=== PATIENT | female | born 1955 | race Caucasian/White ===

== ENCOUNTER 2016-09-10 13:17 | Inpatient (IN) ==
[2016-09-10] MEDS ORDERED: Ondansetron 4 MG/2 ML VIAL IVP ONE (13:22)
[2016-09-10] MEDS: niCARdipine 40 MG/200 ML MLS IVC SCH ×2 (14:10→22:00)
--- NOTE | 2016-09-10 14:16 | Emergency Department Note ---
Disposition Clinical Impression: Hypertensive encephalopathy Disposition: Admitted As Inpatient Altered Mental Status HPI - General Chief Complaint: ED Altered Mental Status Stated Complaint: SOB/AMS Time Seen by Provider: 09/10/16 13:22 Source: patient, EMS Limitations: altered mental status - History of Present Illness HPI Narrative: 61-year-old female presents with altered mental status that started yesterday evening. Patient states that initially she started from some breath and had one bout of vomiting. Her noticed that she had difficulty naming things , describing things however she did not have slurred speech, facial drooping, unilateral weakness, numbness. She did have confusion. Patient denies fever, chills Patient woke up this morning and continued to be confused. Her saw she was running into aceves. She did not have a fall. Patient was taking to [facility] for further evaluation. Her blood pressure was 184 1:30 at [facility]. EKG showed sinus bradycardia with rate of [address]-T wave changes. Her CBC, BMP were within normal limits. ABG showed a PCO2 of 53 and a pH of 7.39. Analysis was negative for infection. D-dimer was 553. Patient was transferred to [place] as she cannot fit in to the [facility] CT machine. When patient presented, her NIHSS was 0. Blood pressure was 240/110. She was actively vomiting. Confused, but alert oriented to time, place, situation, was slow to react and answer questions or commands. EMS stated that she had left neglect however this was not found on our examination. She was quickly given IV Zofran, and started on a Nicardipine drip. - Related Data Home Medications Medication Instructions Recorded Confirmed Furosemide [Lasix] 20 mg PO DAILY 09/10/16 09/10/16 Glimepiride [Amaryl] 8 mg PO DAILY 09/10/16 09/10/16 HydrALAZINE 25 mg PO Q8HR 09/10/16 09/10/16 Insulin Glargine,Hum.rec.anlog 45 unit SQ HS 09/10/16 09/10/16 [Lantus Solostar] Lisinopril [Zestril] 40 mg PO DAILY 09/10/16 09/10/16 Metformin HCl [Fortamet] 1,000 mg PO BID 09/10/16 09/10/16 Metoprolol [Lopressor] 400 mg PO DAILY 09/10/16 09/10/16 Sertraline [Zoloft] 50 mg PO DAILY 09/10/16 09/10/16 Valsartan 80 mg PO DAILY 09/10/16 09/10/16 Allergies Allergy/AdvReac Type Severity Reaction Status Date / Time No Known Allergies Allergy Unverified 08/10/16 09:22 Review of Systems: Constitutional: Denies fever, chills, reports confusion HEENT: Denies headache, vision changes, neck pain, sore throat, rhinorrhea Heart: Denies chest pain palpitations Lungs: Reports shortness of breath. Denies cough. 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 Moderate distress with slow to respond to questions however does follow commands HEENT: Head atraumatic, normocephalic, EOMI, PERRLA, neck nontender to palpation , absent Lymphadenopathy, Moist Mucous Membranes, Heart: Regular rate and rhythm with no murmur Lungs: Clear to auscultation bilaterally Abdomen: Soft nontender, nondistended positive bowel sounds Extremities: Absent pedal edema, Neuro: Cranial nerves II through XII intact, sensation equal bilaterally, strength upper and lower extremity 5/5, alert oriented 3 Vascular: Pedal and radialpulses 2 out of 4 - General Limitations: altered mental status General appearance: in no apparent distress Course Course Narrative: We will obtain CT head, urine tox, ethanol level. Patient's d-dimer is 559. Age adjusted d-dimer for this patient is 590. Patient's wells criterio is 0. We will not obtain CTA chest due to low risk. - Reevaluation(s) Reevaluation #1: Patient's urine tox, ethanol level, CT head have been negative. Chest x-ray showed enlarged cardiac silhouette otherwise negative. Patient has been having difficulty with her blood pressure recently. She is on valsartan, metoprolol, furosemide, lisinopril for her blood pressure. We started the patient on nicardipine drip and brought her blood pressure down to 200/100. Patient already feels better. She is less confused. She is more conversational. Patient will be admitted for evaluation of hypertensive encephalopathy. Patient has had a stress test in the last 6 months that was negative for ischemia. Her echocardiogram shows EF of 55% with no wall motion abnormalities. Patient had a bilateral renal artery Doppler that was negative for any stenosis in June. Time: 15:25 Reevaluation #2: I talked to Dr. Rosas who stated that since patient has hypertensive encephalopathy she will need to be closely managed in the ICU due to her being on nicardipine drip. We will contact critical care doctor. Time: 15:33 Reevaluation #3: Patient was accepted by . Time: 15:39 Additional Reevaluation(s): 1605: Patient was seen by critical care doctor. At this point her blood pressure is in systolic 156/80. They would like to discontinue Nicordipine drip and monitor her blood pressure. 1636: Patient's blood pressure is increased to 194/98. Critical care doctor stated that since this is patient's normal blood pressure at home she can be admitted to the floor. We will contact hospitalist. 16:45: Dr. Rosas accepted patient for admission. Vital Signs Temperature 98.5 F 09/10/16 13:18 Pulse Rate 64 09/10/16 13:18 Respiratory Rate 16 09/10/16 13:18 Blood Pressure 245/128 09/10/16 13:18 O2 Sat by Pulse Oximetry 97 09/10/16 13:18 Temperature 98.5 F 09/10/16 13:18 Pulse Rate 63 09/10/16 16:30 Respiratory Rate 16 09/10/16 16:30 Blood Pressure 194/98 09/10/16 16:30 O2 Sat by Pulse Oximetry 96 09/10/16 16:30 Oxygen Delivery Oxygen Delivery Nasal Cannula Altered Mental Status - Medical Records Medical records reviewed: Yes I reviewed the patient's medical records. - Lab Data Lab results reviewed: Yes I reviewed the patient's lab results. Lab Results 09/10/16 09/10/16 Range/Units 14:09 14:40 Urine Opiates Screen Negative (Euwlbu=971) ng/mL Ur Barbiturates Screen Negative (Lxwous=204) ng/mL Ur Phencyclidine Scrn Negative (Cutoff=25) ng/mL Ur Amphetamines Screen Negative (Glqihu=9432) ng/mL U Benzodiazepines Scrn Negative (Nekkly=928) ng/mL Urine Cocaine Screen Negative (Cutoff= 300) ng/mL U Marijuana (THC) Screen Negative (Cutoff = 50) ng/mL Ethyl Alcohol < 10 (0-10) mg/dL - Radiology Data Radiology results reviewed: Yes I reviewed the patient's radiology results. - EKG Data EKG attestation: Yes I reviewed and interpreted this EKG. EKG results narrative: Sinus with a rate of 65. No ST-T wave changes. No changes from previous. Normal sinus rhythm. TPA Checklist - LKW: 3-4.5 hrs Add. Contraindications Patient/family understanding: The patient/family members have been counseled and understood the risk, benefit , and alternatives of treatment. Critical Care Time Critical Care Time: Yes Total Critical Care Time: 30 Attestation: The high probability of a clinically significant, sudden or life threatening deterioration of the [neurological, cardiac] system(s) required my full and direct attention, intervention and personal management. The aggregate critical care time was [30] minutes. This time is in addition to time spent performing reported procedures but includes the following: [x] Data Review and interpretation [x] Patient assessment and monitoring of vital signs [x] Documentation [x] Medication orders and management Attestation Statement - Attestation Attestation: I examined this patient and my medical decision-making was reviewed with the STRATEGIC INSIGHTS LEAD/PA/Advanced Practice Nurse/Resident Physician. I agree with the documented findings, disposition and treatment plan as described except to the extent set forth below. I had face to face time with the patient. Patient was seen at [facility] for some shortness of breath and altered mental status. They stated that they could not get a CT of her head or her chest as she would not fit into the scanner. Her d-dimer actually was lower than age-adjusted d-dimer. She was nauseated on arrival but was awake and alert. They were concerned that she was neglecting her left side which was not the case here. Her NIH stroke scale actually was 0 here. Physical examination she follows instructions. She is able to tell us where she's at and able to tell the date. CT of the head was negative. We started the patient on nicardipine drip with improvement in her blood pressure to 200/100 down from 240/119. Her mentation seemed to improve. She will be admitted to the ICU.
[2016-09-10 14:58] LABS: Amphetamine Screen,Urine Negative ng/mL (Cutoff=1000); Barbiturate Screen,Urine Negative ng/mL (Cutoff=200); Benzodiazepines Screen,Urine Negative ng/mL (Cutoff=200); Cannabinoid Screen,Urine Negative ng/mL (Cutoff = 50); Cocaine Screen,Urine Negative ng/mL (Cutoff= 300); Opiate Screen,Urine Negative ng/mL (Cutoff=300); Phencyclidine Screen,Urine Negative ng/mL (Cutoff=25)
[2016-09-10] MEDS ORDERED: 0.9 % Sodium Chloride 1,000 ML IVC SCH (17:30)
[2016-09-10] MEDS ORDERED: Perflutren Lipid Microsphere 1.3 ML in 0.9 % Sodium Chloride 8.7 ML IVP ONE (17:51)
[2016-09-10 18:15] LABS: BUN/Creatinine Ratio 17 (6-26); Blood Urea Nitrogen 13 mg/dL (7-20); Calcium 11.6 mg/dL (8.6-10.8); Carbon Dioxide 31 mEq/L (19-29); Chloride 100 mEq/L (98-109); Creatine Kinase 35 Units/L (29-168); Glucose 127 mg/dL (70-99); Magnesium 1.5 mg/dL (1.6-2.6); Osmolality,Calculated 294 (280-300); Potassium 4.1 mEq/L (3.5-4.5); Sodium 141 mEq/L (136-145); eGFR For African Americans > 60 (> 60); eGFR For Non-African Americans > 60 (> 60)
[2016-09-10] MEDS ORDERED: Magnesium Sulfate 2 GM in D5% in Water 100 ML IVPB ONE (18:44)
--- NOTE | 2016-09-10 18:53 | Internal Med History&Physical ---
Date of Encounter: 09/10/16 Time of Encounter: 18:48 Assessment and Plan (1) Hypertensive encephalopathy Current visit: Yes Status: Acute Patient presents with hypertensive encephalopathy. mentioned that her blood pressure has been uncontrolled around one 80s over 100. We plan to decrease her blood pressure by 15% to a target of approximately 180/100. Currentlly she is off nicardipine drip because her pressure decreased after its initiation. If pressure starts increasing again will start the smaller dose of macabre nicardipine drip. Avoid reducing the pressure to less than 180/100. We do neuro checks every 2 hours or with any change in her mental status. She has headache but no neck pain.. No evidence of intracranial bleed on CT scan. If she continues to have headache despite control of pressure will repeat CT scan and/or LP to rule out subarachnoid bleed. I will ask cardiology service to follow the patient. Check renal Doppler, renin, aldosterone, metanephrins. Check echo. She is full code. Prognosis guarded. Internal Medicine - H&P: HPI Chief complaint: Altered mental status. History of present illness: Ms. Carlson is a 61 year old female with history of resistant hypertension on for blood pressure medications including a diuretic to which she is compliant according to her presented to outside emergency room today because of altered mental status. noted today that his has been less alert and interactive, confused, slurred speech, and unsteadiness. She has been having headache but no neck pain. She has also been short of breath with any exertion. She had went to outside ER and CT head showed no intracranial bleed. She was found to have severe HTN with SBP as high as 240 mmHg and diastolic 100- 120s. She was transferred to our facility, started on nicardipine drip with some improvement in her level of alertness. No neck pain. No seizures. No chest pain. No focal upper or lower extremity weakness or facial assymetry. No fever. Patient's mentioned that her blood pressure usually runs in the range of 180s systolic over 100 diastolic Past Med Surg Social Fam HX - Past Medical History Medical history: diabetes, hyperlipidemia, hypertension Psychiatric history: anxiety - Past Surgical History Surgical History: appendectomy, cholecystectomy, hysterectomy - Social History Smoking Status: Former smoker Smokeless Tobacco Status: No Alcohol use: none Drug use: none - Family History Mother Living Status: Cause of : cancer Father Cause of : heart aneursym Internal Medicine - H&P: Meds Ammonium Lactate [Lac-Hydrin Five] 1 appl TP BID 09/10/16 [History] Atorvastatin [Lipitor] 40 mg PO HS 09/10/16 [History] Furosemide [Lasix] 20 mg PO DAILY 09/10/16 [History] Glimepiride [Amaryl] 8 mg PO DAILY 09/10/16 [History] HydrALAZINE 25 mg PO Q8HR 09/10/16 [History] Insulin Glargine,Hum.rec.anlog [Lantus Solostar] 45 unit SQ HS 09/10/16 [History ] Lisinopril [Zestril] 40 mg PO DAILY 09/10/16 [History] Metformin HCl [Fortamet] 1,000 mg PO BID 09/10/16 [History] Metoprolol [Lopressor] 400 mg PO DAILY 09/10/16 [History] Sertraline [Zoloft] 50 mg PO DAILY 09/10/16 [History] Allergies No Known Allergies Allergy (Verified 09/10/16 18:41) All Systems PM: A 10-system review of systems was performed and is negative for pertinent findings except as documented above in the HPI. Review of systems: 10 point review systems is negative except for HPI - Constitutional Vitals: Temp Pulse Resp BP Pulse Ox 98.1 F 66 18 189/93 98 09/10/16 17:17 09/10/16 18:00 09/10/16 18:00 09/10/16 18:00 09/10/16 18:00 Exam: Gen.: patient is stuporous. arousable to verbal stimuli, oriented x3. No distress. Cardiac: normal S1 S2 no additional sounds or murmurs. Chest: Fair air entry. Limited exam because she cant take adequate inspiration Abdomen: Soft, non tender, non distended, normal BS LE: lax calf muscles Neuro: Patient moving all 4 extremeties. NO focal deficits. She is stuporous and cant comply with detailed neuro exam Internal Med - H&P Results - Labs CBC & Chem 7: 09/10/16 17:48 Labs: BMP 09/10/16 17:48 Sodium 141 Potassium 4.1 Chloride 100 Carbon Dioxide 31 H BUN 13 Creatinine 0.78 Glucose 127 H Calcium 11.6 H Cardiac Enzymes 09/10/16 Range/Units 17:48 Troponin I 0.02 (0-0.03) ng/mL
[2016-09-11] MEDS: Insulin LISPRO 300 UNITS/3 ML VIAL SQ SCH ×4 (01:35→20:00)
[2016-09-11 03:28] LABS: Basophils # 0.1 K/mcL (0.0-0.2); Basophils % 0.3 %; Eosinophils # 0.1 K/mcL (0.0-0.6); Eosinophils % 0.6 %; Hematocrit 44.9 % (35.3-44.9); Hemoglobin 14.3 g/dL (11.5-15.4); Immature Granulocytes % 0.5 % (0-4); Lymphocytes # 2.1 K/mcL (0.6-4.6); Lymphocytes % 13.4 %; Mean Corpuscular HGB Conc 31.8 g/dL (31.6-35.5); Mean Corpuscular Hemoglobin 25.9 pg (28.0-33.3); Mean Corpuscular Volume 81.3 fL (83.0-100.0); Monocytes # 1.2 K/mcL (0.0-1.3); Monocytes % 7.6 %; Neutrophils # 12.2 K/mcL (1.6-8.9); Platelet Count 225 K/mcL (140-400); Red Blood Count 5.52 M/mcL (3.82-4.97); Red Cell Distribution Width 15.6 % (11.5-14.5); Segmented Neutrophils % 77.6 %
[2016-09-11 03:41] LABS: BUN/Creatinine Ratio 18 (6-26); Blood Urea Nitrogen 16 mg/dL (7-20); Calcium 10.9 mg/dL (8.6-10.8); Carbon Dioxide 31 mEq/L (19-29); Chloride 100 mEq/L (98-109); Glucose 96 mg/dL (70-99); Magnesium 2.2 mg/dL (1.6-2.6); Osmolality,Calculated 293 (280-300); Potassium 4.1 mEq/L (3.5-4.5); Sodium 141 mEq/L (136-145); eGFR For African Americans > 60 (> 60); eGFR For Non-African Americans > 60 (> 60)
[2016-09-11] MEDS: niCARdipine 40 MG/200 ML MLS IVC SCH (06:27)
[2016-09-11] MEDS: Pantoprazole 40 MG VIAL IVP SCH (08:37)
[2016-09-11] MEDS ORDERED: Furosemide 20 MG TABLET PO SCH (09:00)
[2016-09-11] MEDS: Lisinopril 20 MG TABLET PO SCH (10:01)
[2016-09-11] MEDS: Metoprolol 100 MG TABLET PO SCH ×2 (10:01→19:43)
[2016-09-11 10:09] LABS: Bilirubin,Urine Small (Negative); Blood,Urine Large (Negative); Clarity,Urine Turbid (Clear); Color,Urine Dark Yellow (Yellow); Glucose,Urine (UA) Normal (Normal); Ketones,Urine Negative (Negative); Leukocyte Esterase,Urine Small (Negative); Nitrite,Urine Negative (Negative); Protein,Urine 100 mg/dL (Neg-Trace); Specific Gravity,Urine 1.028 (1.010-1.025); Urobilinogen,Urine Normal (Normal)
[2016-09-11 10:11] LABS: Bacteria,Urine None Seen per hpf (None-Few); Squamous Epithelial Cell,Urine Many per lpf (None-Few); WBC,Urine 15-30 per hpf (0-3)
--- NOTE | 2016-09-11 10:36 | ECHO - Doppler Report ---
Limited Echo with Imaging Enhancement Agent Name: Marcia Carlson Date of Study: 09/10/2016 Date: 1955 Ht: 67.0 in Medical Record#: [id number] Age: 61 Wt: 300.0 lb Gender: Female BSA: 2.4 Order #: [id number] Location: [facility] Room #: 12 Reading Physician: Bridget Mosley DO Prosthetic Dentist: Renee Carrillo RVT Ordering Physician: Eduardo Rosas MD Primary Physician: MONICA Ragland Indications: LV Function Impressions: LIMITED STUDY LVEF 60-65%. Definity was given. Suboptimal PLAX image to accurately measure LV size and wall thickness. RV is not well visualized. IVC is normal in size. Left Ventricular Wall Motion: Rest Echo Findings All wall segments showed normal motion. Findings: Study Quality * Technically sub-optimal due to body habitus. ECG Findings * Normal sinus rhythm. Left Ventricle * Definity echo contrast was used. * LVEF 60-65%. * Suboptimal PLAX view for LV measurements. Left Atrium * Normal left atrial size. Right Ventricle * RV is suboptimally visualized. IVC * Normal IVC dimensions and inspiratory collapse. History Hypertension Diabetes Hypercholesteremia Family History of CAD 2-17-17 a Previous Echo was performed. Contrast: Definity 1.3 ml in 8.7 ml of saline 2 ml. Measurements: BP: 189/ 93 2D Normal Values IVSd: 1.60 cm 0.6 - 1.0 cm LVIDd: 5.50 cm 3.7 - 5.6 cm LVPWd: 1.40 cm 0.6 - 1.1 cm LVIDs: 3.20 cm 1.5 - 3.6 cm %FS: 42.90 cm >25 % LA volume: 78 Updated by Bridget Mosley on 09/11/2016 10:29:23 AM electronically signed on 09/11/2016 10:30:25 AM with status of Final Wall Motion Kraus: 1=Normal, 2=Hypokinesis, 3=Akinesis, 4=Dyskinesis, 5=Aneurysmal, 6=Hyperkinetic, X=Not Visualized (Blank)=Missing
--- NOTE | 2016-09-11 11:46 | Internal Med Progress Note ---
Date of Encounter: 09/11/16 Time of Encounter: 11:46 - Assessment and plan (1) Acute encephalopathy Current Visit: Yes Status: Acute Assessment and plan: Patient with no objective cause at this time, save for Uncontrolled HTN At time of review, her BP has improved without medications Patient otherwise has no neurologic deficits, she is not aphasic or dysarthric and she moves all limbs spontaneously UA is unremarkable Urine toxicology was negative Head CT was unremarkable ECHO showed LVEF 60-65%, suboptimal study, otherwise normal EKG with no acute findings Head CT no acute events Obtain MRI, if negative, consider psych component Feed patient OOB to chair Resume home meds Fall precautions (2) Hypertensive urgency Current Visit: Yes Status: Acute Assessment and plan: As above (3) Morbid obesity Current Visit: Yes Status: Chronic Assessment and plan: Encourage weight loss Qualifiers: Obesity type: unspecified obesity type Qualified Code(s): E66.01 - Morbid ( severe) obesity due to excess calories - Subjective Interval history: 61 Y/O F with MH of Uncontrolled HTN, Morbid Obesity, HLD, Anxiety She is admitted and being managed for acute encephalopathy secondary to uncontrolled HTN Patient was said to have been altered on admission BP improved without NIcardipine drip Seen at bedside with RN Patient is awake, alert, oriented to time and place but not to person, she seems to be very slow (per RN this is new as the patient had been coversant with her prior to my arrival) - Constitutional Vitals: Temp Pulse Resp BP Pulse Ox 97.9 F 54 14 144/72 94 09/11/16 07:39 09/11/16 11:30 09/11/16 11:30 09/11/16 11:30 09/11/16 11:30 General appearance: Present: A&O X 2, morbidly obese, pleasant, no acute distress - Head Head exam: Present: atraumatic, normocephalic - Eye Eye exam: Present: PERRL, conjuntiva pink, sclera anicteric Pupils: Present: PERRL - Neck Neck exam general surgery: Present: supple, trachea midline. Absent: lymphadenopathy - Respiratory Respiratory exam: Present: CTAB. Absent: accessory muscle use, rales, rhonchi, wheezes - Cardiovascular Cardiovascular exam: Present: RRR, +S1, +S2. Absent: diastolic murmur, gallop, rubs, systolic murmur - GI/Abdominal GI/Abdominal exam: Present: normal bowel sounds, soft, no peritoneal signs. Absent: distended, tenderness - Extremities Exam Extremities exam: Present: warm, radial pulses palpable and symetrical. Absent : calf tenderness, cyanotic, pedal edema - Neurological Exam Neurological exam: Present: alert, CN II-XII intact, no focal deficits. Absent : oriented X3, pronater drift, facial droop, speech deficit - Skin Skin exam: Present: dry, intact Internal Medicine: Result - Labs CBC & Chem 7: 09/11/16 03:13 09/11/16 03:13 Labs: Short CBC 09/11/16 Range/Units 03:13 WBC 15.7 H D (4.3-11.1) K/mcL Hgb 14.3 (11.5-15.4) g/dL Hct 44.9 (35.3-44.9) % Plt Count 225 (140-400) K/mcL Neutrophils # 12.2 H (1.6-8.9) K/mcL BMP 09/11/16 03:13 Sodium 141 Potassium 4.1 Chloride 100 Carbon Dioxide 31 H BUN 16 Creatinine 0.88 Glucose 96 Calcium 10.9 H Cardiac Enzymes 09/10/16 Range/Units 22:46 Troponin I 0.01 (0-0.03) ng/mL Urine 09/11/16 Range/Units 09:55 Urine Color Dark Yellow (Yellow) Urine Clarity Turbid A (Clear) Urine pH 5.0 (5.0-8.0) pH Units Ur Specific [place] 1.028 H (1.010-1.025) Urine Protein 100 H (Neg-Trace) mg/dL Urine Glucose (UA) Normal (Normal) mg/dL - VTE Documentation of Mechanical Device: Intermittent pneumatic compression device Consult Discharge Plan - Plan Referrals: Talisha Desouza, [employer] [Primary Care Provider] -
[2016-09-11] MEDS ORDERED: hydrALAZINE 25 MG TABLET PO SCH (16:00)
[2016-09-11] MEDS: niCARdipine 20 MG/200 ML MLS IVC SCH ×2 (16:05→19:42)
[2016-09-11] MEDS: hydrALAZINE 25 MG TABLET PO SCH (16:25)
[2016-09-12] MEDS: hydrALAZINE 25 MG TABLET PO SCH ×3 (01:12→15:45)
[2016-09-12 05:26] LABS: Basophils % 0.3 %; Eosinophils # 0.1 K/mcL (0.0-0.6); Eosinophils % 0.6 %; Hematocrit 42.4 % (35.3-44.9); Immature Granulocytes % 0.6 % (0-4); Lymphocytes # 2.5 K/mcL (0.6-4.6); Lymphocytes % 19.1 %; Mean Corpuscular HGB Conc 30.7 g/dL (31.6-35.5); Mean Corpuscular Hemoglobin 25.3 pg (28.0-33.3); Mean Corpuscular Volume 82.7 fL (83.0-100.0); Mean Platelet Volume 11.1 fL (9.4-12.4); Monocytes # 1.3 K/mcL (0.0-1.3); Monocytes % 10.2 %; Neutrophils # 9.1 K/mcL (1.6-8.9); Platelet Count 206 K/mcL (140-400); Red Blood Count 5.13 M/mcL (3.82-4.97); Red Cell Distribution Width 15.9 % (11.5-14.5); Segmented Neutrophils % 69.2 %
[2016-09-12 05:40] LABS: BUN/Creatinine Ratio 28 (6-26); Blood Urea Nitrogen 24 mg/dL (7-20); Calcium 9.7 mg/dL (8.6-10.8); Carbon Dioxide 29 mEq/L (19-29); Chloride 102 mEq/L (98-109); Glucose 96 mg/dL (70-99); Osmolality,Calculated 290 (280-300); Sodium 138 mEq/L (136-145); eGFR For African Americans > 60 (> 60); eGFR For Non-African Americans > 60 (> 60)
[2016-09-12 05:42] LABS: Potassium 4.5 mEq/L (3.5-4.5)
[2016-09-12] MEDS: Furosemide 20 MG TABLET PO SCH (08:12)
[2016-09-12] MEDS: Insulin LISPRO 300 UNITS/3 ML VIAL SQ SCH ×3 (08:12→18:29)
[2016-09-12] MEDS: Lisinopril 20 MG TABLET PO SCH (08:13)
[2016-09-12] MEDS: Metoprolol 100 MG TABLET PO SCH ×2 (08:13→20:23)
[2016-09-12] MEDS: Pantoprazole 40 MG VIAL IVP SCH (08:14)
--- NOTE | 2016-09-12 10:09 | Internal Med Progress Note ---
Date of Encounter: 09/12/16 Time of Encounter: 09:00 - Assessment and plan (1) Acute encephalopathy Current Visit: Yes Status: Acute Assessment and plan: Patient with no objective cause at this time, save for Uncontrolled HTN BP improved with nicardipine Patient has no neurologic deficits this a.m UA is unremarkable Urine toxicology was negative Head CT was unremarkable ECHO showed LVEF 60-65%, suboptimal study, otherwise normal EKG with no acute findings Brain MRI unremarkable (2) Hypertensive urgency Current Visit: Yes Status: Acute Assessment and plan: IMproved Continue home meds (3) Morbid obesity Current Visit: Yes Status: Chronic Assessment and plan: Encourage weight loss Qualifiers: Obesity type: unspecified obesity type Qualified Code(s): E66.01 - Morbid ( severe) obesity due to excess calories (4) Leukocytosis Current Visit: Yes Status: Acute Assessment and plan: Afebrile patient No focal source of infection UA is unremarkable CXR done this a.m no infiltrates NO meningeal signs No GI symptoms Continue to monitor No antibiotics for now, will follow Qualifiers: Leukocytosis type: unspecified Qualified Code(s): D72.829 - Elevated white blood cell count, unspecified - Subjective Interval history: 61 Y/O F with MH of Uncontrolled HTN, Morbid Obesity, HLD, Anxiety She is admitted and being managed for acute encephalopathy secondary to uncontrolled HTN Seen at bedside, much more awake and alert, no new complains today - Constitutional Vitals: Temp Pulse Resp BP Pulse Ox 99.3 F 68 16 127/75 95 09/12/16 08:00 09/12/16 09:00 09/12/16 09:00 09/12/16 09:00 09/12/16 09:00 General appearance: Present: A&O X 2, morbidly obese, pleasant, no acute distress - Head Head exam: Present: atraumatic, normocephalic - Eye Eye exam: Present: PERRL, conjuntiva pink, sclera anicteric Pupils: Present: PERRL - Neck Neck exam general surgery: Present: supple, trachea midline. Absent: lymphadenopathy - Respiratory Respiratory exam: Present: CTAB. Absent: accessory muscle use, rales, rhonchi, wheezes - Cardiovascular Cardiovascular exam: Present: RRR, +S1, +S2. Absent: diastolic murmur, gallop, rubs, systolic murmur - GI/Abdominal GI/Abdominal exam: Present: normal bowel sounds, soft, no peritoneal signs. Absent: distended, tenderness - Extremities Exam Extremities exam: Present: warm, radial pulses palpable and symetrical. Absent : calf tenderness, cyanotic, pedal edema - Neurological Exam Neurological exam: Present: alert, CN II-XII intact, oriented X3, no focal deficits. Absent: pronater drift, facial droop, speech deficit - Skin Skin exam: Present: dry, intact Internal Medicine: Result - Labs CBC & Chem 7: 09/12/16 05:18 09/12/16 05:18 Labs: Short CBC 09/12/16 Range/Units 05:18 WBC 13.1 H (4.3-11.1) K/mcL Hgb 13.0 (11.5-15.4) g/dL Hct 42.4 (35.3-44.9) % Plt Count 206 (140-400) K/mcL Neutrophils # 9.1 H (1.6-8.9) K/mcL BMP 09/12/16 05:18 Sodium 138 Potassium 4.5 Chloride 102 Carbon Dioxide 29 BUN 24 H Creatinine 0.87 Glucose 96 Calcium 9.7 Urine 09/11/16 Range/Units 09:55 Urine Color Dark Yellow (Yellow) Urine Clarity Turbid A (Clear) Urine pH 5.0 (5.0-8.0) pH Units Ur Specific [place] 1.028 H (1.010-1.025) Urine Protein 100 H (Neg-Trace) mg/dL Urine Glucose (UA) Normal (Normal) mg/dL - Impressions Impressions Brain MRI 09/11/16 11:45 IMPRESSION: 1. No acute intracranial abnormality. Specifically, no acute infarction. 2. Periventricular, subcortical, and patchy pontine white matter signal abnormality compatible with mild to moderate chronic microvascular ischemic changes. D/ / Lester Smith MD / Lester Smtih MD Interpreting Provider: Lester Smith MD Chest X-Ray 09/12/16 08:26 IMPRESSION: No acute cardiopulmonary process identified. D/ / Landon Kellogg MD / Landon Kellogg MD Interpreting Provider: Landon Kellogg MD - VTE Documentation of Mechanical Device: Intermittent pneumatic compression device Consult Discharge Plan - Plan Referrals: Talisha Desouza, [employer] [Primary Care Provider] -
[2016-09-12] MEDS ORDERED: D5% in Water 1,000 ML IVC PRN (17:42)
[2016-09-12] MEDS ORDERED: *HR* Dextrose 50 % in Water (Syg) 50 ML SYRINGE IVP PRN (17:42)
[2016-09-12] MEDS ORDERED: Dextrose Gel 15 GM PO PRN ×2 (17:42)
[2016-09-12] MEDS: niCARdipine 20 MG/200 ML MLS IVC SCH ×5 (20:09→23:07)
[2016-09-12] MEDS ORDERED: Insulin LISPRO 300 UNITS/3 ML VIAL SQ SCH (21:00)
[2016-09-13] MEDS: hydrALAZINE 25 MG TABLET PO SCH ×2 (00:10→08:18)
[2016-09-13] MEDS: niCARdipine 20 MG/200 ML MLS IVC SCH ×2 (03:09→07:51)
[2016-09-13 03:33] LABS: Basophils # 0.1 K/mcL (0.0-0.2); Basophils % 0.4 %; Eosinophils # 0.1 K/mcL (0.0-0.6); Eosinophils % 1.1 %; Hematocrit 44.7 % (35.3-44.9); Hemoglobin 13.6 g/dL (11.5-15.4); Immature Granulocytes % 0.6 % (0-4); Lymphocytes # 2.3 K/mcL (0.6-4.6); Lymphocytes % 19.7 %; Mean Corpuscular HGB Conc 30.4 g/dL (31.6-35.5); Mean Corpuscular Hemoglobin 25.4 pg (28.0-33.3); Mean Corpuscular Volume 83.6 fL (83.0-100.0); Mean Platelet Volume 11.1 fL (9.4-12.4); Monocytes # 1.3 K/mcL (0.0-1.3); Monocytes % 10.7 %; Neutrophils # 7.9 K/mcL (1.6-8.9); Platelet Count 203 K/mcL (140-400); Red Blood Count 5.35 M/mcL (3.82-4.97); Red Cell Distribution Width 16.8 % (11.5-14.5); Segmented Neutrophils % 67.5 %
--- NOTE | 2016-09-13 06:10 | Electrocardiograph Report ---
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
[2016-09-13] MEDS: Insulin LISPRO 300 UNITS/3 ML VIAL SQ SCH ×2 (08:18→12:39)
[2016-09-13] MEDS: Metoprolol 100 MG TABLET PO SCH (08:18)
[2016-09-13] MEDS: Pantoprazole 40 MG VIAL IVP SCH (08:19)
[2016-09-13] MEDS: Lisinopril 20 MG TABLET PO SCH (08:19)
[2016-09-13] MEDS: Furosemide 20 MG TABLET PO SCH (08:19)
--- NOTE | 2016-09-13 08:58 | Discharge Summary ---
Date of Encounter: 09/13/16 Time of Encounter: 08:57 - Discharge Diagnosis (1) Acute encephalopathy Priority: Primary Status: Resolved (2) Hypertensive urgency Priority: Primary Status: Resolved (3) Morbid obesity Priority: Secondary Status: Chronic Qualifiers: Obesity type: unspecified obesity type Qualified Code(s): E66.01 - Morbid ( severe) obesity due to excess calories (4) Leukocytosis Priority: Primary Status: Resolved Qualifiers: Leukocytosis type: unspecified Qualified Code(s): D72.829 - Elevated white blood cell count, unspecified - Discharge Medications Prescriptions: HydrALAZINE 50 mg PO Q8HR #120 tablet Metoprolol [Lopressor] 200 mg PO DAILY #60 tablet Home Medications: Ammonium Lactate [Lac-Hydrin Five] 1 appl TP BID 09/10/16 [History] Atorvastatin [Lipitor] 40 mg PO HS 09/10/16 [History] Furosemide [Lasix] 20 mg PO DAILY 09/10/16 [History] Glimepiride [Amaryl] 8 mg PO DAILY 09/10/16 [History] Insulin Glargine,Hum.rec.anlog [Lantus Solostar] 45 unit SQ HS 09/10/16 [History ] Lisinopril [Zestril] 40 mg PO DAILY 09/10/16 [History] Metformin HCl [Fortamet] 1,000 mg PO BID 09/10/16 [History] Sertraline [Zoloft] 50 mg PO DAILY 09/10/16 [History] HydrALAZINE 50 mg PO Q8HR #120 tablet 09/13/16 [Rx] Metoprolol [Lopressor] 200 mg PO DAILY #60 tablet 09/13/16 [Rx] Allergies/Adverse Reactions: Allergies No Known Allergies Allergy (Verified 09/10/16 18:41) Procedures/tests Complete & Pending: Procedures Performed prior 72 hours Category Date Time Status MR head/brain wo con [MR] Stat MRI 09/11/16 11:45 Completed Date of admission: 09/10/16 18:58 Primary care physician: Talisha Desouza Discharging clinician: Dany Cleaning Anticipated date of discharge: 09/13/16 - Patient Status Disposition: Home, Self-Care Condition: Fair Functional capacity at discharge: independent ambulation Overall status at discharge: patient is back to baseline - Discharge Instructions Follow Up With: Talisha Desouza CNP [Primary Care Provider] - 09/20/16 11:00 am - Diet and Activity Activity: resume usual activities as tolerated Diet: low salt diet Interval History: Ms. Carlson is a 61 year old female with history of resistant hypertension on for blood pressure medications including a diuretic to which she is compliant according to her presented to outside emergency room 09/10/16 because of altered mental status. noted his has been less alert and interactive, confused, slurred speech, and unsteadiness. She had been having headache but no neck pain. She had also been short of breath with any exertion. She had went to outside ER and CT head showed no intracranial bleed. She was found to have severe HTN with SBP as high as 240 mmHg and diastolic 100-120s. She was transferred to our facility, started on nicardipine drip with some improvement in her level of alertness. No neck pain. No seizures. No chest pain. No focal upper or lower extremity weakness or facial assymetry. No fever. Patient's mentioned that her blood pressure usually runs in the range of 180s systolic over 100 diastolic Hospital course: Patient was admitted and managed for acute encephaloathy from hypertensive urgency. Work up during this hospitalization included UA which was unremarkable, Urine toxicology was negative, Head CT was unremarkable, Brain MRI with no active or acute findings, CXR and EKG unremarkable, ECHO showed LVEF 60-65%, suboptimal study, otherwise normal Patient was managed with IV Nicardipine infusion and er BP improved with resumption of her home meds Of note, patient reports not taking "one of my medications" because it made me sick Patient's home meds were resumed and had worked for her BP in the hospital It is likely that patient is very not compliant with her medications She is discharged home on Hydralazine 50mg q8hr, Lasix 20mg daily, Lopressor was decreased from 400mg daily to 200mg daily, Lisinopril was continued at 40mg daily Patient counselled extensively on sodium intake and compliance with medications and dietary restriction She is also counselled on benefits of weight loss for her chronic medical conditions She qualifies for evaluation for bariatric surgery, advised to discuss with PCP She has no neurological deficits, vitals have been stable and the patient is stable for discharge home with family. - Time Spent with Patient Total time spent providing and/or coordinating discharge services: Greater than 30 minutes (35 minutes spent preparing discharge, chart review, patient encounter, med rec and prescription and documentation) - Constitutional Vitals: Temp Pulse Resp BP Pulse Ox 98.3 F 63 16 148/79 98 09/13/16 08:33 09/13/16 08:00 09/13/16 08:00 09/13/16 08:00 09/13/16 08:00 General appearance: Present: A&O X 3, morbidly obese, pleasant, no acute distress - Head Head exam: Present: atraumatic, normocephalic - Eye Eye exam: Present: PERRL, conjuntiva pink, sclera anicteric Pupils: Present: PERRL - Neck Neck exam general surgery: Present: supple, trachea midline. Absent: lymphadenopathy - Respiratory Respiratory exam: Present: CTAB. Absent: accessory muscle use, rales, rhonchi, wheezes - Cardiovascular Cardiovascular exam: Present: RRR, +S1, +S2. Absent: diastolic murmur, gallop, rubs, systolic murmur - GI/Abdominal GI/Abdominal exam: Present: normal bowel sounds, soft, no peritoneal signs. Absent: distended, tenderness - Extremities Exam Extremities exam: Present: warm, radial pulses palpable and symetrical. Absent : calf tenderness, cyanotic, pedal edema - Neurological Exam Neurological exam: Present: alert, CN II-XII intact, normal gait, oriented X3, no focal deficits. Absent: pronater drift, facial droop, speech deficit - Skin Skin exam: Present: dry, intact - VTE Documentation of Mechanical Device: Intermittent pneumatic compression device
[2016-09-13 11:24] VITALS: BP 154/77
[2016-09-13 18:50] LABS: CK-MB (CK isoenzymes) 0 % (0-4); CK-MM (CK-isoenzymes) 100 % (96-100)
[2016-09-14 07:36] LABS: CK Total (Ck Isoenzymes) 34 U/L (20-180); CK-BB (CK isoenzymes) 0 % (0-0)
== END 2016-09-13 12:40 | disposition home or self-care (01) | DRG 78 ==
LOC: ICNU 13:17 → EMEROO 13:17 → ICNU 17:16
PROVIDERS: ADMIT Hospitalist; ATTEND Hospitalist

== ENCOUNTER 2017-09-15 12:14 | Observation (INO) ==
--- NOTE | 2017-09-15 13:19 | Emergency Department Note ---
Disposition Clinical Impression: Renal failure (ARF), acute on chronic, Hyperkalemia, Insulin dependent diabetes mellitus Disposition: Admitted As Inpatient Condition: Good General Adult HPI - General Chief complaint: ED General Medical Stated complaint: Kidney Failure Time Seen by Provider: 09/15/17 12:31 Source: patient Limitations: no limitations - History of Present Illness Pain Scale: 0 - Related Data Home Medications Medication Instructions Recorded Confirmed Furosemide [Lasix] 20 mg PO DAILY 09/10/16 09/15/17 Glimepiride [Amaryl] 8 mg PO DAILY 09/10/16 09/15/17 Insulin Glargine,Hum.rec.anlog 70 unit SQ HS 09/10/16 09/15/17 [Lantus Solostar] Lisinopril [Zestril] 40 mg PO DAILY 09/10/16 09/15/17 Metformin HCl [Fortamet] 1,000 mg PO BID 09/10/16 09/15/17 Sertraline [Zoloft] 100 mg PO DAILY 09/10/16 09/15/17 Aspirin [Lo-Dose Aspirin EC] 81 mg PO DAILY 12/08/16 09/15/17 hydrALAZINE [HydrALAZINE] 100 mg PO Q8HR 12/08/16 09/15/17 Allopurinol [Zyloprim 100 MG] 100 mg PO DAILY 09/15/17 09/15/17 Atorvastatin Calcium [Lipitor] 20 mg PO HS 09/15/17 09/15/17 Chlorthalidone [Chlorthalidone] 25 mg PO DAILY 09/15/17 09/15/17 Cholecalciferol (D-3) [Vitamin D] 5,000 unit PO DAILY 09/15/17 09/15/17 Liraglutide [Victoza 2-Isaak] 1.2 mg SQ DAILY 09/15/17 09/15/17 Metoprolol Succinate 200 mg PO BID 09/15/17 09/15/17 Allergies Allergy/AdvReac Type Severity Reaction Status Date / Time No Known Allergies Allergy Verified 09/15/17 15:39 Past Medical History - Past Medical History Medical history: Reports: diabetes, hyperlipidemia, hypertension, renal disease Surgical history: Reports: appendectomy, cholecystectomy, hysterectomy Psychiatric history: Reports: anxiety, depression [employer] MEDICAL EXAMINER history: Reports: no [employer] MEDICAL EXAMINER history - Social History Smoking Status: Former smoker Smokeless Tobacco Status: No Alcohol use: Reports: none Drug use: Reports: none Physical Exam - General Limitations: no limitations General appearance: alert Course Vital Signs Temperature 98 F 09/15/17 12:15 Pulse Rate 78 09/15/17 12:15 Respiratory Rate 18 09/15/17 12:15 Blood Pressure 132/65 09/15/17 12:15 O2 Sat by Pulse Oximetry 96 09/15/17 12:15 Temperature 98 F 09/15/17 12:15 Pulse Rate 78 09/15/17 12:15 Respiratory Rate 18 09/15/17 12:15 Blood Pressure 132/65 09/15/17 12:15 O2 Sat by Pulse Oximetry 96 09/15/17 12:15 Oxygen Delivery Oxygen Delivery Room Air Medical Decision Making - Lab Data Result diagrams: 09/15/17 14:13 09/15/17 14:13 Lab Results 09/15/17 09/15/17 09/15/17 Range/Units 12:32 12:32 12:32 WBC (4.3-11.1) K/mcL RBC (3.82-4.97) M/mcL Hgb (11.5-15.4) g/dL Hct (35.3-44.9) % MCV (83.0-100.0) fL MCH (28.0-33.3) pg MCHC (31.6-35.5) g/dL RDW (11.5-14.5) % Plt Count (140-400) K/mcL MPV (9.4-12.4) fL Immature Gran % (0-4) % Seg Neutrophils % % Lymphocytes % % Monocytes % % Eosinophils % % Basophils % % Neutrophils # (1.6-8.9) K/mcL Lymphocytes # (0.6-4.6) K/mcL Monocytes # (0.0-1.3) K/mcL Eosinophils # (0.0-0.6) K/mcL Basophils # (0.0-0.2) K/mcL PT (9.4-12.1) Seconds INR APTT (26.0-36.0) Seconds Sodium (136-145) mEq/L Potassium (3.5-5.1) mEq/L Chloride (98-107) mEq/L Carbon Dioxide (23-29) mEq/L BUN (8-23) mg/dL Creatinine (0.60-1.20) mg/dL Est GFR ( Amer) (> 60) Est GFR (Non-Af Amer) (> 60) BUN/Creatinine Ratio (6-26) Glucose (70-105) mg/dL Calculated Osmolality (280-300) Calcium (8.6-10.3) mg/dL Phosphorus (2.7-4.5) mg/dL Creatine Kinase (30-223) Units/L Albumin (3.5-5.7) g/dL Ur Specimen Adequacy See below A Urine Color Yellow (Yellow) Urine Clarity Clear (Clear) Urine pH 5.0 (5.0-8.0) pH Units Ur Specific [place] 1.020 (1.010-1.025) Urine Protein Negative (Neg-Trace) mg/dL Urine Glucose (UA) 250 H (Normal) mg/dL Urine Ketones Negative (Negative) mg/dL Urine Blood Negative (Negative) Urine Nitrite Negative (Negative) Urine Bilirubin Negative (Negative) Urine Urobilinogen Normal (Normal) mg/dL Ur Leukocyte Esterase Negative (Negative) Ur Culture Indicated? NO (NO) Urine Osmolality 386 (300-1090) mOsm/kg Urine Creatinine 66 mg/dL Urine Sodium 72.5 mEq/L Rheumatoid Factor (Less than 14) IU/mL 09/15/17 09/15/17 09/15/17 Range/Units 14:13 14:13 14:13 WBC 8.6 (4.3-11.1) K/mcL RBC 4.55 (3.82-4.97) M/mcL Hgb 12.4 (11.5-15.4) g/dL Hct 37.9 (35.3-44.9) % MCV 83.3 (83.0-100.0) fL MCH 27.3 L (28.0-33.3) pg MCHC 32.7 (31.6-35.5) g/dL RDW 14.6 H (11.5-14.5) % Plt Count 199 (140-400) K/mcL MPV 11.3 (9.4-12.4) fL Immature Gran % 0.9 (0-4) % Seg Neutrophils % 73.4 % Lymphocytes % 16.6 % Monocytes % 7.2 % Eosinophils % 1.6 % Basophils % 0.3 % Neutrophils # 6.3 (1.6-8.9) K/mcL Lymphocytes # 1.4 (0.6-4.6) K/mcL Monocytes # 0.6 (0.0-1.3) K/mcL Eosinophils # 0.1 (0.0-0.6) K/mcL Basophils # 0.0 (0.0-0.2) K/mcL PT 10.4 (9.4-12.1) Seconds INR 1.0 APTT 29.2 (26.0-36.0) Seconds Sodium 134 L (136-145) mEq/L Potassium 5.5 H (3.5-5.1) mEq/L Chloride 96 L (98-107) mEq/L Carbon Dioxide 31 H (23-29) mEq/L BUN 75 H (8-23) mg/dL Creatinine 3.65 H (0.60-1.20) mg/dL Est GFR ( Amer) 15 L (> 60) Est GFR (Non-Af Amer) 13 L (> 60) BUN/Creatinine Ratio 21 (6-26) Glucose 336 H (70-105) mg/dL Calculated Osmolality 313 H (280-300) Calcium 10.2 (8.6-10.3) mg/dL Phosphorus 3.4 (2.7-4.5) mg/dL Creatine Kinase (30-223) Units/L Albumin 4.4 (3.5-5.7) g/dL Ur Specimen Adequacy Urine Color (Yellow) Urine Clarity (Clear) Urine pH (5.0-8.0) pH Units Ur Specific [place] (1.010-1.025) Urine Protein (Neg-Trace) mg/dL Urine Glucose (UA) (Normal) mg/dL Urine Ketones (Negative) mg/dL Urine Blood (Negative) Urine Nitrite (Negative) Urine Bilirubin (Negative) Urine Urobilinogen (Normal) mg/dL Ur Leukocyte Esterase (Negative) Ur Culture Indicated? (NO) Urine Osmolality (300-1090) mOsm/kg Urine Creatinine mg/dL Urine Sodium mEq/L Rheumatoid Factor (Less than 14) IU/mL 09/15/17 09/15/17 Range/Units 14:21 14:21 WBC (4.3-11.1) K/mcL RBC (3.82-4.97) M/mcL Hgb (11.5-15.4) g/dL Hct (35.3-44.9) % MCV (83.0-100.0) fL MCH (28.0-33.3) pg MCHC (31.6-35.5) g/dL RDW (11.5-14.5) % Plt Count (140-400) K/mcL MPV (9.4-12.4) fL Immature Gran % (0-4) % Seg Neutrophils % % Lymphocytes % % Monocytes % % Eosinophils % % Basophils % % Neutrophils # (1.6-8.9) K/mcL Lymphocytes # (0.6-4.6) K/mcL Monocytes # (0.0-1.3) K/mcL Eosinophils # (0.0-0.6) K/mcL Basophils # (0.0-0.2) K/mcL PT (9.4-12.1) Seconds INR APTT (26.0-36.0) Seconds Sodium (136-145) mEq/L Potassium (3.5-5.1) mEq/L Chloride (98-107) mEq/L Carbon Dioxide (23-29) mEq/L BUN (8-23) mg/dL Creatinine (0.60-1.20) mg/dL Est GFR ( Amer) (> 60) Est GFR (Non-Af Amer) (> 60) BUN/Creatinine Ratio (6-26) Glucose (70-105) mg/dL Calculated Osmolality (280-300) Calcium (8.6-10.3) mg/dL Phosphorus (2.7-4.5) mg/dL Creatine Kinase 37 (30-223) Units/L Albumin (3.5-5.7) g/dL Ur Specimen Adequacy Urine Color (Yellow) Urine Clarity (Clear) Urine pH (5.0-8.0) pH Units Ur Specific [place] (1.010-1.025) Urine Protein (Neg-Trace) mg/dL Urine Glucose (UA) (Normal) mg/dL Urine Ketones (Negative) mg/dL Urine Blood (Negative) Urine Nitrite (Negative) Urine Bilirubin (Negative) Urine Urobilinogen (Normal) mg/dL Ur Leukocyte Esterase (Negative) Ur Culture Indicated? (NO) Urine Osmolality (300-1090) mOsm/kg Urine Creatinine mg/dL Urine Sodium mEq/L Rheumatoid Factor < 10 (Less than 14) IU/mL Attestation Statement - Attestation Attestation: I examined this patient and my medical decision-making was reviewed with the [employer]/PA/Advanced Practice Nurse/Resident Physician. I agree with the documented findings, disposition and treatment plan as described except to the extent set forth below. I did see the patient and spoke with her and she is resting comfortably on the edge of the bed and she denies any fevers or vomiting or confusion or dizziness or any chest pain or any other problems. Was sent here because of elevated at a level and I did review these results and the creatinine was 3.7 yesterday with a normal potassium. Previous was 2.4. Care will be coordinated with Dr. Rob, her machine puller over [id number] I did review the patient's EKG showing normal sinus rhythm with a rate of 76 without acute ischemic changes or evidence of arrhythmia 0686
--- NOTE | 2017-09-15 13:55 | Emergency Department Note ---
Disposition Clinical Impression: Renal failure (ARF), acute on chronic, Hyperkalemia, Insulin dependent diabetes mellitus Disposition: Admitted As Inpatient Condition: Good Referrals: Yoanna Fierro DO [Primary Care Provider] - Forms: ED Satisfaction Letter, Work/School Release Time of Disposition: 15:07 General Adult HPI - General Chief complaint: ED General Medical Stated complaint: Kidney Failure Time Seen by Provider: 09/15/17 12:31 Source: patient Limitations: no limitations Nursing Notes Reviewed: Yes Vital Signs Reviewed: Yes - History of Present Illness HPI Narrative: Patient presents to ED with the chief complaint of renal failure. Patient saw her vp medical yesterday and as a routine follow-up and they checked her renal function and her GFR was significantly lower than her baseline. I spoke with the patient's vp medical, Dr. Barton, who states her GFR had been previously in the 30s, but they checked it yesterday and it was down into the teens. Reports that he wanted her admitted for a renal biopsy. Patient reports that she feels fine. She denies any fever, chills, chest pain, shortness breath, abdominal pain, vomiting, diarrhea, pain or swelling in her legs, dysuria, hematuria. She states that she is been making a normal amount of urine and her urine has been normal in color. She does complain of some morning nausea that is been ongoing for the last few months, but otherwise feels baseline. She does have a history of insulin-dependent diabetes. Pain Scale: 0 - Related Data Home Medications Medication Instructions Recorded Confirmed Furosemide [Lasix] 20 mg PO DAILY 09/10/16 12/08/16 Glimepiride [Amaryl] 8 mg PO DAILY 09/10/16 12/08/16 Insulin Glargine,Hum.rec.anlog 70 unit SQ HS 09/10/16 12/08/16 [Lantus Solostar] Lisinopril [Zestril] 40 mg PO DAILY 09/10/16 12/08/16 Metformin HCl [Fortamet] 1,000 mg PO BID 09/10/16 12/08/16 Sertraline [Zoloft] 100 mg PO DAILY 09/10/16 12/08/16 Aspirin [Lo-Dose Aspirin EC] 81 mg PO DAILY 12/08/16 12/08/16 hydrALAZINE [HydrALAZINE] 100 mg PO Q8HR 12/08/16 12/08/16 Allopurinol [Zyloprim 100 MG] 100 mg PO DAILY 09/15/17 09/15/17 Chlorthalidone [Chlorthalidone] 25 mg PO DAILY 09/15/17 09/15/17 Liraglutide [Victoza 2-Isaak] 1.2 mg SQ DAILY 09/15/17 09/15/17 Metoprolol Succinate 200 mg PO BID 09/15/17 09/15/17 Allergies Allergy/AdvReac Type Severity Reaction Status Date / Time No Known Allergies Allergy Verified 09/10/16 18:41 Review of Systems: As reviewed in the HPI. All other systems reviewed are negative or normal. Past Medical History - Past Medical History Attestation: Yes The following information was validated with the patient. 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 BASEBALL COACH history: Reports: no ASSISTANT BASEBALL COACH history - Social History Smoking Status: Former smoker Smokeless Tobacco Status: No Alcohol use: Reports: none Drug use: Reports: none Physical Exam CONSTITUTIONAL: [well appearing in no acute distress, obese] SKIN: [Warm, dry, and intact without rash] EYES: [extraocular movements are grossly intact, clear conjunctiva] HENT: [Normocephalic, atraumatic, moist mucus membranes] NECK: [no obvious swelling, normal range of motion] PULMONARY: [normal chest rise and fall, no respiratory distress or stridor CARDIOVASCULAR: [regular rate, distal extremities are warm and well perfused] GASTROINSTESTINAL: [nondistended, non-tender] GENITOURINARY: [deferred] NEUROLOGIC: [normal speech, moves all extremities] MUSCULOSKELETAL: [no gross deformities, atraumatic] PSYCHIATRIC: [normal mood and affect] - General Limitations: no limitations General appearance: alert Course Course Narrative: Patient presenting at the request of Dr. Barton for admission for renal biopsy. We will check basic labs, EKG, chest x-ray, urine electrolytes and urine osmolality for preop clearance. Dr. Barton did recommended gentle rehydration, so we will start that here. The patient and family agreeable with plan and are agreeable for admission. - Reevaluation(s) Reevaluation #1: Patient's labs are coming back. Her GFR is low at 13. Her FENa is 3.0% suggesting intrinsic cause of her renal failure. She appears euvolemic. Her potassium is 5.5. However, there are no EKG changes to suggest need for acute treatment. We will go ahead and give her 10U insulin to help with her hyperglycemia and hyperK. Will recheck BMP in a few hours once admitted and if increasing, would recommend treatment at that time. Patient will be admitted to the hospitalist service with nephrology consult who has already been down to see the patient in the ED. Time: 15:04 - Consultations Consultation #1: Admitted to the hospitalist service under Dino Valdez Time: 15:31 Vital Signs Temperature 98 F 09/15/17 12:15 Pulse Rate 78 09/15/17 12:15 Respiratory Rate 18 09/15/17 12:15 Blood Pressure 132/65 09/15/17 12:15 O2 Sat by Pulse Oximetry 96 09/15/17 12:15 Temperature 98 F 09/15/17 12:15 Pulse Rate 78 09/15/17 12:15 Respiratory Rate 18 09/15/17 12:15 Blood Pressure 132/65 09/15/17 12:15 O2 Sat by Pulse Oximetry 96 09/15/17 12:15 Oxygen Delivery Oxygen Delivery Room Air Medical Decision Making - Medical Records Medical records reviewed: Yes I reviewed the patient's medical records. - Lab Data Lab results reviewed: Yes I reviewed the patient's lab results. Result diagrams: 09/15/17 14:13 09/15/17 14:13 Lab Results 09/15/17 09/15/17 09/15/17 Range/Units 12:32 12:32 12:32 WBC (4.3-11.1) K/mcL RBC (3.82-4.97) M/mcL Hgb (11.5-15.4) g/dL Hct (35.3-44.9) % MCV (83.0-100.0) fL MCH (28.0-33.3) pg MCHC (31.6-35.5) g/dL RDW (11.5-14.5) % Plt Count (140-400) K/mcL MPV (9.4-12.4) fL Immature Gran % (0-4) % Seg Neutrophils % % Lymphocytes % % Monocytes % % Eosinophils % % Basophils % % Neutrophils # (1.6-8.9) K/mcL Lymphocytes # (0.6-4.6) K/mcL Monocytes # (0.0-1.3) K/mcL Eosinophils # (0.0-0.6) K/mcL Basophils # (0.0-0.2) K/mcL PT (9.4-12.1) Seconds INR APTT (26.0-36.0) Seconds Sodium (136-145) mEq/L Potassium (3.5-5.1) mEq/L Chloride (98-107) mEq/L Carbon Dioxide (23-29) mEq/L BUN (8-23) mg/dL Creatinine (0.60-1.20) mg/dL Est GFR ( Amer) (> 60) Est GFR (Non-Af Amer) (> 60) BUN/Creatinine Ratio (6-26) Glucose (70-105) mg/dL Calculated Osmolality (280-300) Calcium (8.6-10.3) mg/dL Phosphorus (2.7-4.5) mg/dL Creatine Kinase (30-223) Units/L Albumin (3.5-5.7) g/dL Ur Specimen Adequacy See below A Urine Color Yellow (Yellow) Urine Clarity Clear (Clear) Urine pH 5.0 (5.0-8.0) pH Units Ur Specific Jensen 1.020 (1.010-1.025) Urine Protein Negative (Neg-Trace) mg/dL Urine Glucose (UA) 250 H (Normal) mg/dL Urine Ketones Negative (Negative) mg/dL Urine Blood Negative (Negative) Urine Nitrite Negative (Negative) Urine Bilirubin Negative (Negative) Urine Urobilinogen Normal (Normal) mg/dL Ur Leukocyte Esterase Negative (Negative) Ur Culture Indicated? NO (NO) Urine Osmolality 386 (300-1090) mOsm/kg Urine Creatinine 66 mg/dL Urine Sodium 72.5 mEq/L Rheumatoid Factor (Less than 14) IU/mL 09/15/17 09/15/17 09/15/17 Range/Units 14:13 14:13 14:13 WBC 8.6 (4.3-11.1) K/mcL RBC 4.55 (3.82-4.97) M/mcL Hgb 12.4 (11.5-15.4) g/dL Hct 37.9 (35.3-44.9) % MCV 83.3 (83.0-100.0) fL MCH 27.3 L (28.0-33.3) pg MCHC 32.7 (31.6-35.5) g/dL RDW 14.6 H (11.5-14.5) % Plt Count 199 (140-400) K/mcL MPV 11.3 (9.4-12.4) fL Immature Gran % 0.9 (0-4) % Seg Neutrophils % 73.4 % Lymphocytes % 16.6 % Monocytes % 7.2 % Eosinophils % 1.6 % Basophils % 0.3 % Neutrophils # 6.3 (1.6-8.9) K/mcL Lymphocytes # 1.4 (0.6-4.6) K/mcL Monocytes # 0.6 (0.0-1.3) K/mcL Eosinophils # 0.1 (0.0-0.6) K/mcL Basophils # 0.0 (0.0-0.2) K/mcL PT 10.4 (9.4-12.1) Seconds INR 1.0 APTT 29.2 (26.0-36.0) Seconds Sodium 134 L (136-145) mEq/L Potassium 5.5 H (3.5-5.1) mEq/L Chloride 96 L (98-107) mEq/L Carbon Dioxide 31 H (23-29) mEq/L BUN 75 H (8-23) mg/dL Creatinine 3.65 H (0.60-1.20) mg/dL Est GFR ( Amer) 15 L (> 60) Est GFR (Non-Af Amer) 13 L (> 60) BUN/Creatinine Ratio 21 (6-26) Glucose 336 H (70-105) mg/dL Calculated Osmolality 313 H (280-300) Calcium 10.2 (8.6-10.3) mg/dL Phosphorus 3.4 (2.7-4.5) mg/dL Creatine Kinase (30-223) Units/L Albumin 4.4 (3.5-5.7) g/dL Ur Specimen Adequacy Urine Color (Yellow) Urine Clarity (Clear) Urine pH (5.0-8.0) pH Units Ur Specific Jensen (1.010-1.025) Urine Protein (Neg-Trace) mg/dL Urine Glucose (UA) (Normal) mg/dL Urine Ketones (Negative) mg/dL Urine Blood (Negative) Urine Nitrite (Negative) Urine Bilirubin (Negative) Urine Urobilinogen (Normal) mg/dL Ur Leukocyte Esterase (Negative) Ur Culture Indicated? (NO) Urine Osmolality (300-1090) mOsm/kg Urine Creatinine mg/dL Urine Sodium mEq/L Rheumatoid Factor (Less than 14) IU/mL 09/15/17 09/15/17 Range/Units 14:21 14:21 WBC (4.3-11.1) K/mcL RBC (3.82-4.97) M/mcL Hgb (11.5-15.4) g/dL Hct (35.3-44.9) % MCV (83.0-100.0) fL MCH (28.0-33.3) pg MCHC (31.6-35.5) g/dL RDW (11.5-14.5) % Plt Count (140-400) K/mcL MPV (9.4-12.4) fL Immature Gran % (0-4) % Seg Neutrophils % % Lymphocytes % % Monocytes % % Eosinophils % % Basophils % % Neutrophils # (1.6-8.9) K/mcL Lymphocytes # (0.6-4.6) K/mcL Monocytes # (0.0-1.3) K/mcL Eosinophils # (0.0-0.6) K/mcL Basophils # (0.0-0.2) K/mcL PT (9.4-12.1) Seconds INR APTT (26.0-36.0) Seconds Sodium (136-145) mEq/L Potassium (3.5-5.1) mEq/L Chloride (98-107) mEq/L Carbon Dioxide (23-29) mEq/L BUN (8-23) mg/dL Creatinine (0.60-1.20) mg/dL Est GFR ( Amer) (> 60) Est GFR (Non-Af Amer) (> 60) BUN/Creatinine Ratio (6-26) Glucose (70-105) mg/dL Calculated Osmolality (280-300) Calcium (8.6-10.3) mg/dL Phosphorus (2.7-4.5) mg/dL Creatine Kinase 37 (30-223) Units/L Albumin (3.5-5.7) g/dL Ur Specimen Adequacy Urine Color (Yellow) Urine Clarity (Clear) Urine pH (5.0-8.0) pH Units Ur Specific Jensen (1.010-1.025) Urine Protein (Neg-Trace) mg/dL Urine Glucose (UA) (Normal) mg/dL Urine Ketones (Negative) mg/dL Urine Blood (Negative) Urine Nitrite (Negative) Urine Bilirubin (Negative) Urine Urobilinogen (Normal) mg/dL Ur Leukocyte Esterase (Negative) Ur Culture Indicated? (NO) Urine Osmolality (300-1090) mOsm/kg Urine Creatinine mg/dL Urine Sodium mEq/L Rheumatoid Factor < 10 (Less than 14) IU/mL - Radiology Data Radiology results reviewed: Yes I reviewed the patient's radiology results. - EKG Data EKG #1 EKG attestation: Yes I reviewed and interpreted this EKG. EKG results narrative: Sinus rhythm with first-degree AV block, rate 76, DE interval 219, QRS 114, QTC 403, left axis deviation, intraventricular conduction delay which is unchanged from previous.
--- NOTE | 2017-09-15 14:14 | Nephrology Consult Note ---
Date of Encounter: 09/15/17 Time of Encounter: 14:10 Assessment and Plan (1) IAN (acute kidney injury) Current Visit: Yes Status: Acute Labs ordered for renal workup. Stop Aspirin in case renal biopsy is needed. Avoid nephrotoxins and please renal dose all medications. Strict I/O. (2) Nausea & vomiting Current Visit: Yes Status: Acute Per primary team. Qualifiers: Qualified Code(s): R11.2 - Nausea with vomiting, unspecified (3) Diarrhea Current Visit: Yes Status: Acute Diarrhea at home for almost 4 weeks. Will order stool for C-Diff. Qualifiers: Qualified Code(s): R19.7 - Diarrhea, unspecified History of Present Illness - Reason for Consult Acute Kidney Injury, Chronic Kidney Disease - History of Present Illness Ms Carlson is a 62 year old female that is a CKD 4 that has worsened in the last 3 months. She is a patient of Dr. Barton. PMH: Obesity, HTN, HLD, DMII ( uncontrolled). She was seen in the office on 09/14/17, labs were ordered and she was advised to go to the ED for workup. In the past 4 weeks she has experienced nausea, diarrhea, and emesis. The emesis is clear, no signs of Johnnie blood or coffee ground emesis. The episodes are only in the morning. Denies abdominal pain, per the record she has not had a colonoscopy in years. There is concern for her recent decline and the need for a possible renal biopsy. With nausea/vomiting/diarrhea there is question as whether IAN is dehydration or worsening renal function. Serology is pending to determine. DM is uncontrolled with most recent A1C 10, there might be a component of diabetic nephropathy. Past Med Surg Social Fam HX - Past Medical History Medical history: diabetes, hyperlipidemia, hypertension, renal disease Psychiatric history: anxiety, depression - Past Surgical History Surgical History: appendectomy, cholecystectomy, hysterectomy - Social History Smoking Status: Former smoker Smokeless Tobacco Status: No Alcohol use: none Drug use: none - Family History Mother Living Status: Medications and Allergies Furosemide [Lasix] 20 mg PO DAILY 09/10/16 [History] Glimepiride [Amaryl] 8 mg PO DAILY 09/10/16 [History] Insulin Glargine,Hum.rec.anlog [Lantus Solostar] 60 unit SQ HS 09/10/16 [History ] Lisinopril [Zestril] 40 mg PO DAILY 09/10/16 [History] Metformin HCl [Fortamet] 1,000 mg PO BID 09/10/16 [History] Sertraline [Zoloft] 100 mg PO DAILY 09/10/16 [History] Metoprolol [Lopressor] 200 mg PO DAILY #60 tablet 09/13/16 [Rx] Aspirin [Lo-Dose Aspirin EC] 81 mg PO DAILY 12/08/16 [History] Fenofibrate Nanocrystallized [Tricor] 48 mg PO DAILY 12/08/16 [History] Meclizine [Antivert] 25 mg PO Q6H PRN #20 tablet 12/08/16 [Rx] Promethazine [Phenergan] 12.5 - 25 mg PO Q6HR PRN #30 tablet 12/08/16 [Rx] cloNIDine HCl [CloNIDine HCl] 0.1 mg PO TID 12/08/16 [History] hydrALAZINE [HydrALAZINE] 100 mg PO Q8HR 12/08/16 [History] 3 Allergy/AdvReac Type Severity Reaction Status Date / Time No Known Allergies Allergy Verified 09/10/16 18:41 Review of Systems Constitutional: no anorexia, no fatigue, no fever(s) Cardiovascular: no chest pain, no dyspnea, no irregular heart rhythm, no leg edema Respiratory: no cough Gastrointestinal: as per HPI Exam - Vital Signs Vital signs: Initial Vital Signs Temp Pulse Resp BP Pulse Ox 98 F 78 18 132/65 96 09/15/17 12:15 09/15/17 12:15 09/15/17 12:15 09/15/17 12:15 09/15/17 12:15 Vital Signs - Last 8 Hours Temp Pulse Resp BP Pulse Ox 09/15/17 12:15 98 F 78 18 132/65 96 Intake and Output 09/14/17 09/15/17 09/15/17 23:59 07:59 15:59 Other: Weight 122.016 kg Patient Weight 09/15/17 23:59 Weight 122.016 kg - General Appearance General appearance: obese EENT: ATNC, hearing intact, vision intact Neck: supple Respiratory: clear Cardiology: no edema, normal S1, normal S2 Gastrointestinal: normoactive bowel sounds, no tenderness, no guarding Integumentary: no rash, warm and dry Neurologic: alert and oriented x3 Psychiatric: mood/affect appropriate Results - Lab Results 09/15/17 14:13 Consult Discharge Plan - Plan Referrals: Yoanna Fierro DO [Primary Care Provider] -
[2017-09-15 14:27] LABS: Basophils % 0.3 %; Eosinophils # 0.1 K/mcL (0.0-0.6); Eosinophils % 1.6 %; Hematocrit 37.9 % (35.3-44.9); Hemoglobin 12.4 g/dL (11.5-15.4); Immature Granulocytes % 0.9 % (0-4); Lymphocytes # 1.4 K/mcL (0.6-4.6); Lymphocytes % 16.6 %; Mean Corpuscular HGB Conc 32.7 g/dL (31.6-35.5); Mean Corpuscular Hemoglobin 27.3 pg (28.0-33.3); Mean Corpuscular Volume 83.3 fL (83.0-100.0); Mean Platelet Volume 11.3 fL (9.4-12.4); Monocytes # 0.6 K/mcL (0.0-1.3); Monocytes % 7.2 %; Neutrophils # 6.3 K/mcL (1.6-8.9); Platelet Count 199 K/mcL (140-400); Red Blood Count 4.55 M/mcL (3.82-4.97); Red Cell Distribution Width 14.6 % (11.5-14.5); Segmented Neutrophils % 73.4 %
[2017-09-15 14:29] LABS: Bilirubin,Urine Negative (Negative); Blood,Urine Negative (Negative); Color,Urine Yellow (Yellow); Glucose,Urine (UA) 250 mg/dL (Normal); Ketones,Urine Negative (Negative); Leukocyte Esterase,Urine Negative (Negative); Nitrite,Urine Negative (Negative); Protein,Urine Negative (Neg-Trace); Urobilinogen,Urine Normal (Normal)
[2017-09-15 14:30] LABS: Clarity,Urine Clear (Clear)
[2017-09-15 14:33] LABS: Prothrombin Time 10.4 Seconds (9.4-12.1)
[2017-09-15 14:36] LABS: Activated Partial Thrombo Time 29.2 Seconds (26.0-36.0)
[2017-09-15 14:48] LABS: Sodium, Urine 72.5 mEq/L
[2017-09-15 14:49] LABS: Albumin 4.4 g/dL (3.5-5.7); Calcium 10.2 mg/dL (8.6-10.3); Phosphorous 3.4 mg/dL (2.7-4.5); Potassium 5.5 mEq/L (3.5-5.1)
[2017-09-15] MEDS ORDERED: Insulin Human Regular 10 UNIT in 0.9 % Sodium Chloride 10 ML IV ONE (15:09)
[2017-09-15] MEDS ORDERED: 0.9 % Sodium Chloride 1,000 ML IVC SCH (17:15)
--- NOTE | 2017-09-15 20:42 | Internal Med History&Physical ---
<CanCastro fontaine - Last Filed: 09/15/17 20:38> Date of Encounter: 09/15/17 Time of Encounter: 20:38 Internal Medicine - H&P: HPI Chief complaint: Kidney biopsy Admitted From: Emergency Dept Plans for Post Hospital Care: Home History of present illness: Ms. Carlson is a 62 year old female with past medical history of type II diabetes, pretension, sleep apnea, obesity, hyperlipidemia, see KD stage III. Patient saw her electrical logging operator Dr. Barton yesterday for a routine checkup. At that time, her GFR was checked and was significantly lower than her baseline. Her electrical logging operator would like her admitted to the hospital for renal biopsy. Today, patient states she feels well. She denies nausea, vomiting, fevers, chills, chest pain, shortness of breath. She does report a one-month history of diarrhea in the morning. She states that she typically has 2 to 3 episodes per day, but has not had any diarrhea today. She denies any further problems. Past Med Surg Social Fam HX - Past Medical History Medical history: diabetes, hyperlipidemia, hypertension, renal disease Psychiatric history: anxiety, depression - Past Surgical History Surgical History: appendectomy, cholecystectomy, hysterectomy - Social History Smoking Status: Former smoker Smokeless Tobacco Status: No Alcohol use: none Drug use: none - Family History Mother Living Status: Internal Medicine - H&P: Meds Furosemide [Lasix] 20 mg PO DAILY 09/10/16 [History] Glimepiride [Amaryl] 8 mg PO DAILY 09/10/16 [History] Insulin Glargine,Hum.rec.anlog [Lantus Solostar] 70 unit SQ HS 09/10/16 [History ] Lisinopril [Zestril] 40 mg PO DAILY 09/10/16 [History] Metformin HCl [Fortamet] 1,000 mg PO BID 09/10/16 [History] Sertraline [Zoloft] 100 mg PO DAILY 09/10/16 [History] Aspirin [Lo-Dose Aspirin EC] 81 mg PO DAILY 12/08/16 [History] hydrALAZINE [HydrALAZINE] 100 mg PO Q8HR 12/08/16 [History] Allopurinol [Zyloprim 100 MG] 100 mg PO DAILY 09/15/17 [History] Atorvastatin Calcium [Lipitor] 20 mg PO HS 09/15/17 [History] Chlorthalidone [Chlorthalidone] 25 mg PO DAILY 09/15/17 [History] Cholecalciferol (D-3) [Vitamin D] 5,000 unit PO DAILY 09/15/17 [History] Liraglutide [Victoza 2-Isaak] 1.2 mg SQ DAILY 09/15/17 [History] Metoprolol Succinate 200 mg PO BID 09/15/17 [History] 3 Allergy/AdvReac Type Severity Reaction Status Date / Time No Known Allergies Allergy Verified 09/15/17 15:39 All Systems PM: A 10-system review of systems was performed and is negative for pertinent findings except as documented above in the HPI. - Constitutional Vitals: Temp Pulse Resp BP Pulse Ox 98.4 F 86 16 130/79 95 09/15/17 19:11 09/15/17 19:11 09/15/17 19:11 09/15/17 19:11 09/15/17 19:11 General appearance: Present: A&O X 3, pleasant, no acute distress, answers questions appropriately Exam: Morbidly obese, no acute distress. - Head Head exam: Present: atraumatic, normocephalic - Neck Neck exam general surgery: Present: supple, trachea midline - Respiratory Respiratory exam: Present: CTAB - Cardiovascular Cardiovascular exam: Present: RRR, +S1, +S3. Absent: systolic murmur - GI/Abdominal GI/Abdominal exam: Present: distended, hypoactive bowel sounds, soft. Absent: tenderness - Extremities Exam Additional comments: Mild bilateral lower extremity edema. - Neurological Exam Neurological exam: Present: alert, oriented X3, no focal deficits - Skin Skin exam: Present: intact Internal Med - H&P Results - Labs CBC & Chem 7: 09/15/17 14:13 09/15/17 14:13 - Assessment and plan (1) Renal failure (ARF), acute on chronic Current Visit: Yes Status: Acute Assessment and plan: Patient sees Dr. Barton as outpatient. She has CKD stage III with worsening renal function that is Joan versus progression of her CKD. She will be admitted for kidney biopsy tomorrow. Chest x-ray unremarkable. Plan: diabetic diet now, NPO after midnight. Consult to nephrology-Joan workup in progress. Gentle fluid hydration will hold lisinopril, Lasix consult interventional radiology for kidney biopsy tomorrow PRN hydralazine recheck potassium and give kayexalate if needed Qualifiers: Acute renal failure type: unspecified Chronic kidney disease stage: stage 3 (moderate) Qualified Code(s): N17.9 - Acute kidney failure, unspecified; N18.3 - Chronic kidney disease, stage 3 (moderate) (2) Hyperkalemia Current Visit: Yes Status: Acute Assessment and plan: Patient given 10 units insulin in the emergency department. Will recheck potassium now, is still high will give kayexalate (3) CKD (chronic kidney disease) Current Visit: Yes Status: Acute Qualifiers: Chronic kidney disease stage: unspecified stage Qualified Code(s): N18.9 - Chronic kidney disease, unspecified (4) Morbid obesity Current Visit: No Status: Chronic (5) Diarrhea Current Visit: Yes Status: Acute Assessment and plan: Patient has history of diarrhea for about a month, she reports 2-3 episodes per day. She denies recent antibiotic use. Plan: will check C diff placed on contact precautions Qualifiers: Qualified Code(s): R19.7 - Diarrhea, unspecified (6) Insulin dependent diabetes mellitus Current Visit: Yes Status: Acute Assessment and plan: History of type II diabetes, patient takes insulin at home. Type attic diet, NPO after midnight, basil and medium dose sliding scale, q4H Accu checks (7) DVT prophylaxis Current Visit: Yes Status: Acute Assessment and plan: Heparin SQ - Time Spent With Patient Total time spent is greater than 50% in coordination of care (as documented) at patient's floor/unit and/or counseling patient: <Mo Pittman P - Last Filed: 09/15/17 21:07> Date of Encounter: 09/15/17 Internal Medicine - H&P: HPI History of present illness: Ms. Carlson is a 62 year old female All Systems PM: A 10-system review of systems was performed and is negative for pertinent findings except as documented above in the HPI. - Constitutional Vitals: Temp Pulse Resp BP Pulse Ox 98.4 F 86 16 130/79 95 09/15/17 19:11 09/15/17 19:11 09/15/17 19:11 09/15/17 19:11 09/15/17 19:11 Internal Med - H&P Results - Labs CBC & Chem 7: 09/15/17 14:13 09/15/17 14:13 - Attending Attestation I examined this patient and my medical decision-making was reviewed with the Resident Physician. I agree with the documented findings, disposition and treatment plan as described except to the extent set forth below. Multiple comorbid conditions. Evaluated by nephrology. This admission is for kidney biopsy. We will keep her nothing by mouth from midnight. - Assessment and plan (1) Morbid obesity Current Visit: No Status: Chronic (2) Diarrhea Current Visit: Yes Status: Acute Qualifiers: Qualified Code(s): R19.7 - Diarrhea, unspecified (3) Renal failure (ARF), acute on chronic Current Visit: Yes Status: Acute Qualifiers: Acute renal failure type: unspecified Chronic kidney disease stage: stage 3 (moderate) Qualified Code(s): N17.9 - Acute kidney failure, unspecified; N18.3 - Chronic kidney disease, stage 3 (moderate) (4) Hyperkalemia Current Visit: Yes Status: Acute (5) Insulin dependent diabetes mellitus Current Visit: Yes Status: Acute (6) CKD (chronic kidney disease) Current Visit: Yes Status: Acute Qualifiers: Chronic kidney disease stage: unspecified stage Qualified Code(s): N18.9 - Chronic kidney disease, unspecified (7) DVT prophylaxis Current Visit: Yes Status: Acute - Time Spent With Patient Total time spent is greater than 50% in coordination of care (as documented) at patient's floor/unit and/or counseling patient:
[2017-09-15] MEDS ORDERED: Naloxone 0.4 MG/ML INJ IVP PRN (20:45)
[2017-09-15] MEDS ORDERED: Dextrose Gel 15 GM/37.5 ML TUBE PO PRN ×2 (20:49)
[2017-09-15] MEDS ORDERED: *HR* Dextrose 50 % in Water (Syg) 50 ML SYRINGE IVP PRN (20:49)
[2017-09-15] MEDS ORDERED: D5% in Water 1,000 ML IVC PRN (20:49)
[2017-09-15] MEDS ORDERED: Insulin LISPRO 300 UNITS/3 ML VIAL SQ SCH (21:00)
[2017-09-15] MEDS: Metoprolol XL (24 HR) Succ 50 MG TAB.ER.24H PO SCH (22:02)
[2017-09-15] MEDS: *HR* Heparin 5,000 UNIT/ML VIAL SQ SCH (22:02)
[2017-09-15] MEDS: Insulin DETEMIR 100 UNIT/ML X5UNITS SQ SCH (22:04)
[2017-09-15 22:20] LABS: Calcium 10.1 mg/dL (8.6-10.3); Potassium 4.7 mEq/L (3.5-5.1)
[2017-09-16] MEDS ORDERED: hydrALAZINE 25 MG TABLET PO SCH
[2017-09-16 04:26] LABS: Basophils % 0.4 %; Eosinophils # 0.2 K/mcL (0.0-0.6); Eosinophils % 1.6 %; Hematocrit 37.4 % (35.3-44.9); Immature Granulocytes % 0.9 % (0-4); Lymphocytes # 2.2 K/mcL (0.6-4.6); Lymphocytes % 23.4 %; Mean Corpuscular HGB Conc 32.1 g/dL (31.6-35.5); Mean Platelet Volume 11.3 fL (9.4-12.4); Monocytes # 0.8 K/mcL (0.0-1.3); Neutrophils # 6.3 K/mcL (1.6-8.9); Platelet Count 190 K/mcL (140-400); Red Blood Count 4.45 M/mcL (3.82-4.97); Red Cell Distribution Width 14.6 % (11.5-14.5); Segmented Neutrophils % 65.7 %
[2017-09-16 04:52] LABS: Calcium 9.9 mg/dL (8.6-10.3); Phosphorous 3.6 mg/dL (2.7-4.5); Potassium 4.4 mEq/L (3.5-5.1)
[2017-09-16] MEDS: *HR* Heparin 5,000 UNIT/ML VIAL SQ SCH ×2 (05:37→16:20)
[2017-09-16] MEDS ORDERED: Insulin LISPRO 300 UNITS/3 ML VIAL SQ SCH (07:30)
[2017-09-16] MEDS ORDERED: *HR* Midazolam HCl 2 MG/2 ML VIAL IVP ONE ×2 (08:15→13:44)
[2017-09-16] MEDS ORDERED: *HR* FentaNYL (PF) 100 MCG/2 ML VIAL IVP ONE ×2 (08:15→13:44)
[2017-09-16] MEDS ORDERED: 0.9 % Sodium Chloride 500 ML ONE (08:31)
[2017-09-16] MEDS ORDERED: Aspirin Enteric Coated 81 MG Tablet PO SCH (09:00)
--- NOTE | 2017-09-16 09:15 | Pre-Sedation Evaluation ---
Pre-sedation evaluation - Pre-sedation checklist Date of procedure: 09/16/17 Procedure: renal biopsy Recent Vitals: Last Vital Signs Temp 97.7 F 09/16/17 07:27 Pulse 78 09/16/17 09:08 Resp 10 09/16/17 09:08 BP 130/78 09/16/17 09:08 Pulse Ox 95 09/16/17 09:08 H&P (including ROS) documented in medical record: Yes Previous reaction to sedatives/anesthetics: No Dietary Status: NPO after Midnight ASA Classification *see protocol: CLASS II-Mild systemic disease Plan of Care: Pt appropriate candidate for procedure/moderate/conscious sedation , Risks/benefits of procedure/sedation discussed w/ patient/family
--- NOTE | 2017-09-16 09:16 | IR Procedure Note ---
Date of procedure: 09/16/17 Consent Obtained: Written consent Timeout: Correct patient and procedure verified, Time out performed, Skin prep completed Local anesthetic: Lidocaine 1% Indications: ARF Procedure Performed: Renal biopsy Was there an tourist information assistant present: No Results/Findings: Left kidney biopsy Estimated blood loss (cc): 0 Complications: None; Tolerated procedure well Post Procedure Treatment Plan: Monitor on floor Specimen: To path
[2017-09-16] MEDS: Liraglutide [Victoza 2-Pak] 1.2 MG SQ SCH (10:04)
--- NOTE | 2017-09-16 10:04 | Nephrology Progress Note ---
Date of Encounter: 09/16/17 Time of Encounter: 10:01 - Assessment and Plan (1) IAN (acute kidney injury) Current Visit: Yes Status: Acute IAN vs ATN. Urine NA is 64. Scr 3.09 and GFR 15 both improved from yesterday. Continue to avoid renaltoxins and renal dose all medications. Cdiff negative. Pt is still nauseated without emesis. Will consult GI for possible scope. (2) Nausea & vomiting Current Visit: Yes Status: Acute Still nauseated, no vomiting, see above. Qualifiers: Qualified Code(s): R11.2 - Nausea with vomiting, unspecified (3) Diarrhea Current Visit: Yes Status: Acute Cdiff (-). Qualifiers: Diarrhea type: unspecified type Qualified Code(s): R19.7 - Diarrhea, unspecified Subjective Principal diagnosis: Worsening Renal Function Interval history: Pt seen and examined in room. Objective - Vital Signs Vital signs: Vital Signs Temp Pulse Resp BP Pulse Ox 09/16/17 09:08 78 10 130/78 95 09/16/17 09:03 79 97 121/91 09/16/17 09:02 79 16 148/78 97 09/16/17 08:50 85 18 165/78 09/16/17 07:27 97.7 F 80 18 129/83 95 09/16/17 03:42 98.1 F 80 18 114/73 96 09/16/17 00:33 97.6 F 80 16 115/76 96 09/15/17 19:11 98.4 F 86 16 130/79 95 Intake and Output 09/15/17 09/16/17 09/16/17 23:59 07:59 15:59 Intake Total 0 / 0 Balance 0 / 0 Intake: Oral 0 / 0 Other: Meal Breakfast Percent of Meal Consumed 0% # Voids 1 Weight 135.2 kg Blood Glucose* 205 270 Patient Weight 09/16/17 23:59 Weight 135.2 kg - General Appearance General appearance: Present: well-developed, well-nourished, obese EENT: Present: ATNC, hearing intact, vision intact Neck: Present: supple Respiratory: Present: clear Cardiology: Present: no edema, normal S1, normal S2 Gastrointestinal: Present: normoactive bowel sounds, no tenderness, no guarding Integumentary: Present: no rash, warm and dry Neurologic: Present: alert and oriented x3 Psychiatric: Present: mood/affect appropriate, cooperative - Lab 09/16/17 04:13 09/16/17 04:13 Most recent lab results Calcium 9.9 mg/dL (8.6-10.3) 09/16/17 04:13 Phosphorus 3.6 mg/dL (2.7-4.5) 09/16/17 04:13 Magnesium 1.9 mg/dL (1.6-2.6) 09/16/17 04:13 Urine Creatinine 87 mg/dL 09/15/17 22:00 Urine Sodium 64.7 mEq/L 09/15/17 22:00 Urine Total Protein 21 mg/dL (1-14) H 09/15/17 22:00 Consult Discharge Plan - Plan Referrals: Yoanna Fierro DO [Primary Care Provider] -
[2017-09-16] MEDS: Metoprolol XL (24 HR) Succ 50 MG TAB.ER.24H PO SCH ×2 (10:06→21:04)
[2017-09-16] MEDS: Insulin LISPRO 300 UNITS/3 ML VIAL SQ SCH ×5 (10:07→21:06)
[2017-09-16] MEDS: hydrALAZINE 25 MG TABLET PO SCH ×3 (10:07→21:04)
[2017-09-16] MEDS: Cholecalciferol (D-3) 1,000 UNIT TABLET PO SCH (10:14)
--- NOTE | 2017-09-16 12:02 | Gastroenterology Consult Note ---
<Carlos Manuel Pritchett - Last Filed: 09/16/17 11:58> Date of Encounter: 09/16/17 Time of Encounter: 10:40 - Assessment and plan (1) Nausea & vomiting Current Visit: Yes Status: Acute Assessment and plan: Occurs only in the AM. Plan for EGD today to r/o esophagitis, gastritis, duodenitis, PUD, MW tear, or AVM. If unable to complete EGD today, will plan for Tuesday if patient is still admitted. Recommend PRN antiemetic, consider PPI as well. Qualifiers: Qualified Code(s): R11.2 - Nausea with vomiting, unspecified (2) Diarrhea Current Visit: Yes Status: Acute Assessment and plan: Start daily fiber supplement. C diff was negative. Check GI panel and fecal calprotectin. Consider colonoscopy to rule out microscopic colitis. Qualifiers: Diarrhea type: unspecified type Qualified Code(s): R19.7 - Diarrhea, unspecified (3) Morbid obesity Current Visit: No Status: Chronic - Time Spent With Patient Total time spent is greater than 50% in coordination of care (as documented) at patient's floor/unit and/or counseling patient: GI History of Present Illness - Data of Consult Patient: new to practice Consult date: 09/16/17 Requesting Physician: Dino Valdez CNP - Consult Narrative Reason for consult: Nausea, vomiting, diarrhea History of present illness: Ms. 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 We were consulted to evaluate her nausea, vomiting, and diarrhea. She states she has been having 2-3 episodes of watery diarrhea every morning for the past month. She also reports 2-3 episodes of nausea and vomiting every morning for the past month. She denies hematemesis, coffee-ground emesis, melena, or hematochezia. She denies fever, chills, chest pain, abdominal pain. C diff was negative. Procedures: Colonoscopy 07/30/2014 Dr. Mcgowan: Diverticulosis, one hyperplastic polyp, two tubular adenomas. NSAIDs: ASA Anticoagualtion: None Past Med Surg Social Fam HX - Past Medical History Medical history: diabetes, hyperlipidemia, hypertension, renal disease Psychiatric history: anxiety, depression - Past Surgical History Surgical History: appendectomy, cholecystectomy, hysterectomy - Social History Smoking Status: Former smoker Smokeless Tobacco Status: No Alcohol use: none Drug use: none - Family History Mother Living Status: - Gastrointestinal Gastrointestinal: Present: as per HPI - Constitutional Constitutional: as per HPI - EENT Eyes: as per HPI Ears: Present: as per HPI Nose, mouth and throat: Present: as per HPI - Cardiovascular Cardiovascular ROS: Present: as per HPI - Respiratory Respiratory IM: Present: as per HPI - Genitourinary Genitourinary: Absent: change in color, Urinary frequency - Neurological ROS Neurological GI: Present: as per HPI - Hematologic/Lymphatic Hematologic/Lymphatic pediatric: Present: as per HPI - Musculoskeletal Musculoskeletal ROS GI: Present: as per HPI - Integumentary Integumentary GI: Present: as per HPI - Psychiatric ROS Psychiatric GI: Present: as per HPI - Endocrine Endocrine IM: Present: as per HPI - Constitutional Vitals: Temp Pulse Resp BP Pulse Ox 97.5 F L 78 18 147/83 95 09/16/17 11:09 09/16/17 11:09 09/16/17 11:09 09/16/17 11:09 09/16/17 11:09 General appearance: Present: cooperative, A&O X 3, no acute distress, answers questions appropriately - Head Head exam: Present: atraumatic, normocephalic - Eye Eye exam: Present: normal appearance, sclera anicteric - ENT ENT exam: Present: mucous membranes dry - Neck Neck exam general surgery: Present: normal inspection, trachea midline - Respiratory Respiratory exam: Present: CTAB. Absent: rales, rhonchi, wheezes - Cardiovascular Cardiovascular exam: Present: RRR, +S1, +S2 - GI/Abdominal GI/Abdominal exam: Present: normal bowel sounds, soft, no peritoneal signs. Absent: distended, firm, guarding, tenderness Additional comments: Obese - Rectal Rectal exam: Present: deferred - Extremities Exam Extremities exam: Present: warm - Neurological Exam Neurological exam: Present: no focal deficits - Psychiatric Psychiatric exam: Present: normal affect, normal mood - Skin Skin exam: Present: dry, intact, normal color, warm Results - Labs CBC & Chem 7: 09/16/17 04:13 09/16/17 04:13 Labs: Last Result Calcium 9.9 mg/dL (8.6-10.3) 05/11/18 04:13 Entire Visit Hgb 12.0 g/dL (11.5-15.4) 09/16/17 04:13 Hct 37.4 % (35.3-44.9) 09/16/17 04:13 PT 10.4 Seconds (9.4-12.1) 09/15/17 14:13 - ABG ABG results: PT/INR, D-dimer PT 10.4 Seconds (9.4-12.1) 09/15/17 14:13 - Impressions Impressions Renal Biopsy CT 09/16/17 00:00 IMPRESSION: 1. CT guided core needle biopsy left kidney as discussed above. D/ / Lobito Chaves MD / Lobito Chaves MD Interpreting Provider: Lobito Chaves MD Consult Discharge Plan - Plan Referrals: Yoanna Fierro DO [Primary Care Provider] - <Ronit Sheffield - Last Filed: 09/16/17 13:44> Date of Encounter: 09/16/17 Time of Encounter: 13:00 - Time Spent With Patient Total time spent is greater than 50% in coordination of care (as documented) at patient's floor/unit and/or counseling patient: GI History of Present Illness - Data of Consult Requesting Physician: Dino Valdez CNP - Consult Narrative History of present illness: Ms. Carlson is a 62 year old female - Constitutional Vitals: Temp Pulse Resp BP Pulse Ox 97.5 F L 78 18 147/83 95 09/16/17 11:09 09/16/17 11:09 09/16/17 11:09 09/16/17 11:09 09/16/17 11:09 Results - Labs CBC & Chem 7: 09/16/17 04:13 09/16/17 04:13 Labs: Last Result Calcium 9.9 mg/dL (8.6-10.3) 09/16/17 04:13 Entire Visit Hgb 12.0 g/dL (11.5-15.4) 09/16/17 04:13 Hct 37.4 % (35.3-44.9) 09/16/17 04:13 PT 10.4 Seconds (9.4-12.1) 09/15/17 14:13 - ABG ABG results: PT/INR, D-dimer PT 10.4 Seconds (9.4-12.1) 09/15/17 14:13 - Impressions Impressions Renal Biopsy CT 09/16/17 00:00 IMPRESSION: 1. CT guided core needle biopsy left kidney as discussed above. D/ / Lobito Chaves MD / Lobito Chaves MD Interpreting Provider: Lobito Chaves MD - Attending Attestation I have personally performed a face to face evaluation on this patient. I have reviewed and agree with the care plan. History and Exam by me shows: Patient with nausea vomiting rule out gastric causes. Also patient is having diarrhea for the last 1 month could be multifactorial but rule out infectious etiology vs tonya colitius. Rec; EGD today if stool studies are negative then we will consider colonoscopy on Tuesday to rule out microscopic colitis
[2017-09-16] MEDS ORDERED: *HR* Midazolam HCl 5 MG/5 ML VIAL IVP ONE (13:41)
[2017-09-16] MEDS ORDERED: *HR* FentaNYL (PF) 100 MCG/2 ML VIAL ONE (13:42)
[2017-09-16] MEDS ORDERED: Simethicone 40 MG/0.6 ML MLS IR ONE (13:44)
[2017-09-16] MEDS ORDERED: Tetracaine/Benzocaine/Butamben 200MG/SPRAY (100SPY/BOT) MM ONE (13:44)
--- NOTE | 2017-09-16 13:44 | Pre-Sedation Evaluation ---
Pre-sedation evaluation - Pre-sedation checklist Date of procedure: 09/16/17 Procedure: renal biopsy Recent Vitals: Last Vital Signs Temp 97.5 F L 09/16/17 11:09 Pulse 78 09/16/17 11:09 Resp 18 09/16/17 11:09 BP 147/83 09/16/17 11:09 Pulse Ox 95 09/16/17 11:09 H&P (including ROS) documented in medical record: Yes Previous reaction to sedatives/anesthetics: No Dietary Status: NPO after Midnight ASA Classification *see protocol: CLASS III-Severe systemic disease Plan of Care: Pt appropriate candidate for procedure/moderate/conscious sedation , Risks/benefits of procedure/sedation discussed w/ patient/family
[2017-09-16] MEDS ORDERED: 0.9 % Sodium Chloride 1,000 ML IVC SCH (14:15)
[2017-09-16] MEDS ORDERED: levETIRAcetam 250 MG TABLET PO ONE (15:56)
--- NOTE | 2017-09-16 20:26 | Internal Med Progress Note ---
Date of Encounter: 09/16/17 Time of Encounter: 13:37 - Assessment and plan (1) Renal failure (ARF), acute on chronic Current Visit: Yes Status: Acute Assessment and plan: Patient sees Dr. Barton as outpatient. She has CKD stage III with worsening renal function that is IAN versus progression of her CKD. Nephrology consulted ; appreciate input. Scheduled for kidney biopsy today. Per nephrology's recommendation, will hydrate gently with IV NS and get 24-hour urine. Continue to hold lisinopril and lasix. Avoid nephrotoxins. Recheck BMP in AM. Qualifiers: Acute renal failure type: unspecified Chronic kidney disease stage: stage 3 (moderate) Qualified Code(s): N17.9 - Acute kidney failure, unspecified; N18.3 - Chronic kidney disease, stage 3 (moderate) (2) CKD (chronic kidney disease) Current Visit: Yes Status: Chronic Assessment and plan: Management as per above. Qualifiers: Chronic kidney disease stage: unspecified stage Qualified Code(s): N18.9 - Chronic kidney disease, unspecified (3) Diarrhea Current Visit: Yes Status: Acute Assessment and plan: Patient has history of nausea/vomiting/diarrhea for about 1 month. This seems to be a subacute issue. C. diff negative. Nephrology has consulted GI; appreciate their input. Scheduled for EGD today and colonoscopy on Tuesday if still here. Start famotidine BID, probiotic, and imodium PRN diarrhea. Qualifiers: Diarrhea type: unspecified type Qualified Code(s): R19.7 - Diarrhea, unspecified (4) Hyperkalemia Current Visit: Yes Status: Resolved Assessment and plan: Resolved. (5) Morbid obesity Current Visit: Yes Status: Chronic Assessment and plan: Counselled on lifestyle modifications. (6) Insulin dependent diabetes mellitus Current Visit: Yes Status: Chronic Assessment and plan: Continue accuchecks and SSI QID AC/HS. (7) DVT prophylaxis Current Visit: Yes Status: Acute Assessment and plan: Continue SQ heparin. - Time Spent With Patient Total time spent is greater than 50% in coordination of care (as documented) at patient's floor/unit and/or counseling patient: less than 15 minutes - Subjective Interval history: Patient had no acute events overnight. She states that she is doing better today. She does not voice any complaints at this time. When asked about N/V/D , she states it has been going on for 1 month. Nephrology consulted GI; appreciate both of their input. She denies chest pain, SOB, abdominal pain, fever, or chills. - Constitutional Vitals: Temp Pulse Resp BP Pulse Ox 98.6 F 84 16 114/74 94 09/16/17 19:27 09/16/17 19:27 09/16/17 19:27 09/16/17 19:27 09/16/17 19:27 General appearance: Present: cooperative, A&O X 3, pleasant, no acute distress, answers questions appropriately - Respiratory Respiratory exam: Present: CTAB. Absent: accessory muscle use, rales, rhonchi, wheezes Additional comments: Normal WOB - Cardiovascular Cardiovascular exam: Present: RRR, +S1, +S2. Absent: diastolic murmur, gallop, rubs, systolic murmur Additional comments: No BLE edema - GI/Abdominal GI/Abdominal exam: Present: normal bowel sounds, soft. Absent: distended, hepatomegaly, mass, splenomegaly, tenderness - Psychiatric Psychiatric exam: Present: normal affect, normal mood. Absent: agitated, anxious, depressed - Skin Skin exam: Present: dry, intact, warm. Absent: cyanosis, rash Internal Medicine: Result - Labs CBC & Chem 7: 09/16/17 04:13 09/16/17 04:13 Labs: Short CBC 09/16/17 Range/Units 04:13 WBC 9.6 (4.3-11.1) K/mcL Hgb 12.0 (11.5-15.4) g/dL Hct 37.4 (35.3-44.9) % Plt Count 190 (140-400) K/mcL Neutrophils # 6.3 (1.6-8.9) K/mcL BMP 09/15/17 09/16/17 21:26 04:13 Sodium 136 136 Potassium 4.7 4.4 Chloride 99 101 Carbon Dioxide 28 25 BUN 75 H 69 H Creatinine 3.43 H 3.09 H Glucose 218 H 189 H Calcium 10.1 9.9 - ABG Interpretation ABG results: PT/INR, D-dimer PT 10.4 Seconds (9.4-12.1) 09/15/17 14:13 - Impressions Impressions Renal Biopsy CT 09/16/17 00:00 IMPRESSION: 1. CT guided core needle biopsy left kidney as discussed above. D/ / Lobito Chaves MD / Lobito Chaves MD Interpreting Provider: Lobito Chaves MD Retroperitoneum Ultrasound 09/16/17 17:00 IMPRESSION: Unremarkable ultrasound of the kidneys and urinary bladder. D/ / Arash Melendez MD / Arash Melendez MD Interpreting Provider: Arash Melendez MD Consult Discharge Plan - Plan Referrals: Yoanna Fierro DO [Primary Care Provider] -
[2017-09-16] MEDS ORDERED: levETIRAcetam 250 MG TABLET PO SCH (21:00)
[2017-09-16] MEDS: Famotidine 20 MG TABLET PO SCH (21:03)
[2017-09-16] MEDS: Lactobacillus 1 EACH CAP.SPRINK PO SCH (21:04)
[2017-09-16] MEDS: Insulin DETEMIR 100 UNIT/ML X5UNITS SQ SCH (21:05)
[2017-09-16] MEDS: Nystatin POWDER 30 GM BOTTLE TP SCH (21:13)
[2017-09-17 05:21] LABS: Potassium 4.4 mEq/L (3.5-5.1)
[2017-09-17] MEDS: *HR* Heparin 5,000 UNIT/ML VIAL SQ SCH (06:20)
--- NOTE | 2017-09-17 07:59 | Electrocardiograph Report ---
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
[2017-09-17] MEDS: Lactobacillus 1 EACH CAP.SPRINK PO SCH (09:06)
[2017-09-17] MEDS: Metoprolol XL (24 HR) Succ 50 MG TAB.ER.24H PO SCH (09:06)
[2017-09-17] MEDS: Famotidine 20 MG TABLET PO SCH (09:06)
[2017-09-17] MEDS: Liraglutide [Victoza 2-Pak] 1.2 MG SQ SCH (09:07)
[2017-09-17] MEDS: Cholecalciferol (D-3) 1,000 UNIT TABLET PO SCH (09:07)
[2017-09-17] MEDS: hydrALAZINE 25 MG TABLET PO SCH ×2 (09:07→16:00)
[2017-09-17] MEDS: Nystatin POWDER 30 GM BOTTLE TP SCH (09:07)
[2017-09-17] MEDS: Insulin LISPRO 300 UNITS/3 ML VIAL SQ SCH ×2 (09:20→11:30)
--- NOTE | 2017-09-17 11:54 | Nephrology Progress Note ---
Date of Encounter: 09/17/17 Time of Encounter: 11:53 - Assessment and Plan (1) IAN (acute kidney injury) Current Visit: Yes Status: Acute Subjective Principal diagnosis: Worsening Renal Function Objective - Vital Signs Vital signs: Vital Signs Temp Pulse Resp BP Pulse Ox 09/17/17 10:33 98.7 F 79 20 130/77 95 09/17/17 09:10 95 09/17/17 07:17 98.1 F 79 20 149/83 95 09/17/17 03:51 98.9 F 80 16 157/88 94 09/16/17 23:26 98.5 F 82 16 130/77 98 09/16/17 19:27 98.6 F 84 16 114/74 94 09/16/17 15:51 97.4 F L 85 18 108/73 95 09/16/17 13:57 87 18 177/83 97 09/16/17 13:52 84 18 182/97 91 09/16/17 13:47 79 18 169/70 96 09/16/17 13:44 97.5 F L 74 18 171/79 95 Intake and Output 09/16/17 09/17/17 09/17/17 23:59 07:59 15:59 Intake Total 150 / 150 0 / 0 360 / 360 Output Total 300 / 300 300 / 300 Balance -150 / -150 -300 / -300 360 / 360 Intake: Oral 150 / 150 0 / 0 360 / 360 Output: Urine 300 / 300 300 / 300 Other: Meal Breakfast Percent of Meal Consumed 100% Stool Size Moderate Stool Consistency loose Stool Characteristics Normal for Patient Stool Color Brown # Voids 1 # Bowel Movements 1 Weight 130.997 kg Blood Glucose* 269 245 359 Patient Weight 09/17/17 23:59 Weight 130.997 kg - Lab 09/16/17 04:13 09/17/17 04:40 Most recent lab results Calcium 10.0 mg/dL (8.6-10.3) 09/17/17 04:40 Phosphorus 3.6 mg/dL (2.7-4.5) 09/16/17 04:13 Magnesium 1.9 mg/dL (1.6-2.6) 09/16/17 04:13 Urine Creatinine TNP 09/15/17 22:00 Ur Total Protein 24 Hr TNP 09/15/17 22:00 Urine Sodium TNP 09/15/17 22:00 Urine Total Protein TNP 09/15/17 22:00 Consult Discharge Plan - Plan Referrals: Yoanna Fierro DO [Primary Care Provider] -
--- NOTE | 2017-09-17 16:02 | Discharge Summary ---
- NOTES TO OUTPATIENT PROVIDER Notes to Outpatient Provider: Follow up with PCP in 2-3 days after discharge. Recheck BMP (IAN on CKD, hyperkalemia) at that time. Follow up with GI as directed for EGD biopsy pathology results and possible outpatient colonoscopy. Follow up with nephrology as directed. Pathology results of renal biospy can be followed up on at that time. Orders not resulted at time of discharge: Pending orders 09/15/17 14:10 Urine Microalbumin 24 Hr [UCHEM] Stat Urine Protein Creat Ratio 24Hr [UCHEM] Stat Urine Sodium 24 Hr [UCHEM] Stat 09/16/17 11:57 Calprotectin, Fecal Routine GI Panel,Stool [MOLMIC] Routine 09/16/17 14:03 Surgical Pathology [PTH] Routine 09/18/17 04:00 BMP [Basic Metabolic Panel] AM 0400 Date of Encounter: 09/17/17 Time of Encounter: 15:59 - Discharge Diagnosis (1) Renal failure (ARF), acute on chronic Priority: Primary Status: Resolved Qualifiers: Acute renal failure type: unspecified Chronic kidney disease stage: stage 3 (moderate) Qualified Code(s): N17.9 - Acute kidney failure, unspecified; N18.3 - Chronic kidney disease, stage 3 (moderate) (2) CKD (chronic kidney disease) Priority: Secondary Status: Chronic Qualifiers: Chronic kidney disease stage: unspecified stage Qualified Code(s): N18.9 - Chronic kidney disease, unspecified (3) Diarrhea Priority: Secondary Status: Chronic Qualifiers: Diarrhea type: unspecified type Qualified Code(s): R19.7 - Diarrhea, unspecified (4) Hyperkalemia Priority: Secondary Status: Resolved (5) Morbid obesity Priority: Secondary Status: Chronic (6) Insulin dependent diabetes mellitus Priority: Secondary Status: Chronic (7) DVT prophylaxis Priority: Secondary Status: Acute Hospital course: Ms. Carlson is a 62 year old female admitted for IAN on CKD; neprologist wanted patient admitted for renal biopsy. Patient was admitted to general medical floor with telemetry. Nephrology was consulted. Renal biopsy was performed, and pathology results will be followed up on by outpatient clinical research assistant. She was gently hydrated with IV NS and 24-hour urine measured. Creatinine improved from 3.43 to 2.38. GI was consulted by nephrology for a subacute history of nausea/vomiting/diarrhea, and they performed EGD. EGD was unremarkable except for mild mucosal changes in gastric body. Pathology results can be followed up by outpatient GI. They can also consider possible colonoscopy at that time. I started her on famotidine 20 mg PO BID, lactobacillus probiotic 1 tablet PO BID , and imodium PRN diarrhea. These improve her symptoms overnight. I personally spoke with clinical research assistant Dr. Barton today, who states that patient is ready for discharge. Patient has met maximum benefit of this hospitalization and will be discharged home in stable condition. Discharge discussed with: patient, family, nurse, dairy feed sales consultant ([employer] Dr. Barton) - Time Spent with Patient Total time spent providing and/or coordinating discharge services: Less than 30 minutes - Discharge Medications Prescriptions: Loperamide [Imodium] 2 mg PO Q4HR PRN #30 capsule PRN Reason: Diarrhea Famotidine [Pepcid] 20 mg PO BID 7 Days #14 tablet Lactobacillus [Culturelle] 1 each PO BID 7 Days #14 cap.sprink Nystatin POWDER [Nystop] 1 appl TP BID 9 Days #1 bottle Home Medications: Furosemide [Lasix] 20 mg PO DAILY 09/10/16 [History] Glimepiride [Amaryl] 8 mg PO DAILY 09/10/16 [History] Insulin Glargine,Hum.rec.anlog [Lantus Solostar] 70 unit SQ HS 09/10/16 [History ] Lisinopril [Zestril] 40 mg PO DAILY 09/10/16 [History] Metformin HCl [Fortamet] 1,000 mg PO BID 09/10/16 [History] Sertraline [Zoloft] 100 mg PO DAILY 09/10/16 [History] Aspirin [Lo-Dose Aspirin EC] 81 mg PO DAILY 12/08/16 [History] hydrALAZINE [HydrALAZINE] 100 mg PO Q8HR 12/08/16 [History] Allopurinol [Zyloprim 100 MG] 100 mg PO DAILY 09/15/17 [History] Atorvastatin Calcium [Lipitor] 20 mg PO HS 09/15/17 [History] Chlorthalidone 25 mg PO DAILY 09/15/17 [History] Cholecalciferol (D-3) [Vitamin D] 5,000 unit PO DAILY 09/15/17 [History] Liraglutide [Victoza 2-Isaak] 1.2 mg SQ DAILY 09/15/17 [History] Metoprolol Succinate 200 mg PO BID 09/15/17 [History] Famotidine [Pepcid] 20 mg PO BID 7 Days #14 tablet 09/17/17 [Rx] Lactobacillus [Culturelle] 1 each PO BID 7 Days #14 cap.sprink 09/17/17 [Rx] Loperamide [Imodium] 2 mg PO Q4HR PRN #30 capsule 09/17/17 [Rx] Nystatin POWDER [Nystop] 1 appl TP BID 9 Days #1 bottle 09/17/17 [Rx] Allergies/Adverse Reactions: 3 Allergy/AdvReac Type Severity Reaction Status Date / Time No Known Allergies Allergy Verified 09/15/17 15:39 Date of admission: 09/15/17 15:44 Primary care physician: Yoanna Fierro Consults: Nephrology 09/15/17 17:00 Consult to Interventional Radiology [CONS] Routine Consulting Provider: Radiology Interventional Cols Reason for Consult: Please evaluate for renal biopsy on Tuesday due to unexplained rapidly progressive IAN on CKD. Dr. Barton will be on-call. Thank you. Call Completed: No 09/16/17 09:11 Consult to Diabetes Education [CONS] Stat Comment: Reason for Consult: Diabetic Diet Education 09/16/17 10:06 Consult to Gastroenterology [CONS] Routine Consulting Provider: Gastroenterology Yenny Reason for Consult: n/v/d for 6 weeks at home. Cdiff negative. Time Notified: 10:08 Call Completed: Yes Discharging clinician: Preston Whyte Anticipated date of discharge: 09/17/17 - Constitutional Vitals: Temp Pulse Resp BP Pulse Ox 98.7 F 79 20 130/77 95 09/17/17 10:33 09/17/17 10:33 09/17/17 10:33 09/17/17 10:33 09/17/17 10:33 General appearance: Present: cooperative, A&O X 3, morbidly obese, pleasant, no acute distress, answers questions appropriately - Respiratory Respiratory exam: Present: CTAB. Absent: accessory muscle use, rales, rhonchi, wheezes Additional comments: Normal WOB - Cardiovascular Cardiovascular exam: Present: RRR, +S1, +S2. Absent: diastolic murmur, gallop, rubs, systolic murmur Additional comments: No BLE edema - GI/Abdominal GI/Abdominal exam: Present: normal bowel sounds, soft. Absent: distended, hepatomegaly, mass, splenomegaly, tenderness - Psychiatric Psychiatric exam: Present: normal affect, normal mood. Absent: agitated, anxious, depressed - Skin Skin exam: Present: dry, intact, warm. Absent: cyanosis, rash - Patient Status Disposition: Home, Self-Care Condition: Good Overall status at discharge: patient is progressing back to baseline - Discharge Instructions Follow Up With: Yoanna Fierro DO [Primary Care Provider] - Additional Instructions: Follow up with PCP in 2-3 days after discharge. Recheck BMP (IAN on CKD, hyperkalemia) at that time. Follow up with GI as directed for EGD biopsy pathology results and possible outpatient colonoscopy. Follow up with nephrology as directed. Pathology results of renal biospy can be followed up on at that time. - Diet and Activity Activity: resume usual activities as tolerated Diet: diabetic diet, low fat, low cholesterol, low salt diet, other (Cardiac Diet, Renal Diet)
[2017-09-17 16:43] VITALS: BP 147/88
[2017-09-18 06:10] LABS: Alpha 2 Globulin (PEP) 1.01 g/dL (0.48-1.05); Beta Globulin (PEP) 1.16 g/dL (0.48-1.10)
[2017-09-18 11:29] LABS: Total Volume 24 Hour,Urine 1.86 Liters (0.60-1.60)
[2017-09-18 12:36] LABS: Protein/Creatinine Ratio,Urine 0.3 mg/mg (0.00-0.20); Sodium, Urine 57.4 mEq/L
[2017-09-19 07:55] LABS: IFE Reflexed NOT DONE
[2017-09-19 07:57] LABS: ANA IgG by ELISA NONE DETECTED (None Detected)
== END 2017-09-17 17:14 | disposition home or self-care (01) ==
LOC: EMEROO 12:14 → 2ANU 12:14
PROVIDERS: ADMIT Nurse Practitioner Family; ATTEND Nurse Practitioner Family
PROC: ENDOEBX (2017-09-16 15:30)

== ENCOUNTER 2020-02-25 10:54 | Inpatient (IN) ==
[2020-02-25] MEDS ORDERED: Ondansetron 4 MG/2 ML VIAL IVP PRN (14:05)
[2020-02-25] MEDS ORDERED: *HR* Promethazine 25 MG/ML VIAL IVP PRN (14:05)
[2020-02-25] MEDS ORDERED: Naloxone 0.4 MG/ML INJ IVP PRN (14:05)
[2020-02-25] MEDS ORDERED: Perflutren Lipid Microsphere 1.3 ML in 0.9 % Sodium Chloride 8.7 ML IVP PRN (16:12)
[2020-02-25] MEDS ORDERED: Dextrose Gel 15 GM/37.5 ML TUBE PO PRN ×2 (16:18)
[2020-02-25] MEDS ORDERED: D5% in Water 1,000 ML IVC PRN (16:18)
[2020-02-25] MEDS ORDERED: *HR* Dextrose 50 % in Water (Vial) 50 ML VIAL IVP PRN (16:18)
[2020-02-25 16:23] LABS: ABG Base Excess 5 mEq/L (-2 to 3); ABG HCO3 32 mEq/L (21-27); ABG Oxygen Saturation 96 % (95-98); ABG PCO2 61 mmHg (35-45); ABG PH 7.34 pH Units (7.32-7.45); ABG PO2 88 mmHg (85-104); ABG TCO2 34 mEq/L (20-26)
[2020-02-25] MEDS: Nystatin POWDER 30 GM BOTTLE TP SCH ×2 (17:24→20:47)
[2020-02-25] MEDS: predniSONE 20 MG TABLET PO SCH (17:32)
[2020-02-25] MEDS: Insulin LISPRO 300 UNITS/3 ML VIAL SQ SCH ×2 (17:32→20:36)
[2020-02-25] MEDS: *HR* Heparin 5,000 UNIT/ML VIAL SQ SCH (17:32)
[2020-02-25 17:54] LABS: Basophils % 0.2 %; Monocytes % 8.9 %
[2020-02-25 17:55] LABS: Basophils # 0.1 K/mcL (0.0-0.2); Eosinophils # 0.1 K/mcL (0.0-0.6); Eosinophils % 0.2 %; Hematocrit 35.2 % (35.3-44.9); Hemoglobin 10.1 g/dL (11.5-15.4); Lymphocytes % 1.9 %; Mean Corpuscular HGB Conc 28.7 g/dL (31.6-35.5); Mean Corpuscular Hemoglobin 25.1 pg (28.0-33.3); Mean Corpuscular Volume 87.6 fL (83.0-100.0); Mean Platelet Volume 11.4 fL (9.4-12.4); Neutrophils # 29.5 K/mcL (1.6-8.9); Platelet Count 231 K/mcL (140-400); Red Blood Count 4.02 M/mcL (3.82-4.97); Red Cell Distribution Width 16.7 % (11.5-14.5); Segmented Neutrophils % 86.8 %
[2020-02-25 18:14] LABS: Albumin 3.4 g/dL (3.5-5.7); Albumin/Globulin Ratio 1.3 (1.1-2.2); Bilirubin,Total 0.5 mg/dL (0.3-1.0); Calcium 9.6 mg/dL (8.6-10.3); Globulin 2.7 g/dL (2.4-3.5); Phosphorous 4.8 mg/dL (2.7-4.5); Potassium 4.5 mEq/L (3.5-5.1); Total Protein 6.1 g/dL (6.4-8.9)
[2020-02-25 18:23] LABS: Lymphocytes # 0.7 K/mcL (0.6-4.6)
[2020-02-25 18:24] LABS: Dohle Bodies Present (Not Present)
[2020-02-25] MEDS: Ipratropium/Albuterol Neb 3 ML IH SCH ×2 (20:07→23:39)
[2020-02-25] MEDS: Furosemide 40 MG/4 ML VIAL IVP SCH (20:47)
[2020-02-26 01:01] LABS: Mean Corpuscular Hemoglobin 25.7 pg (28.0-33.3)
[2020-02-26 01:02] LABS: Hematocrit 32.5 % (35.3-44.9); Hemoglobin 9.5 g/dL (11.5-15.4); Mean Corpuscular HGB Conc 29.2 g/dL (31.6-35.5); Mean Corpuscular Volume 87.8 fL (83.0-100.0); Mean Platelet Volume 10.8 fL (9.4-12.4); Platelet Count 189 K/mcL (140-400); Red Cell Distribution Width 16.8 % (11.5-14.5); White Blood Count 29.2 K/mcL (4.3-11.1)
[2020-02-26 01:25] LABS: Calcium 9.5 mg/dL (8.6-10.3); Potassium 4.7 mEq/L (3.5-5.1)
[2020-02-26 01:35] LABS: Lymphocytes # 0.6 K/mcL (0.6-4.6); Neutrophils # 28.6 K/mcL (1.6-8.9); Platelet Estimate Normal (Normal)
[2020-02-26] MEDS: Ipratropium/Albuterol Neb 3 ML IH SCH ×6 (03:31→23:59)
[2020-02-26] MEDS: *HR* Heparin 5,000 UNIT/ML VIAL SQ SCH ×2 (06:02→17:49)
[2020-02-26] MEDS: cefTRIAXone 1,000 MG in Water for inj. (sterile) 10 ML IVP SCH (08:07)
[2020-02-26] MEDS: predniSONE 20 MG TABLET PO SCH (08:07)
[2020-02-26] MEDS: Furosemide 40 MG/4 ML VIAL IVP SCH ×2 (08:08→20:11)
[2020-02-26] MEDS: Insulin LISPRO 300 UNITS/3 ML VIAL SQ SCH ×4 (08:09→20:25)
[2020-02-26] MEDS: Nystatin POWDER 30 GM BOTTLE TP SCH ×3 (08:09→20:12)
[2020-02-26] MEDS ORDERED: Azithromycin 500 MG in 0.9 % Sodium Chloride 250 ML IVPB SCH (09:00)
[2020-02-27] MEDS: Ipratropium/Albuterol Neb 3 ML IH SCH ×2 (03:59→07:10)
[2020-02-27] MEDS ORDERED: *HR* Metoprolol 5 MG/5 ML VIAL IVP ONE ×2 (04:48→08:06)
[2020-02-27 05:07] LABS: Basophils % 0.1 %; Immature Granulocytes % 1.6 % (0-4); Lymphocytes # 1.2 K/mcL (0.6-4.6); Lymphocytes % 5.8 %; Mean Corpuscular Hemoglobin 25.6 pg (28.0-33.3); Mean Corpuscular Volume 88.1 fL (83.0-100.0); Mean Platelet Volume 10.7 fL (9.4-12.4); Monocytes # 1.4 K/mcL (0.0-1.3); Monocytes % 6.9 %; Neutrophils # 17.6 K/mcL (1.6-8.9); Platelet Count 214 K/mcL (140-400); Red Blood Count 3.52 M/mcL (3.82-4.97); Red Cell Distribution Width 16.9 % (11.5-14.5); Segmented Neutrophils % 85.6 %; White Blood Count 20.6 K/mcL (4.3-11.1)
[2020-02-27 05:21] LABS: Calcium 9.4 mg/dL (8.6-10.3); Potassium 4.3 mEq/L (3.5-5.1)
[2020-02-27] MEDS ORDERED: *HR* Metoprolol 5 MG/5 ML VIAL IVP PRN (05:59)
[2020-02-27] MEDS ORDERED: *HR* Heparin 5,000 UNIT/ML VIAL IVP ONE (06:00)
[2020-02-27] MEDS ORDERED: *HR* Heparin 5,000 UNIT/ML VIAL IVP PRN ×2 (06:00)
[2020-02-27] MEDS: Heparin 25,000UNIT/250ML 1/2NS 25,000 UNIT/250 ML IV.SOLN IVC SCH ×2 (06:20→18:45)
[2020-02-27 06:23] LABS: Mean Platelet Volume 10.8 fL (9.4-12.4); Red Cell Distribution Width 16.9 % (11.5-14.5)
[2020-02-27 06:24] LABS: Hematocrit 30.9 % (35.3-44.9); Mean Corpuscular HGB Conc 29.1 g/dL (31.6-35.5); Mean Corpuscular Hemoglobin 25.9 pg (28.0-33.3); Mean Corpuscular Volume 88.8 fL (83.0-100.0); Platelet Count 196 K/mcL (140-400); Red Blood Count 3.48 M/mcL (3.82-4.97); White Blood Count 20.1 K/mcL (4.3-11.1)
[2020-02-27 06:27] LABS: Heparin anti-factor XA UFH < 0.04 IU/mL (0.30-0.70); INR 1.3; Prothrombin Time 14.4 Seconds (9.4-12.1)
[2020-02-27] MEDS: Insulin LISPRO 300 UNITS/3 ML VIAL SQ SCH ×4 (07:36→20:39)
[2020-02-27] MEDS: Furosemide 40 MG/4 ML VIAL IVP SCH ×2 (07:51→20:33)
[2020-02-27] MEDS: lisinopriL 20 MG TABLET PO SCH (07:55)
[2020-02-27] MEDS: predniSONE 20 MG TABLET PO SCH (07:56)
[2020-02-27] MEDS: Metoprolol XL (24 HR) Succ 50 MG TAB.ER.24H PO SCH (07:56)
[2020-02-27] MEDS: Aspirin Enteric Coated 81 MG Tablet PO SCH (07:56)
[2020-02-27] MEDS: Nystatin POWDER 30 GM BOTTLE TP SCH ×3 (07:57→22:32)
[2020-02-27] MEDS: cefTRIAXone 1,000 MG in Water for inj. (sterile) 10 ML IVP SCH (07:57)
[2020-02-27] MEDS ORDERED: Amiodarone Premix 150 MG/100 ML BAG IVPB ONE (09:56)
[2020-02-27] MEDS ORDERED: Amiodarone Premix 360 MG/200 ML BAG IVC ONE (09:56)
[2020-02-27] MEDS: Ipratropium Neb 0.5 MG NEBULIZER IH SCH ×3 (11:48→20:39)
[2020-02-27] MEDS: Levalbuterol Neb 1.25 MG/3 ML IH SCH ×3 (11:48→20:39)
[2020-02-27] MEDS: Amiodarone Premix 360 MG/200 ML BAG IVC SCH (18:45)
[2020-02-28] MEDS: Amiodarone Premix 360 MG/200 ML BAG IVC SCH (04:15)
[2020-02-28] MEDS: Levalbuterol Neb 1.25 MG/3 ML IH SCH ×6 (04:28→20:02)
[2020-02-28] MEDS: Ipratropium Neb 0.5 MG NEBULIZER IH SCH ×6 (04:28→20:02)
[2020-02-28 04:37] LABS: Immature Granulocytes % 1.6 % (0-4); Mean Platelet Volume 11.5 fL (9.4-12.4); Nucleated Red Blood Cells 0.1 /100 WBC (0); Red Cell Distribution Width 17.1 % (11.5-14.5)
[2020-02-28 04:39] LABS: Basophils % 0.2 %; Hemoglobin 9.2 g/dL (11.5-15.4); Lymphocytes # 1.2 K/mcL (0.6-4.6); Lymphocytes % 5.9 %; Mean Corpuscular HGB Conc 27.9 g/dL (31.6-35.5); Mean Corpuscular Hemoglobin 24.9 pg (28.0-33.3); Mean Corpuscular Volume 89.2 fL (83.0-100.0); Monocytes # 1.4 K/mcL (0.0-1.3); Monocytes % 7.4 %; Neutrophils # 16.6 K/mcL (1.6-8.9); Platelet Count 233 K/mcL (140-400); Segmented Neutrophils % 84.9 %; White Blood Count 19.5 K/mcL (4.3-11.1)
[2020-02-28 04:58] LABS: Calcium 9.2 mg/dL (8.6-10.3); Potassium 4.7 mEq/L (3.5-5.1)
[2020-02-28 05:51] LABS: Anisocytosis 1+ (Not Present); Platelet Estimate Normal (Normal); Polychromasia 1+ (Not Present)
[2020-02-28] MEDS: Insulin LISPRO 300 UNITS/3 ML VIAL SQ SCH ×4 (07:50→20:43)
[2020-02-28] MEDS: Aspirin Enteric Coated 81 MG Tablet PO SCH (09:47)
[2020-02-28] MEDS: predniSONE 20 MG TABLET PO SCH (09:47)
[2020-02-28] MEDS: lisinopriL 20 MG TABLET PO SCH (09:48)
[2020-02-28] MEDS: Metoprolol XL (24 HR) Succ 50 MG TAB.ER.24H PO SCH (09:48)
[2020-02-28] MEDS: Furosemide 40 MG/4 ML VIAL IVP SCH ×2 (09:49→20:52)
[2020-02-28] MEDS: cefTRIAXone 1,000 MG in Water for inj. (sterile) 10 ML IVP SCH (09:51)
[2020-02-28] MEDS: Nystatin POWDER 30 GM BOTTLE TP SCH ×3 (09:52→20:58)
[2020-02-28] MEDS: Heparin 25,000UNIT/250ML 1/2NS 25,000 UNIT/250 ML IV.SOLN IVC SCH (11:42)
[2020-02-28] MEDS: cloNIDine HCL 0.1 MG TABLET PO SCH ×2 (16:55→20:51)
[2020-02-29] MEDS: Levalbuterol Neb 1.25 MG/3 ML IH SCH ×5 (00:13→16:16)
[2020-02-29] MEDS: Ipratropium Neb 0.5 MG NEBULIZER IH SCH ×6 (00:13→20:12)
[2020-02-29] MEDS: Heparin 25,000UNIT/250ML 1/2NS 25,000 UNIT/250 ML IV.SOLN IVC SCH (00:55)
[2020-02-29 04:19] LABS: Eosinophils % 0.1 %; Hemoglobin 8.9 g/dL (11.5-15.4); Mean Platelet Volume 11.1 fL (9.4-12.4); Red Cell Distribution Width 16.6 % (11.5-14.5)
[2020-02-29 04:21] LABS: Basophils # 0.1 K/mcL (0.0-0.2); Basophils % 0.5 %; Hematocrit 31.9 % (35.3-44.9); Immature Granulocytes % 4.2 % (0-4); Lymphocytes # 1.1 K/mcL (0.6-4.6); Lymphocytes % 8.6 %; Mean Corpuscular HGB Conc 27.9 g/dL (31.6-35.5); Mean Corpuscular Hemoglobin 25.1 pg (28.0-33.3); Mean Corpuscular Volume 90.1 fL (83.0-100.0); Monocytes # 1.2 K/mcL (0.0-1.3); Monocytes % 9.2 %; Neutrophils # 10.2 K/mcL (1.6-8.9); Nucleated Red Blood Cells 0.2 /100 WBC (0); Platelet Count 212 K/mcL (140-400); Red Blood Count 3.54 M/mcL (3.82-4.97); Segmented Neutrophils % 77.4 %; White Blood Count 13.2 K/mcL (4.3-11.1)
[2020-02-29 04:38] LABS: Calcium 9.6 mg/dL (8.6-10.3); Potassium 4.8 mEq/L (3.5-5.1)
[2020-02-29 04:42] LABS: Platelet Estimate Normal (Normal)
[2020-02-29] MEDS: Insulin LISPRO 300 UNITS/3 ML VIAL SQ SCH ×4 (08:36→21:14)
[2020-02-29] MEDS: Metoprolol XL (24 HR) Succ 50 MG TAB.ER.24H PO SCH (08:46)
[2020-02-29] MEDS: predniSONE 20 MG TABLET PO SCH (08:46)
[2020-02-29] MEDS: lisinopriL 20 MG TABLET PO SCH (08:47)
[2020-02-29] MEDS: cloNIDine HCL 0.1 MG TABLET PO SCH ×3 (08:47→20:47)
[2020-02-29] MEDS: cefTRIAXone 1,000 MG in Water for inj. (sterile) 10 ML IVP SCH (08:48)
[2020-02-29] MEDS: Furosemide 40 MG/4 ML VIAL IVP SCH ×2 (08:53→21:40)
[2020-02-29] MEDS: Aspirin Enteric Coated 81 MG Tablet PO SCH (08:53)
[2020-02-29] MEDS ORDERED: Metoprolol XL (24 HR) Succ 50 MG TAB.ER.24H PO SCH (09:00)
[2020-02-29] MEDS: Apixaban 5 MG TABLET PO SCH ×2 (11:40→20:48)
[2020-02-29] MEDS: Nystatin POWDER 30 GM BOTTLE TP SCH ×3 (11:41→20:58)
[2020-03-01] MEDS: Levalbuterol Neb 1.25 MG/3 ML IH SCH ×7 (00:37→23:27)
[2020-03-01] MEDS: Ipratropium Neb 0.5 MG NEBULIZER IH SCH ×7 (00:37→23:27)
[2020-03-01 02:56] LABS: Nucleated Red Blood Cells 0.5 /100 WBC (0); Red Cell Distribution Width 16.3 % (11.5-14.5)
[2020-03-01 02:57] LABS: Hemoglobin 9.4 g/dL (11.5-15.4); Lymphocytes # 0.9 K/mcL (0.6-4.6); Mean Corpuscular HGB Conc 27.6 g/dL (31.6-35.5); Mean Corpuscular Hemoglobin 24.7 pg (28.0-33.3); Mean Corpuscular Volume 89.5 fL (83.0-100.0); Mean Platelet Volume 10.9 fL (9.4-12.4); Platelet Count 217 K/mcL (140-400); White Blood Count 11.1 K/mcL (4.3-11.1)
[2020-03-01 03:11] LABS: Calcium 9.7 mg/dL (8.6-10.3); Potassium 4.9 mEq/L (3.5-5.1)
[2020-03-01 03:58] LABS: Monocytes # 0.7 K/mcL (0.0-1.3); Neutrophils # 9.6 K/mcL (1.6-8.9)
[2020-03-01 03:59] LABS: Platelet Estimate Normal (Normal)
[2020-03-01] MEDS: Insulin LISPRO 300 UNITS/3 ML VIAL SQ SCH ×4 (08:43→22:03)
[2020-03-01] MEDS: cefTRIAXone 1,000 MG in Water for inj. (sterile) 10 ML IVP SCH (08:43)
[2020-03-01] MEDS: lisinopriL 20 MG TABLET PO SCH (08:44)
[2020-03-01] MEDS: Apixaban 5 MG TABLET PO SCH ×2 (08:44→22:02)
[2020-03-01] MEDS: predniSONE 20 MG TABLET PO SCH (08:44)
[2020-03-01] MEDS: Aspirin Enteric Coated 81 MG Tablet PO SCH (08:44)
[2020-03-01] MEDS: Nystatin POWDER 30 GM BOTTLE TP SCH ×3 (08:44→22:03)
[2020-03-01] MEDS: cloNIDine HCL 0.1 MG TABLET PO SCH ×3 (08:44→22:02)
[2020-03-01] MEDS: Metoprolol XL (24 HR) Succ 50 MG TAB.ER.24H PO SCH (08:44)
[2020-03-01] MEDS: Furosemide 40 MG TABLET PO SCH ×2 (08:44→16:33)
[2020-03-02] MEDS: Ipratropium Neb 0.5 MG NEBULIZER IH SCH ×6 (03:32→23:00)
[2020-03-02] MEDS: Levalbuterol Neb 1.25 MG/3 ML IH SCH ×6 (03:32→23:00)
[2020-03-02 03:33] LABS: Hematocrit 32.3 % (35.3-44.9); Hemoglobin 9.3 g/dL (11.5-15.4); Mean Corpuscular HGB Conc 28.8 g/dL (31.6-35.5); Mean Corpuscular Hemoglobin 25.5 pg (28.0-33.3); Mean Corpuscular Volume 88.5 fL (83.0-100.0); Mean Platelet Volume 11.1 fL (9.4-12.4); Nucleated Red Blood Cells 0.4 /100 WBC (0); Platelet Count 209 K/mcL (140-400); Red Blood Count 3.65 M/mcL (3.82-4.97); Red Cell Distribution Width 16.2 % (11.5-14.5)
[2020-03-02 03:49] LABS: Anisocytosis 1+ (Not Present); Hypochromasia Present (Not Present); Lymphocytes # 1.8 K/mcL (0.6-4.6); Monocytes # 1.1 K/mcL (0.0-1.3); Neutrophils # 7.9 K/mcL (1.6-8.9); Platelet Estimate Normal (Normal)
[2020-03-02 03:53] LABS: Calcium 9.7 mg/dL (8.6-10.3); Potassium 4.2 mEq/L (3.5-5.1)
[2020-03-02] MEDS: Nystatin POWDER 30 GM BOTTLE TP SCH ×3 (08:00→21:56)
[2020-03-02] MEDS: Insulin LISPRO 300 UNITS/3 ML VIAL SQ SCH ×4 (08:00→21:57)
[2020-03-02] MEDS: Furosemide 40 MG TABLET PO SCH ×2 (08:02→16:41)
[2020-03-02] MEDS: Metoprolol XL (24 HR) Succ 50 MG TAB.ER.24H PO SCH (08:02)
[2020-03-02] MEDS: cefTRIAXone 1,000 MG in Water for inj. (sterile) 10 ML IVP SCH (08:02)
[2020-03-02] MEDS: Apixaban 5 MG TABLET PO SCH ×2 (08:03→21:55)
[2020-03-02] MEDS: Aspirin Enteric Coated 81 MG Tablet PO SCH (08:03)
[2020-03-02] MEDS: cloNIDine HCL 0.1 MG TABLET PO SCH ×3 (08:03→21:55)
[2020-03-02] MEDS: lisinopriL 20 MG TABLET PO SCH (08:03)
[2020-03-02 08:07] LABS: ABG Base Excess 16 mEq/L (-2 to 3); ABG HCO3 44 mEq/L (21-27); ABG Oxygen Saturation 92 % (95-98); ABG PCO2 71 mmHg (35-45); ABG PO2 69 mmHg (85-104); ABG TCO2 46 mEq/L (20-26)
[2020-03-02] MEDS ORDERED: acetaZOLAMIDE 250 MG TABLET PO ONE (12:20)
[2020-03-02 12:49] LABS: Calcium 9.8 mg/dL (8.6-10.3); Potassium 4.1 mEq/L (3.5-5.1)
[2020-03-03] MEDS: Ipratropium Neb 0.5 MG NEBULIZER IH SCH ×6 (03:38→23:56)
[2020-03-03] MEDS: Levalbuterol Neb 1.25 MG/3 ML IH SCH ×6 (03:38→23:56)
[2020-03-03 06:23] LABS: Hemoglobin 9.7 g/dL (11.5-15.4); Red Cell Distribution Width 16.9 % (11.5-14.5)
[2020-03-03 06:25] LABS: Hematocrit 34.2 % (35.3-44.9); Mean Corpuscular HGB Conc 28.4 g/dL (31.6-35.5); Mean Corpuscular Hemoglobin 25.3 pg (28.0-33.3); Mean Corpuscular Volume 89.1 fL (83.0-100.0); Mean Platelet Volume 11.1 fL (9.4-12.4); Platelet Count 203 K/mcL (140-400); Red Blood Count 3.84 M/mcL (3.82-4.97); White Blood Count 10.1 K/mcL (4.3-11.1)
[2020-03-03 06:43] LABS: Calcium 9.8 mg/dL (8.6-10.3)
[2020-03-03] MEDS: Metoprolol XL (24 HR) Succ 50 MG TAB.ER.24H PO SCH (08:55)
[2020-03-03] MEDS: Apixaban 5 MG TABLET PO SCH ×2 (08:55→21:02)
[2020-03-03] MEDS: Aspirin Enteric Coated 81 MG Tablet PO SCH (08:55)
[2020-03-03] MEDS: Furosemide 40 MG TABLET PO SCH ×2 (08:55→17:27)
[2020-03-03] MEDS: cloNIDine HCL 0.1 MG TABLET PO SCH ×3 (08:55→21:03)
[2020-03-03] MEDS: lisinopriL 20 MG TABLET PO SCH (08:55)
[2020-03-03] MEDS: Insulin LISPRO 300 UNITS/3 ML VIAL SQ SCH ×4 (08:56→21:03)
[2020-03-03] MEDS: Nystatin POWDER 30 GM BOTTLE TP SCH ×3 (08:56→21:02)
[2020-03-03] MEDS: cefTRIAXone 1,000 MG in Water for inj. (sterile) 10 ML IVP SCH (09:07)
[2020-03-03] MEDS: allopurinoL 100 MG TABLET PO SCH (12:08)
[2020-03-04] MEDS: Levalbuterol Neb 1.25 MG/3 ML IH SCH ×5 (03:55→19:54)
[2020-03-04] MEDS: Ipratropium Neb 0.5 MG NEBULIZER IH SCH ×5 (03:55→19:54)
[2020-03-04 05:38] LABS: Hematocrit 35.9 % (35.3-44.9); Mean Corpuscular HGB Conc 27.9 g/dL (31.6-35.5); Mean Corpuscular Hemoglobin 24.4 pg (28.0-33.3); Mean Corpuscular Volume 87.8 fL (83.0-100.0); Mean Platelet Volume 11.5 fL (9.4-12.4); Platelet Count 214 K/mcL (140-400); Red Blood Count 4.09 M/mcL (3.82-4.97); Red Cell Distribution Width 17.1 % (11.5-14.5); White Blood Count 11.5 K/mcL (4.3-11.1)
[2020-03-04 06:01] LABS: Calcium 9.7 mg/dL (8.6-10.3); Potassium 4.1 mEq/L (3.5-5.1)
[2020-03-04] MEDS: Aspirin Enteric Coated 81 MG Tablet PO SCH (08:16)
[2020-03-04] MEDS: allopurinoL 100 MG TABLET PO SCH (08:16)
[2020-03-04] MEDS: Apixaban 5 MG TABLET PO SCH ×2 (08:16→21:21)
[2020-03-04] MEDS: Furosemide 40 MG TABLET PO SCH ×2 (08:16→17:43)
[2020-03-04] MEDS: Insulin LISPRO 300 UNITS/3 ML VIAL SQ SCH ×4 (08:20→21:34)
[2020-03-04] MEDS: cloNIDine HCL 0.1 MG TABLET PO SCH ×3 (08:22→21:20)
[2020-03-04] MEDS: lisinopriL 20 MG TABLET PO SCH (08:23)
[2020-03-04] MEDS: Nystatin POWDER 30 GM BOTTLE TP SCH ×3 (08:25→21:21)
[2020-03-04] MEDS: Metoprolol XL (24 HR) Succ 50 MG TAB.ER.24H PO SCH (11:22)
[2020-03-05] MEDS: Ipratropium Neb 0.5 MG NEBULIZER IH SCH ×7 (00:08→23:21)
[2020-03-05] MEDS: Levalbuterol Neb 1.25 MG/3 ML IH SCH ×7 (00:08→23:21)
[2020-03-05 04:23] LABS: Hematocrit 35.6 % (35.3-44.9); Mean Platelet Volume 11.3 fL (9.4-12.4)
[2020-03-05 04:24] LABS: Hemoglobin 10.2 g/dL (11.5-15.4); Mean Corpuscular HGB Conc 28.7 g/dL (31.6-35.5); Mean Corpuscular Hemoglobin 25.6 pg (28.0-33.3); Mean Corpuscular Volume 89.4 fL (83.0-100.0); Platelet Count 199 K/mcL (140-400); Red Blood Count 3.98 M/mcL (3.82-4.97); White Blood Count 9.5 K/mcL (4.3-11.1)
[2020-03-05 04:44] LABS: Calcium 9.4 mg/dL (8.6-10.3); Potassium 4.2 mEq/L (3.5-5.1)
[2020-03-05] MEDS: Insulin LISPRO 300 UNITS/3 ML VIAL SQ SCH ×6 (08:00→20:05)
[2020-03-05] MEDS: Metoprolol XL (24 HR) Succ 50 MG TAB.ER.24H PO SCH (08:01)
[2020-03-05] MEDS: lisinopriL 20 MG TABLET PO SCH (08:01)
[2020-03-05] MEDS: Furosemide 40 MG TABLET PO SCH (08:01)
[2020-03-05] MEDS: allopurinoL 100 MG TABLET PO SCH (08:01)
[2020-03-05] MEDS: Apixaban 5 MG TABLET PO SCH ×2 (08:01→20:04)
[2020-03-05] MEDS: Aspirin Enteric Coated 81 MG Tablet PO SCH (08:01)
[2020-03-05] MEDS: cloNIDine HCL 0.1 MG TABLET PO SCH ×3 (08:01→20:04)
[2020-03-05] MEDS: Nystatin POWDER 30 GM BOTTLE TP SCH ×3 (08:02→20:04)
[2020-03-05 10:06] LABS: ABG Base Excess 11 mEq/L (-2 to 3); ABG HCO3 37 mEq/L (21-27); ABG Oxygen Saturation 77 % (95-98); ABG PCO2 62 mmHg (35-45); ABG PH 7.39 pH Units (7.32-7.45); ABG PO2 44 mmHg (85-104); ABG TCO2 39 mEq/L (20-26)
[2020-03-05 10:15] LABS: Estimated Average Glucose 174 mg/dl
[2020-03-05] MEDS ORDERED: Ipratropium/Albuterol Neb 3 ML IH SCH (13:15)
[2020-03-05 18:55] LABS: Adenovirus Not Detected (Not Detect); Bordetella Pertussis Not Detected (Not Detect); Chlamydophila pneumoniae Not Detected (Not Detect); Coronavirus 229E Not Detected (Not Detect); Coronavirus HKU1 Not Detected (Not Detect); Coronavirus NL63 Not Detected (Not Detect); Coronavirus OC43 Not Detected (Not Detect); Human Metapneumovirus Not Detected (Not Detect); Human Rhinovirus/Enterovirus Not Detected (Not Detect); Influenza A Subtype 2009 H1 Not Detected (Not Detect); Influenza B Not Detected (Not Detect); Mycoplasma pneumoniae Not Detected (Not Detect); Parainfluenza Virus 1 Not Detected (Not Detect); Parainfluenza Virus 2 Not Detected (Not Detect); Parainfluenza Virus 3 Not Detected (Not Detect); Parainfluenza Virus 4 Not Detected (Not Detect); Respiratory Syncytial Virus Not Detected (Not Detect); SARS-CoV-2 Not Detected (Not Detect)
[2020-03-05] MEDS: Insulin DETEMIR 100 UNIT/ML X5UNITS SQ SCH (21:58)
[2020-03-06 01:28] LABS: Lymphocytes % 11.1 %
[2020-03-06 01:29] LABS: Basophils % 0.3 %; Eosinophils # 0.3 K/mcL (0.0-0.6); Eosinophils % 2.5 %; Hematocrit 32.5 % (35.3-44.9); Immature Granulocytes % 1.9 % (0-4); Lymphocytes # 1.2 K/mcL (0.6-4.6); Mean Corpuscular HGB Conc 27.7 g/dL (31.6-35.5); Mean Corpuscular Hemoglobin 24.7 pg (28.0-33.3); Mean Corpuscular Volume 89.3 fL (83.0-100.0); Mean Platelet Volume 11.5 fL (9.4-12.4); Monocytes # 0.9 K/mcL (0.0-1.3); Monocytes % 8.1 %; Neutrophils # 8.3 K/mcL (1.6-8.9); Platelet Count 203 K/mcL (140-400); Red Blood Count 3.64 M/mcL (3.82-4.97); Red Cell Distribution Width 17.2 % (11.5-14.5); Segmented Neutrophils % 76.1 %; White Blood Count 10.9 K/mcL (4.3-11.1)
[2020-03-06 01:47] LABS: Albumin 3.2 g/dL (3.5-5.7); Albumin/Globulin Ratio 1.2 (1.1-2.2); Bilirubin,Total 0.4 mg/dL (0.3-1.0); Globulin 2.6 g/dL (2.4-3.5); Magnesium 1.9 mg/dL (1.6-2.6); Potassium 4.1 mEq/L (3.5-5.1); Total Protein 5.8 g/dL (6.4-8.9)
[2020-03-06 02:42] LABS: Anisocytosis 1+ (Not Present); Hypochromasia Present (Not Present); Platelet Estimate Normal (Normal)
[2020-03-06] MEDS: Levalbuterol Neb 1.25 MG/3 ML IH SCH ×6 (04:08→23:41)
[2020-03-06] MEDS: Ipratropium Neb 0.5 MG NEBULIZER IH SCH ×6 (04:08→23:41)
[2020-03-06] MEDS: Insulin LISPRO 300 UNITS/3 ML VIAL SQ SCH ×7 (08:47→20:34)
[2020-03-06] MEDS: Apixaban 5 MG TABLET PO SCH ×2 (08:50→20:32)
[2020-03-06] MEDS: lisinopriL 20 MG TABLET PO SCH (08:50)
[2020-03-06] MEDS: Aspirin Enteric Coated 81 MG Tablet PO SCH (08:50)
[2020-03-06] MEDS: allopurinoL 100 MG TABLET PO SCH (08:50)
[2020-03-06] MEDS: Metoprolol XL (24 HR) Succ 50 MG TAB.ER.24H PO SCH (08:50)
[2020-03-06] MEDS: cloNIDine HCL 0.1 MG TABLET PO SCH ×3 (08:50→20:32)
[2020-03-06] MEDS: Nystatin POWDER 30 GM BOTTLE TP SCH ×3 (08:51→20:33)
[2020-03-06] MEDS ORDERED: Furosemide 40 MG TABLET PO SCH (09:00)
[2020-03-06] MEDS: predniSONE 20 MG TABLET PO SCH (16:20)
[2020-03-06] MEDS: Insulin DETEMIR 100 UNIT/ML X5UNITS SQ SCH (20:33)
[2020-03-07 01:20] LABS: Red Cell Distribution Width 17.2 % (11.5-14.5)
[2020-03-07 01:22] LABS: Hematocrit 32.7 % (35.3-44.9); Hemoglobin 9.1 g/dL (11.5-15.4); Mean Corpuscular HGB Conc 27.8 g/dL (31.6-35.5); Mean Corpuscular Hemoglobin 25.1 pg (28.0-33.3); Mean Corpuscular Volume 90.1 fL (83.0-100.0); Mean Platelet Volume 12.1 fL (9.4-12.4); Platelet Count 200 K/mcL (140-400); Red Blood Count 3.63 M/mcL (3.82-4.97); White Blood Count 8.8 K/mcL (4.3-11.1)
[2020-03-07 01:33] LABS: % Iron Saturation 12 % (15-50); Calcium 9.2 mg/dL (8.6-10.3); Iron 39 mcg/dL (50-170); Magnesium 2.1 mg/dL (1.6-2.6); Phosphorous 3.8 mg/dL (2.7-4.5); Potassium 5.1 mEq/L (3.5-5.1); Transferrin 226 mg/dL (203-362)
[2020-03-07 01:49] LABS: Ferritin 83 ng/mL (10-120)
[2020-03-07 01:54] LABS: Folate 9.1 ng/mL (3.0-16.0)
[2020-03-07] MEDS: Levalbuterol Neb 1.25 MG/3 ML IH SCH ×4 (04:30→15:24)
[2020-03-07] MEDS: Ipratropium Neb 0.5 MG NEBULIZER IH SCH ×4 (04:30→15:24)
[2020-03-07] MEDS: Insulin LISPRO 300 UNITS/3 ML VIAL SQ SCH ×4 (08:03→12:31)
[2020-03-07] MEDS: predniSONE 20 MG TABLET PO SCH (08:05)
[2020-03-07] MEDS: cloNIDine HCL 0.1 MG TABLET PO SCH (08:05)
[2020-03-07] MEDS: Metoprolol XL (24 HR) Succ 50 MG TAB.ER.24H PO SCH (08:05)
[2020-03-07] MEDS: Apixaban 5 MG TABLET PO SCH (08:06)
[2020-03-07] MEDS: Aspirin Enteric Coated 81 MG Tablet PO SCH (08:06)
[2020-03-07] MEDS: Nystatin POWDER 30 GM BOTTLE TP SCH (08:06)
[2020-03-07] MEDS: allopurinoL 100 MG TABLET PO SCH (08:07)
[2020-03-07] MEDS ORDERED: Iron Sucrose Complex 400 MG in 0.9 % Sodium Chloride 250 ML IVPB ONE (08:22)
[2020-03-07] MEDS ORDERED: Sennosides/Docusate Sodium TABLET PO PRN (13:59)
[2020-03-07] MEDS ORDERED: MOM Conc 10 ML UD.LIQ PO ONE (13:59)
[2020-03-07 15:49] VITALS: BP 145/86
== END 2020-03-07 16:35 | DRG 871 ==
LOC: 2NNU → SUATTDRO 13:12 → CDU 02-26 20:35 → 2NNU 02-27 16:17 → 2ANU 03-01 13:05
PROVIDERS: ADMIT Family Medicine; ATTEND Internal Medicine

== ENCOUNTER 2020-04-08 22:41 | Inpatient (IN) ==
[2020-04-09] MEDS ORDERED: Ondansetron 4 MG/2 ML VIAL IVP PRN (01:09)
[2020-04-09] MEDS ORDERED: *HR* OxyCODONE Immed Rel 5 MG TABLET PO PRN (01:09)
[2020-04-09] MEDS ORDERED: Acetaminophen 325 MG TABLET PO PRN (01:09)
[2020-04-09] MEDS ORDERED: Naloxone 0.4 MG/ML INJ IVP PRN (01:09)
[2020-04-09] MEDS ORDERED: Ipratropium/Albuterol Neb 3 ML IH PRN (02:25)
[2020-04-09] MEDS: Ipratropium/Albuterol Neb 3 ML IH SCH ×6 (03:19→23:13)
[2020-04-09 03:46] LABS: INR 1.3; Prothrombin Time 14.4 Seconds (9.4-12.1)
[2020-04-09 03:47] LABS: Albumin 3.4 g/dL (3.5-5.7); Albumin/Globulin Ratio 1.4 (1.1-2.2); Bilirubin,Total 0.5 mg/dL (0.3-1.0); Calcium 9.4 mg/dL (8.6-10.3); Globulin 2.4 g/dL (2.4-3.5); Magnesium 1.7 mg/dL (1.6-2.6); Phosphorous 4.2 mg/dL (2.7-4.5); Potassium 3.8 mEq/L (3.5-5.1); Total Protein 5.8 g/dL (6.4-8.9)
[2020-04-09 03:52] LABS: Basophils % 0.3 %; Eosinophils # 0.1 K/mcL (0.0-0.6); Eosinophils % 0.6 %; Hematocrit 29.9 % (35.3-44.9); Hemoglobin 8.3 g/dL (11.5-15.4); Immature Granulocytes % 1.6 % (0-4); Lymphocytes % 8.8 %; Mean Corpuscular HGB Conc 27.8 g/dL (31.6-35.5); Mean Corpuscular Hemoglobin 25.1 pg (28.0-33.3); Mean Corpuscular Volume 90.3 fL (83.0-100.0); Mean Platelet Volume 11.6 fL (9.4-12.4); Monocytes # 0.7 K/mcL (0.0-1.3); Monocytes % 6.5 %; Neutrophils # 9.4 K/mcL (1.6-8.9); Nucleated Red Blood Cells 0.3 /100 WBC (0); Platelet Count 202 K/mcL (140-400); Red Blood Count 3.31 M/mcL (3.82-4.97); Segmented Neutrophils % 82.2 %; White Blood Count 11.4 K/mcL (4.3-11.1)
[2020-04-09 04:23] LABS: Anisocytosis 1+ (Not Present); Platelet Estimate Normal (Normal)
[2020-04-09] MEDS ORDERED: D5% in Water 1,000 ML IVC PRN (05:59)
[2020-04-09] MEDS ORDERED: Dextrose Gel 15 GM/37.5 ML TUBE PO PRN ×2 (05:59)
[2020-04-09] MEDS ORDERED: *HR* Dextrose 50 % in Water (Vial) 50 ML VIAL IVP PRN (05:59)
[2020-04-09] MEDS: MethylPREDNISolone 40 MG/ML VIAL IVP SCH ×2 (06:19→16:46)
[2020-04-09] MEDS: Insulin LISPRO 300 UNITS/3 ML VIAL SQ SCH ×3 (07:05→16:47)
[2020-04-09] MEDS: Cefepime HCl 1,000 MG in Water for inj. (sterile) 10 ML IVP SCH ×2 (07:53→16:47)
[2020-04-09] MEDS: Vancomycin 2,000 MG/520 ML IV.SOLN IVPB SCH (07:53)
[2020-04-09] MEDS: allopurinoL 100 MG TABLET PO SCH (07:54)
[2020-04-09] MEDS: Aspirin Enteric Coated 81 MG Tablet PO SCH (07:54)
[2020-04-09] MEDS: Metoprolol XL (24 HR) Succ 50 MG TAB.ER.24H PO SCH (07:54)
[2020-04-09] MEDS: Furosemide 40 MG/4 ML VIAL IVP SCH ×2 (07:54→16:46)
[2020-04-09] MEDS: Cholecalciferol (D-3) 1,000 UNIT (25MCG) TABLET PO SCH (07:54)
[2020-04-09] MEDS: cloNIDine HCL 0.1 MG TABLET PO SCH ×3 (07:54→20:09)
[2020-04-09] MEDS: Nystatin POWDER 30 GM BOTTLE TP SCH ×3 (07:55→20:12)
[2020-04-09] MEDS: lisinopriL 10 MG TABLET PO SCH (13:03)
[2020-04-09] MEDS: *HR* Heparin 5,000 UNIT/ML VIAL SQ SCH ×2 (13:04→20:09)
[2020-04-09] MEDS ORDERED: hydrALAZINE 25 MG TABLET PO SCH (16:00)
[2020-04-09] MEDS: Insulin DETEMIR 100 UNIT/ML X5UNITS SQ SCH (20:09)
[2020-04-09 23:28] LABS: Adenovirus Not Detected (Not Detect); Bordetella Pertussis Not Detected (Not Detect); Chlamydophila pneumoniae Not Detected (Not Detect); Coronavirus 229E Not Detected (Not Detect); Coronavirus HKU1 Not Detected (Not Detect); Coronavirus NL63 Not Detected (Not Detect); Coronavirus OC43 Not Detected (Not Detect); Human Metapneumovirus Not Detected (Not Detect); Human Rhinovirus/Enterovirus Not Detected (Not Detect); Influenza A Subtype 2009 H1 Not Detected (Not Detect); Influenza B Not Detected (Not Detect); Mycoplasma pneumoniae Not Detected (Not Detect); Parainfluenza Virus 1 Not Detected (Not Detect); Parainfluenza Virus 2 Not Detected (Not Detect); Parainfluenza Virus 3 Not Detected (Not Detect); Parainfluenza Virus 4 Not Detected (Not Detect); Respiratory Syncytial Virus Not Detected (Not Detect); SARS-CoV-2 Not Detected (Not Detect)
[2020-04-10] MEDS: Cefepime HCl 1,000 MG in Water for inj. (sterile) 10 ML IVP SCH ×3 (00:33→15:58)
[2020-04-10] MEDS: Insulin LISPRO 300 UNITS/3 ML VIAL SQ SCH ×5 (00:56→19:52)
[2020-04-10 03:22] LABS: Basophils % 0.1 %; Hemoglobin 8.3 g/dL (11.5-15.4)
[2020-04-10 03:24] LABS: Hematocrit 28.6 % (35.3-44.9); Immature Granulocytes % 1.9 % (0-4); Lymphocytes # 0.5 K/mcL (0.6-4.6); Lymphocytes % 5.3 %; Mean Corpuscular Hemoglobin 25.9 pg (28.0-33.3); Mean Corpuscular Volume 89.4 fL (83.0-100.0); Mean Platelet Volume 10.7 fL (9.4-12.4); Monocytes # 0.4 K/mcL (0.0-1.3); Monocytes % 3.9 %; Neutrophils # 8.8 K/mcL (1.6-8.9); Platelet Count 186 K/mcL (140-400); Red Cell Distribution Width 17.9 % (11.5-14.5); Segmented Neutrophils % 88.8 %; White Blood Count 9.9 K/mcL (4.3-11.1)
[2020-04-10 03:42] LABS: Calcium 9.2 mg/dL (8.6-10.3); Potassium 4.2 mEq/L (3.5-5.1)
[2020-04-10] MEDS: Ipratropium/Albuterol Neb 3 ML IH SCH ×5 (03:49→20:23)
[2020-04-10 04:35] LABS: Hypochromasia Present (Not Present); Platelet Estimate Normal (Normal)
[2020-04-10] MEDS: *HR* Heparin 5,000 UNIT/ML VIAL SQ SCH ×3 (05:26→22:45)
[2020-04-10] MEDS: MethylPREDNISolone 40 MG/ML VIAL IVP SCH (05:26)
[2020-04-10] MEDS: Vancomycin 2,000 MG/520 ML IV.SOLN IVPB SCH (06:39)
[2020-04-10] MEDS: Furosemide 40 MG/4 ML VIAL IVP SCH ×2 (07:41→15:58)
[2020-04-10] MEDS: cloNIDine HCL 0.1 MG TABLET PO SCH ×3 (07:42→19:47)
[2020-04-10] MEDS: lisinopriL 10 MG TABLET PO SCH (07:42)
[2020-04-10] MEDS: allopurinoL 100 MG TABLET PO SCH (07:42)
[2020-04-10] MEDS: Cholecalciferol (D-3) 1,000 UNIT (25MCG) TABLET PO SCH (07:42)
[2020-04-10] MEDS: Metoprolol XL (24 HR) Succ 50 MG TAB.ER.24H PO SCH (07:42)
[2020-04-10] MEDS: Aspirin Enteric Coated 81 MG Tablet PO SCH (07:42)
[2020-04-10] MEDS: Nystatin POWDER 30 GM BOTTLE TP SCH ×3 (07:44→19:55)
[2020-04-10] MEDS ORDERED: lisinopriL 20 MG TABLET PO ONE (09:15)
[2020-04-10] MEDS ORDERED: Metoprolol XL (24 HR) Succ 50 MG TAB.ER.24H PO ONE (09:39)
[2020-04-10 10:10] LABS: Magnesium 1.7 mg/dL (1.6-2.6)
[2020-04-10] MEDS: Doxycycline 100 MG CAPSULE PO SCH (19:47)
[2020-04-10] MEDS: Insulin DETEMIR 100 UNIT/ML X5UNITS SQ SCH (19:51)
[2020-04-11] MEDS: Ipratropium/Albuterol Neb 3 ML IH SCH ×7 (00:02→23:31)
[2020-04-11] MEDS: cephALEXin 500 MG CAPSULE PO SCH ×5 (00:29→20:01)
[2020-04-11 04:49] LABS: Eosinophils % 0.1 %
[2020-04-11 04:51] LABS: Basophils % 0.1 %; Hematocrit 28.6 % (35.3-44.9); Hemoglobin 8.1 g/dL (11.5-15.4); Immature Granulocytes % 1.4 % (0-4); Lymphocytes # 1.1 K/mcL (0.6-4.6); Lymphocytes % 12.2 %; Mean Corpuscular HGB Conc 28.3 g/dL (31.6-35.5); Mean Corpuscular Hemoglobin 25.6 pg (28.0-33.3); Mean Corpuscular Volume 90.2 fL (83.0-100.0); Mean Platelet Volume 11.2 fL (9.4-12.4); Monocytes % 11.1 %; Neutrophils # 6.5 K/mcL (1.6-8.9); Platelet Count 179 K/mcL (140-400); Red Blood Count 3.17 M/mcL (3.82-4.97); Red Cell Distribution Width 17.6 % (11.5-14.5); Segmented Neutrophils % 75.1 %; White Blood Count 8.7 K/mcL (4.3-11.1)
[2020-04-11 05:05] LABS: Calcium 9.2 mg/dL (8.6-10.3); Potassium 3.7 mEq/L (3.5-5.1)
[2020-04-11 05:22] LABS: Anisocytosis 1+ (Not Present); Macrocytosis Present (Not Present); Platelet Estimate Normal (Normal)
[2020-04-11] MEDS: *HR* Heparin 5,000 UNIT/ML VIAL SQ SCH ×3 (05:36→23:17)
[2020-04-11] MEDS: Insulin LISPRO 300 UNITS/3 ML VIAL SQ SCH ×4 (08:08→20:56)
[2020-04-11] MEDS: lisinopriL 20 MG TABLET PO SCH (08:16)
[2020-04-11] MEDS: Aspirin Enteric Coated 81 MG Tablet PO SCH (08:16)
[2020-04-11] MEDS: cloNIDine HCL 0.1 MG TABLET PO SCH ×3 (08:16→20:01)
[2020-04-11] MEDS: allopurinoL 100 MG TABLET PO SCH (08:16)
[2020-04-11] MEDS: Doxycycline 100 MG CAPSULE PO SCH ×2 (08:16→20:03)
[2020-04-11] MEDS: Metoprolol XL (24 HR) Succ 50 MG TAB.ER.24H PO SCH (08:16)
[2020-04-11] MEDS: predniSONE 20 MG TABLET PO SCH (08:16)
[2020-04-11] MEDS: Cholecalciferol (D-3) 1,000 UNIT (25MCG) TABLET PO SCH (08:16)
[2020-04-11] MEDS: Nystatin POWDER 30 GM BOTTLE TP SCH ×3 (08:17→20:02)
[2020-04-11] MEDS ORDERED: hydrOXYzine pamoate 25 MG CAPSULE PO PRN (15:17)
[2020-04-11] MEDS: *HR* Labetalol 20 MG/4 ML SYRINGE IVP PRN (16:42)
[2020-04-11] MEDS: Insulin DETEMIR 100 UNIT/ML X5UNITS SQ SCH (20:56)
[2020-04-12 03:06] LABS: Basophils % 0.1 %; Mean Platelet Volume 11.3 fL (9.4-12.4); Monocytes % 9.6 %; Red Cell Distribution Width 17.2 % (11.5-14.5)
[2020-04-12 03:08] LABS: Hematocrit 30.6 % (35.3-44.9); Hemoglobin 8.6 g/dL (11.5-15.4); Immature Granulocytes % 1.1 % (0-4); Lymphocytes # 0.7 K/mcL (0.6-4.6); Lymphocytes % 9.6 %; Mean Corpuscular HGB Conc 28.1 g/dL (31.6-35.5); Mean Corpuscular Hemoglobin 25.1 pg (28.0-33.3); Mean Corpuscular Volume 89.2 fL (83.0-100.0); Monocytes # 0.7 K/mcL (0.0-1.3); Neutrophils # 5.9 K/mcL (1.6-8.9); Platelet Count 178 K/mcL (140-400); Red Blood Count 3.43 M/mcL (3.82-4.97); Segmented Neutrophils % 79.6 %; White Blood Count 7.4 K/mcL (4.3-11.1)
[2020-04-12 03:17] LABS: Anisocytosis 1+ (Not Present); Hypochromasia Present (Not Present); Platelet Estimate Normal (Normal)
[2020-04-12 03:22] LABS: Calcium 9.1 mg/dL (8.6-10.3); Potassium 4.3 mEq/L (3.5-5.1)
[2020-04-12] MEDS: Ipratropium/Albuterol Neb 3 ML IH SCH ×5 (03:31→20:49)
[2020-04-12] MEDS: *HR* Heparin 5,000 UNIT/ML VIAL SQ SCH ×3 (05:44→20:31)
[2020-04-12] MEDS: predniSONE 20 MG TABLET PO SCH (08:02)
[2020-04-12] MEDS: Doxycycline 100 MG CAPSULE PO SCH ×2 (08:02→20:34)
[2020-04-12] MEDS: Furosemide 40 MG/4 ML VIAL IVP SCH ×2 (08:02→17:05)
[2020-04-12] MEDS: cloNIDine HCL 0.1 MG TABLET PO SCH ×3 (08:02→20:34)
[2020-04-12] MEDS: Metoprolol XL (24 HR) Succ 50 MG TAB.ER.24H PO SCH (08:02)
[2020-04-12] MEDS: Aspirin Enteric Coated 81 MG Tablet PO SCH (08:02)
[2020-04-12] MEDS: allopurinoL 100 MG TABLET PO SCH (08:03)
[2020-04-12] MEDS: Cholecalciferol (D-3) 1,000 UNIT (25MCG) TABLET PO SCH (08:03)
[2020-04-12] MEDS: Insulin LISPRO 300 UNITS/3 ML VIAL SQ SCH ×4 (08:03→20:33)
[2020-04-12] MEDS: cephALEXin 500 MG CAPSULE PO SCH ×4 (08:03→20:34)
[2020-04-12] MEDS: lisinopriL 20 MG TABLET PO SCH (08:03)
[2020-04-12] MEDS: Nystatin POWDER 30 GM BOTTLE TP SCH ×3 (08:03→20:38)
[2020-04-12] MEDS: *HR* Labetalol 20 MG/4 ML SYRINGE IVP PRN ×3 (08:04→17:05)
[2020-04-12] MEDS: Insulin DETEMIR 100 UNIT/ML X5UNITS SQ SCH (20:45)
[2020-04-13] MEDS: Ipratropium/Albuterol Neb 3 ML IH SCH ×7 (00:25→23:32)
[2020-04-13] MEDS: *HR* Labetalol 20 MG/4 ML SYRINGE IVP PRN ×3 (00:27→16:21)
[2020-04-13 01:26] LABS: Basophils % 0.2 %; Eosinophils % 0.1 %; Hematocrit 30.7 % (35.3-44.9); Hemoglobin 8.9 g/dL (11.5-15.4); Lymphocytes % 11.9 %; Mean Corpuscular Hemoglobin 25.1 pg (28.0-33.3); Mean Corpuscular Volume 86.5 fL (83.0-100.0); Mean Platelet Volume 11.2 fL (9.4-12.4); Monocytes % 11.6 %; Neutrophils # 6.5 K/mcL (1.6-8.9); Platelet Count 192 K/mcL (140-400); Red Blood Count 3.55 M/mcL (3.82-4.97); Red Cell Distribution Width 17.1 % (11.5-14.5); Segmented Neutrophils % 75.2 %; White Blood Count 8.6 K/mcL (4.3-11.1)
[2020-04-13 01:37] LABS: Calcium 9.1 mg/dL (8.6-10.3)
[2020-04-13] MEDS: *HR* Heparin 5,000 UNIT/ML VIAL SQ SCH ×3 (06:02→20:15)
[2020-04-13] MEDS: Doxycycline 100 MG CAPSULE PO SCH ×2 (06:03→17:53)
[2020-04-13] MEDS: Metoprolol XL (24 HR) Succ 50 MG TAB.ER.24H PO SCH (10:47)
[2020-04-13] MEDS: cephALEXin 500 MG CAPSULE PO SCH ×4 (10:47→20:14)
[2020-04-13] MEDS: lisinopriL 20 MG TABLET PO SCH (10:47)
[2020-04-13] MEDS: Furosemide 40 MG TABLET PO SCH ×2 (10:47→16:21)
[2020-04-13] MEDS: Aspirin Enteric Coated 81 MG Tablet PO SCH (10:47)
[2020-04-13] MEDS: allopurinoL 100 MG TABLET PO SCH (10:47)
[2020-04-13] MEDS: Nystatin POWDER 30 GM BOTTLE TP SCH ×3 (10:48→20:16)
[2020-04-13] MEDS: cloNIDine HCL 0.1 MG TABLET PO SCH ×3 (10:48→20:14)
[2020-04-13] MEDS: Cholecalciferol (D-3) 1,000 UNIT (25MCG) TABLET PO SCH (10:48)
[2020-04-13] MEDS: Insulin LISPRO 300 UNITS/3 ML VIAL SQ SCH ×4 (10:48→20:17)
[2020-04-13] MEDS: predniSONE 20 MG TABLET PO SCH (10:49)
[2020-04-13] MEDS: Insulin DETEMIR 100 UNIT/ML X5UNITS SQ SCH (20:15)
[2020-04-14] MEDS: Ipratropium/Albuterol Neb 3 ML IH SCH ×6 (03:23→23:54)
[2020-04-14] MEDS: *HR* Heparin 5,000 UNIT/ML VIAL SQ SCH ×3 (06:10→19:56)
[2020-04-14] MEDS: Doxycycline 100 MG CAPSULE PO SCH ×2 (06:11→18:31)
[2020-04-14 07:29] LABS: Eosinophils % 0.1 %; Hemoglobin 9.2 g/dL (11.5-15.4)
[2020-04-14 07:31] LABS: Basophils % 0.1 %; Hematocrit 31.3 % (35.3-44.9); Immature Granulocytes % 1.3 % (0-4); Lymphocytes # 0.9 K/mcL (0.6-4.6); Lymphocytes % 12.4 %; Mean Corpuscular HGB Conc 29.4 g/dL (31.6-35.5); Mean Corpuscular Hemoglobin 25.8 pg (28.0-33.3); Mean Corpuscular Volume 87.9 fL (83.0-100.0); Mean Platelet Volume 11.6 fL (9.4-12.4); Monocytes # 0.8 K/mcL (0.0-1.3); Monocytes % 11.2 %; Neutrophils # 5.6 K/mcL (1.6-8.9); Platelet Count 173 K/mcL (140-400); Red Blood Count 3.56 M/mcL (3.82-4.97); Red Cell Distribution Width 17.1 % (11.5-14.5); Segmented Neutrophils % 74.9 %; White Blood Count 7.5 K/mcL (4.3-11.1)
[2020-04-14 07:35] LABS: Calcium 9.4 mg/dL (8.6-10.3); Potassium 4.4 mEq/L (3.5-5.1)
[2020-04-14] MEDS: Furosemide 40 MG TABLET PO SCH ×2 (08:19→15:10)
[2020-04-14] MEDS: cephALEXin 500 MG CAPSULE PO SCH ×4 (08:19→19:57)
[2020-04-14] MEDS: cloNIDine HCL 0.1 MG TABLET PO SCH ×3 (08:19→19:56)
[2020-04-14] MEDS: Aspirin Enteric Coated 81 MG Tablet PO SCH (08:19)
[2020-04-14] MEDS: lisinopriL 20 MG TABLET PO SCH (08:19)
[2020-04-14] MEDS: Cholecalciferol (D-3) 1,000 UNIT (25MCG) TABLET PO SCH (08:19)
[2020-04-14] MEDS: allopurinoL 100 MG TABLET PO SCH (08:19)
[2020-04-14] MEDS: Nystatin POWDER 30 GM BOTTLE TP SCH ×3 (08:20→19:58)
[2020-04-14] MEDS: Metoprolol XL (24 HR) Succ 50 MG TAB.ER.24H PO SCH (08:20)
[2020-04-14] MEDS: Insulin LISPRO 300 UNITS/3 ML VIAL SQ SCH ×4 (08:21→19:57)
[2020-04-14] MEDS ORDERED: Metoprolol XL (24 HR) Succ 50 MG TAB.ER.24H PO ONE (09:43)
[2020-04-14] MEDS ORDERED: Sennosides/Docusate Sodium TABLET PO PRN (11:34)
[2020-04-14] MEDS: Insulin DETEMIR 100 UNIT/ML X5UNITS SQ SCH (19:57)
[2020-04-15] MEDS: Ipratropium/Albuterol Neb 3 ML IH SCH ×6 (03:44→23:40)
[2020-04-15] MEDS: *HR* Heparin 5,000 UNIT/ML VIAL SQ SCH ×3 (05:10→20:14)
[2020-04-15 07:18] LABS: Calcium 9.8 mg/dL (8.6-10.3); Potassium 3.8 mEq/L (3.5-5.1)
[2020-04-15] MEDS: Insulin LISPRO 300 UNITS/3 ML VIAL SQ SCH ×4 (07:57→20:15)
[2020-04-15] MEDS: Metoprolol XL (24 HR) Succ 50 MG TAB.ER.24H PO SCH (09:33)
[2020-04-15] MEDS: Cholecalciferol (D-3) 1,000 UNIT (25MCG) TABLET PO SCH (09:33)
[2020-04-15] MEDS: Doxycycline 100 MG CAPSULE PO SCH ×2 (09:34→20:15)
[2020-04-15] MEDS: lisinopriL 20 MG TABLET PO SCH (09:34)
[2020-04-15] MEDS: Aspirin Enteric Coated 81 MG Tablet PO SCH (09:34)
[2020-04-15] MEDS: cloNIDine HCL 0.1 MG TABLET PO SCH ×3 (09:34→20:14)
[2020-04-15] MEDS: allopurinoL 100 MG TABLET PO SCH (09:34)
[2020-04-15] MEDS: cephALEXin 500 MG CAPSULE PO SCH ×4 (09:35→20:14)
[2020-04-15] MEDS: Nystatin POWDER 30 GM BOTTLE TP SCH ×3 (09:35→20:17)
[2020-04-15] MEDS: Furosemide 40 MG TABLET PO SCH (09:41)
[2020-04-15] MEDS: Insulin DETEMIR 100 UNIT/ML X5UNITS SQ SCH (20:17)
[2020-04-16 01:46] LABS: Calcium 9.1 mg/dL (8.6-10.3); Potassium 4.2 mEq/L (3.5-5.1)
[2020-04-16] MEDS: Ipratropium/Albuterol Neb 3 ML IH SCH ×3 (03:13→11:12)
[2020-04-16] MEDS: *HR* Heparin 5,000 UNIT/ML VIAL SQ SCH (06:18)
[2020-04-16] MEDS: Doxycycline 100 MG CAPSULE PO SCH (06:18)
[2020-04-16] MEDS: Aspirin Enteric Coated 81 MG Tablet PO SCH (07:52)
[2020-04-16] MEDS: Cholecalciferol (D-3) 1,000 UNIT (25MCG) TABLET PO SCH (07:52)
[2020-04-16] MEDS: Metoprolol XL (24 HR) Succ 50 MG TAB.ER.24H PO SCH (07:52)
[2020-04-16] MEDS: cloNIDine HCL 0.1 MG TABLET PO SCH (07:53)
[2020-04-16] MEDS: Insulin LISPRO 300 UNITS/3 ML VIAL SQ SCH ×2 (07:53→12:04)
[2020-04-16] MEDS: Nystatin POWDER 30 GM BOTTLE TP SCH (07:53)
[2020-04-16] MEDS: allopurinoL 100 MG TABLET PO SCH (07:53)
[2020-04-16] MEDS: lisinopriL 20 MG TABLET PO SCH (07:53)
[2020-04-16] MEDS: cephALEXin 500 MG CAPSULE PO SCH ×2 (07:53→12:03)
[2020-04-16 11:03] VITALS: BP 158/71
== END 2020-04-16 13:20 | disposition home or self-care (01) | DRG 291 ==
LOC: 2ANU → SUATTDRO 04-09 00:56
PROVIDERS: ADMIT Student in an Organized Health Care Education/Training Program; ATTEND Internal Medicine

== ENCOUNTER 2020-07-11 00:49 | Inpatient (IN) ==
[2020-07-11] MEDS ORDERED: *HR* HYDROcodone/Acet 5/325 mg TABLET PO PRN (05:06)
[2020-07-11] MEDS ORDERED: Naloxone 0.4 MG/ML INJ IVP PRN (05:06)
[2020-07-11] MEDS ORDERED: *HR* Promethazine 25 MG/ML VIAL IM PRN (05:06)
[2020-07-11] MEDS ORDERED: Ondansetron 4 MG/2 ML VIAL IVP PRN (05:06)
[2020-07-11] MEDS ORDERED: Ipratropium/Albuterol Neb 3 ML IH PRN (05:12)
[2020-07-11] MEDS ORDERED: Dextrose Gel 15 GM/37.5 ML TUBE PO PRN ×2 (05:19)
[2020-07-11] MEDS ORDERED: D5% in Water 1,000 ML IVC PRN (05:19)
[2020-07-11] MEDS ORDERED: *HR* Dextrose 50 % in Water (Vial) 50 ML VIAL IVP PRN (05:19)
[2020-07-11 05:46] LABS: ABG Base Excess 9 mEq/L (-2 to 3); ABG HCO3 38 mEq/L (21-27); ABG Oxygen Saturation 93 % (95-98); ABG PCO2 79 mmHg (35-45); ABG PH 7.29 pH Units (7.32-7.45); ABG PO2 81 mmHg (85-104); ABG TCO2 40 mEq/L (20-26); Blood Gas Pressure Support 8 cm H2O
[2020-07-11] MEDS ORDERED: *HR* Enoxaparin 30 MG/0.3 ML SYRINGE SQ SCH (06:00)
[2020-07-11] MEDS: Doxycycline 100 MG in 0.9 % Sodium Chloride Mini Bag 100 ML IVPB SCH ×2 (06:11→17:58)
[2020-07-11] MEDS: Insulin LISPRO 300 UNITS/3 ML VIAL SUBQ SCH ×3 (06:11→20:29)
[2020-07-11] MEDS: MethylPREDNISolone 40 MG/ML VIAL IVP SCH ×3 (06:11→20:28)
[2020-07-11 06:20] LABS: Hemoglobin 8.8 g/dL (11.5-15.4); Lymphocytes # 0.3 K/mcL (0.6-4.6); Lymphocytes % 5.1 %; Red Cell Distribution Width 15.6 % (11.5-14.5); White Blood Count 6.1 K/mcL (4.3-11.1)
[2020-07-11 06:22] LABS: Basophils % 0.3 %; Hematocrit 31.9 % (35.3-44.9); Immature Granulocytes % 1.6 % (0-4); Mean Corpuscular HGB Conc 27.6 g/dL (31.6-35.5); Mean Corpuscular Volume 94.4 fL (83.0-100.0); Mean Platelet Volume 11.8 fL (9.4-12.4); Monocytes # 0.1 K/mcL (0.0-1.3); Neutrophils # 5.6 K/mcL (1.6-8.9); Platelet Count 132 K/mcL (140-400); Red Blood Count 3.38 M/mcL (3.82-4.97)
[2020-07-11 06:29] LABS: INR 1.2; Prothrombin Time 13.7 Seconds (9.4-12.1)
[2020-07-11 06:57] LABS: Alanine Aminotransferase 14 Units/L (7-52); Albumin 3.4 g/dL (3.5-5.7); Albumin/Globulin Ratio 1.5 (1.1-2.2); Alkaline Phosphatase 185 Units/L (34-104); Aspartate Amino Transferase 11 Units/L (13-39); BUN/Creatinine Ratio 25 (6-26); Bilirubin,Total 0.3 mg/dL (0.3-1.0); Blood Urea Nitrogen 38 mg/dL (8-23); Calcium 9.8 mg/dL (8.6-10.3); Carbon Dioxide 36 mEq/L (23-29); Chloride 100 mEq/L (98-107); Globulin 2.3 g/dL (2.4-3.5); Glucose 173 mg/dL (70-105); Magnesium 1.8 mg/dL (1.6-2.6); Osmolality,Calculated 307 (280-300); Phosphorous 3.4 mg/dL (2.7-4.5); Potassium 5.5 mEq/L (3.5-5.1); Sodium 142 mEq/L (136-145); Total Protein 5.7 g/dL (6.4-8.9); Troponin I < 0.03 ng/mL (< 0.04); eGFR For African Americans 42 (> 60); eGFR For Non-African Americans 35 (> 60)
[2020-07-11] MEDS: Ipratropium/Albuterol Neb 3 ML IH SCH ×5 (07:41→23:43)
[2020-07-11] MEDS: Furosemide 40 MG/4 ML VIAL IVP SCH ×2 (07:41→16:34)
[2020-07-11] MEDS: Aspirin Enteric Coated 81 MG Tablet PO SCH (08:52)
[2020-07-11] MEDS: lisinopriL 20 MG TABLET PO SCH (08:52)
[2020-07-11] MEDS: cloNIDine HCL 0.1 MG TABLET PO SCH (20:27)
[2020-07-11] MEDS: Insulin DETEMIR 100 UNIT/ML X5UNITS SUBQ SCH (20:28)
[2020-07-11] MEDS: Nystatin POWDER 30 GM BOTTLE TP SCH (20:28)
[2020-07-11] MEDS: hydrALAZINE 25 MG TABLET PO SCH (20:28)
[2020-07-11] MEDS: Melatonin 3 MG TABLET PO PRN (20:36)
[2020-07-12] MEDS: Ipratropium/Albuterol Neb 3 ML IH SCH ×6 (04:10→23:09)
[2020-07-12] MEDS: Doxycycline 100 MG in 0.9 % Sodium Chloride Mini Bag 100 ML IVPB SCH ×2 (05:53→18:19)
[2020-07-12] MEDS: *HR* Enoxaparin 40 MG/0.4 ML SYRINGE SQ SCH (05:53)
[2020-07-12] MEDS: MethylPREDNISolone 40 MG/ML VIAL IVP SCH ×3 (05:53→21:25)
[2020-07-12 06:15] LABS: Basophils % 0.2 %; Red Cell Distribution Width 15.4 % (11.5-14.5)
[2020-07-12 06:17] LABS: Hematocrit 31.7 % (35.3-44.9); Hemoglobin 8.8 g/dL (11.5-15.4); Lymphocytes # 0.3 K/mcL (0.6-4.6); Lymphocytes % 6.6 %; Mean Corpuscular HGB Conc 27.8 g/dL (31.6-35.5); Mean Corpuscular Hemoglobin 26.3 pg (28.0-33.3); Mean Corpuscular Volume 94.6 fL (83.0-100.0); Mean Platelet Volume 11.9 fL (9.4-12.4); Monocytes # 0.5 K/mcL (0.0-1.3); Monocytes % 10.5 %; Platelet Count 138 K/mcL (140-400); Red Blood Count 3.35 M/mcL (3.82-4.97); Segmented Neutrophils % 81.7 %; White Blood Count 4.9 K/mcL (4.3-11.1)
[2020-07-12 06:37] LABS: Calcium 9.7 mg/dL (8.6-10.3); Potassium 5.3 mEq/L (3.5-5.1)
[2020-07-12 06:42] LABS: Hypochromasia Present (Not Present); Platelet Estimate Normal (Normal)
[2020-07-12] MEDS ORDERED: Haloperidol Lactate 5 MG/ML VIAL IVP ONE (07:33)
[2020-07-12] MEDS: Insulin LISPRO 300 UNITS/3 ML VIAL SUBQ SCH ×4 (08:09→21:34)
[2020-07-12] MEDS: Furosemide 40 MG/4 ML VIAL IVP SCH ×2 (08:18→18:19)
[2020-07-12] MEDS: hydrALAZINE 25 MG TABLET PO SCH ×3 (08:19→21:24)
[2020-07-12] MEDS: Metoprolol XL (24 HR) Succ 50 MG TAB.ER.24H PO SCH (08:19)
[2020-07-12] MEDS: cloNIDine HCL 0.1 MG TABLET PO SCH ×3 (08:19→21:24)
[2020-07-12] MEDS: lisinopriL 20 MG TABLET PO SCH (08:20)
[2020-07-12] MEDS: allopurinoL 100 MG TABLET PO SCH (08:26)
[2020-07-12] MEDS: Cholecalciferol (D-3) 1,000 UNIT (25MCG) TABLET PO SCH (08:26)
[2020-07-12] MEDS: Aspirin Enteric Coated 81 MG Tablet PO SCH (08:26)
[2020-07-12] MEDS: Nystatin POWDER 30 GM BOTTLE TP SCH ×2 (08:27→21:29)
[2020-07-12] MEDS ORDERED: acetaZOLAMIDE 500 MG in Water for inj. (sterile) 5 ML IVP ONE ×2 (09:00→10:15)
[2020-07-12] MEDS: Acetaminophen 325 MG TABLET PO PRN (21:23)
[2020-07-12] MEDS: Melatonin 3 MG TABLET PO PRN (21:24)
[2020-07-12] MEDS: Insulin DETEMIR 100 UNIT/ML X5UNITS SUBQ SCH (21:34)
[2020-07-13] MEDS ORDERED: Haloperidol Lactate 5 MG/ML VIAL IVP ONE (01:55)
[2020-07-13] MEDS: Dexmedetomidine HCl 400 MCG/100 ML MLS IVC SCH ×3 (03:13→20:35)
[2020-07-13] MEDS: Ipratropium/Albuterol Neb 3 ML IH SCH ×2 (04:18→08:15)
[2020-07-13] MEDS: *HR* Enoxaparin 40 MG/0.4 ML SYRINGE SQ SCH (06:20)
[2020-07-13] MEDS: Doxycycline 100 MG in 0.9 % Sodium Chloride Mini Bag 100 ML IVPB SCH ×2 (06:20→18:19)
[2020-07-13] MEDS: MethylPREDNISolone 40 MG/ML VIAL IVP SCH ×3 (06:20→20:39)
[2020-07-13] MEDS: Aspirin Enteric Coated 81 MG Tablet PO SCH (08:30)
[2020-07-13] MEDS: cloNIDine HCL 0.1 MG TABLET PO SCH ×3 (08:30→20:39)
[2020-07-13] MEDS: lisinopriL 20 MG TABLET PO SCH (08:31)
[2020-07-13] MEDS: hydrALAZINE 25 MG TABLET PO SCH ×3 (08:33→20:39)
[2020-07-13] MEDS: allopurinoL 100 MG TABLET PO SCH (08:33)
[2020-07-13] MEDS: Cholecalciferol (D-3) 1,000 UNIT (25MCG) TABLET PO SCH (08:33)
[2020-07-13] MEDS: Furosemide 40 MG/4 ML VIAL IVP SCH ×2 (08:34→18:21)
[2020-07-13] MEDS: Insulin LISPRO 300 UNITS/3 ML VIAL SUBQ SCH ×4 (08:41→20:32)
[2020-07-13] MEDS: Nystatin POWDER 30 GM BOTTLE TP SCH ×2 (08:42→20:39)
[2020-07-13 08:45] LABS: Hematocrit 31.2 % (35.3-44.9); Hemoglobin 8.9 g/dL (11.5-15.4); Immature Granulocytes % 0.8 % (0-4); Lymphocytes # 0.3 K/mcL (0.6-4.6); Lymphocytes % 5.7 %; Mean Corpuscular HGB Conc 28.5 g/dL (31.6-35.5); Mean Corpuscular Hemoglobin 25.9 pg (28.0-33.3); Mean Corpuscular Volume 90.7 fL (83.0-100.0); Mean Platelet Volume 11.8 fL (9.4-12.4); Monocytes # 0.4 K/mcL (0.0-1.3); Monocytes % 7.4 %; Neutrophils # 5.1 K/mcL (1.6-8.9); Platelet Count 134 K/mcL (140-400); Red Blood Count 3.44 M/mcL (3.82-4.97); Red Cell Distribution Width 15.6 % (11.5-14.5); Segmented Neutrophils % 86.1 %; White Blood Count 5.9 K/mcL (4.3-11.1)
[2020-07-13 09:15] LABS: Calcium 9.4 mg/dL (8.6-10.3); Potassium 4.6 mEq/L (3.5-5.1)
[2020-07-13] MEDS: Metoprolol XL (24 HR) Succ 50 MG TAB.ER.24H PO SCH (09:25)
[2020-07-13] MEDS: Insulin DETEMIR 100 UNIT/ML X5UNITS SUBQ SCH (20:38)
[2020-07-13] MEDS: Melatonin 3 MG TABLET PO PRN (20:39)
[2020-07-13] MEDS: Acetaminophen 325 MG TABLET PO PRN (20:39)
[2020-07-14 01:09] LABS: Mean Corpuscular HGB Conc 29.2 g/dL (31.6-35.5); Red Cell Distribution Width 15.1 % (11.5-14.5)
[2020-07-14 01:12] LABS: Hematocrit 34.2 % (35.3-44.9); Immature Granulocytes % 0.8 % (0-4); Lymphocytes # 0.4 K/mcL (0.6-4.6); Lymphocytes % 6.3 %; Mean Corpuscular Hemoglobin 26.1 pg (28.0-33.3); Mean Corpuscular Volume 89.3 fL (83.0-100.0); Mean Platelet Volume 11.5 fL (9.4-12.4); Monocytes # 0.3 K/mcL (0.0-1.3); Monocytes % 4.4 %; Platelet Count 130 K/mcL (140-400); Red Blood Count 3.83 M/mcL (3.82-4.97); Segmented Neutrophils % 88.5 %; White Blood Count 6.4 K/mcL (4.3-11.1)
[2020-07-14 01:14] LABS: Neutrophils # 5.7 K/mcL (1.6-8.9)
[2020-07-14 01:38] LABS: Calcium 9.5 mg/dL (8.6-10.3); Potassium 4.2 mEq/L (3.5-5.1)
[2020-07-14] MEDS: Dexmedetomidine HCl 400 MCG/100 ML MLS IVC SCH (03:19)
[2020-07-14] MEDS: *HR* Enoxaparin 40 MG/0.4 ML SYRINGE SQ SCH (05:38)
[2020-07-14] MEDS: MethylPREDNISolone 40 MG/ML VIAL IVP SCH ×3 (05:38→21:53)
[2020-07-14] MEDS: Doxycycline 100 MG in 0.9 % Sodium Chloride Mini Bag 100 ML IVPB SCH ×2 (05:39→16:41)
[2020-07-14] MEDS: Metoprolol XL (24 HR) Succ 50 MG TAB.ER.24H PO SCH (07:37)
[2020-07-14] MEDS: hydrALAZINE 25 MG TABLET PO SCH ×3 (07:37→20:20)
[2020-07-14] MEDS: cloNIDine HCL 0.1 MG TABLET PO SCH ×3 (07:38→20:20)
[2020-07-14] MEDS: Aspirin Enteric Coated 81 MG Tablet PO SCH (07:38)
[2020-07-14] MEDS: allopurinoL 100 MG TABLET PO SCH (07:38)
[2020-07-14] MEDS: Insulin LISPRO 300 UNITS/3 ML VIAL SUBQ SCH ×4 (07:38→19:21)
[2020-07-14] MEDS: lisinopriL 20 MG TABLET PO SCH (07:38)
[2020-07-14] MEDS: Cholecalciferol (D-3) 1,000 UNIT (25MCG) TABLET PO SCH (07:38)
[2020-07-14] MEDS: Furosemide 40 MG/4 ML VIAL IVP SCH ×2 (07:39→16:41)
[2020-07-14] MEDS: Nystatin POWDER 30 GM BOTTLE TP SCH ×2 (07:54→20:23)
[2020-07-14] MEDS: Insulin DETEMIR 100 UNIT/ML X5UNITS SUBQ SCH (20:20)
[2020-07-15] MEDS ORDERED: Haloperidol Lactate 5 MG/ML VIAL IVP STA (00:06)
[2020-07-15] MEDS: Dexmedetomidine HCl 400 MCG/100 ML MLS IVC SCH ×7 (01:03→22:41)
[2020-07-15 01:56] LABS: Basophils % 0.1 %; Hematocrit 35.3 % (35.3-44.9); Hemoglobin 10.4 g/dL (11.5-15.4); Immature Granulocytes % 0.9 % (0-4); Lymphocytes # 0.3 K/mcL (0.6-4.6); Lymphocytes % 4.2 %; Mean Corpuscular HGB Conc 29.5 g/dL (31.6-35.5); Mean Corpuscular Hemoglobin 25.9 pg (28.0-33.3); Mean Platelet Volume 11.6 fL (9.4-12.4); Monocytes # 0.6 K/mcL (0.0-1.3); Monocytes % 6.9 %; Platelet Count 154 K/mcL (140-400); Red Blood Count 4.01 M/mcL (3.82-4.97); Red Cell Distribution Width 15.5 % (11.5-14.5); Segmented Neutrophils % 87.9 %; White Blood Count 7.9 K/mcL (4.3-11.1)
[2020-07-15 02:18] LABS: BUN/Creatinine Ratio 40 (6-26); Blood Urea Nitrogen 64 mg/dL (8-23); Calcium 9.6 mg/dL (8.6-10.3); Carbon Dioxide > 45 mEq/L (23-29); Chloride 85 mEq/L (98-107); Glucose 220 mg/dL (70-105); Osmolality,Calculated 309 (280-300); Sodium 137 mEq/L (136-145); eGFR For African Americans 39 (> 60); eGFR For Non-African Americans 32 (> 60)
[2020-07-15] MEDS: MethylPREDNISolone 40 MG/ML VIAL IVP SCH ×3 (05:38→21:10)
[2020-07-15] MEDS: Doxycycline 100 MG in 0.9 % Sodium Chloride Mini Bag 100 ML IVPB SCH ×2 (05:38→17:33)
[2020-07-15] MEDS: *HR* Enoxaparin 40 MG/0.4 ML SYRINGE SQ SCH (05:38)
[2020-07-15] MEDS: Insulin LISPRO 300 UNITS/3 ML VIAL SUBQ SCH ×4 (07:33→21:11)
[2020-07-15 08:43] LABS: ABG Base Excess 21 mEq/L (-2 to 3); ABG HCO3 50 mEq/L (21-27); ABG Oxygen Saturation 92 % (95-98); ABG PCO2 80 mmHg (35-45); ABG PH 7.41 pH Units (7.32-7.45); ABG PO2 68 mmHg (85-104); ABG TCO2 > 50 mEq/L (20-26)
[2020-07-15] MEDS: Furosemide 40 MG/4 ML VIAL IVP SCH (08:50)
[2020-07-15] MEDS ORDERED: Haloperidol Lactate 5 MG/ML VIAL IVP ONE ×2 (09:50→11:06)
[2020-07-15] MEDS: Aspirin Enteric Coated 81 MG Tablet PO SCH ×2 (11:13→13:09)
[2020-07-15] MEDS: Metoprolol XL (24 HR) Succ 50 MG TAB.ER.24H PO SCH (11:14)
[2020-07-15] MEDS: cloNIDine HCL 0.1 MG TABLET PO SCH ×3 (11:14→21:10)
[2020-07-15] MEDS: Cholecalciferol (D-3) 1,000 UNIT (25MCG) TABLET PO SCH ×2 (11:14→13:09)
[2020-07-15] MEDS: Nystatin POWDER 30 GM BOTTLE TP SCH ×2 (11:14→21:11)
[2020-07-15] MEDS: lisinopriL 20 MG TABLET PO SCH (11:14)
[2020-07-15] MEDS: hydrALAZINE 25 MG TABLET PO SCH ×3 (11:14→21:10)
[2020-07-15] MEDS: allopurinoL 100 MG TABLET PO SCH ×2 (11:14→13:10)
[2020-07-15] MEDS: Insulin DETEMIR 100 UNIT/ML X5UNITS SUBQ SCH (21:11)
[2020-07-16 01:37] LABS: Hematocrit 37.5 % (35.3-44.9); Hemoglobin 11.2 g/dL (11.5-15.4); Lymphocytes # 0.4 K/mcL (0.6-4.6); Lymphocytes % 4.6 %; Mean Corpuscular HGB Conc 29.9 g/dL (31.6-35.5); Mean Corpuscular Hemoglobin 25.4 pg (28.0-33.3); Mean Platelet Volume 12.1 fL (9.4-12.4); Monocytes # 0.6 K/mcL (0.0-1.3); Monocytes % 7.9 %; Platelet Count 125 K/mcL (140-400); Red Blood Count 4.41 M/mcL (3.82-4.97); Red Cell Distribution Width 15.1 % (11.5-14.5); Segmented Neutrophils % 86.5 %; White Blood Count 8.1 K/mcL (4.3-11.1)
[2020-07-16] MEDS: Dexmedetomidine HCl 400 MCG/100 ML MLS IVC SCH ×2 (02:14→05:55)
[2020-07-16] MEDS: *HR* Enoxaparin 40 MG/0.4 ML SYRINGE SQ SCH (05:13)
[2020-07-16] MEDS: Doxycycline 100 MG in 0.9 % Sodium Chloride Mini Bag 100 ML IVPB SCH ×2 (05:13→16:44)
[2020-07-16] MEDS: MethylPREDNISolone 40 MG/ML VIAL IVP SCH ×2 (05:13→14:19)
[2020-07-16] MEDS: cloNIDine HCL 0.1 MG TABLET PO SCH ×3 (08:09→20:10)
[2020-07-16] MEDS: hydrALAZINE 25 MG TABLET PO SCH ×3 (08:09→20:10)
[2020-07-16] MEDS: lisinopriL 20 MG TABLET PO SCH (08:10)
[2020-07-16] MEDS: Metoprolol XL (24 HR) Succ 50 MG TAB.ER.24H PO SCH (08:11)
[2020-07-16] MEDS: Nystatin POWDER 30 GM BOTTLE TP SCH ×2 (08:12→20:11)
[2020-07-16] MEDS: Insulin LISPRO 300 UNITS/3 ML VIAL SUBQ SCH ×4 (08:16→20:11)
[2020-07-16] MEDS: Insulin DETEMIR 100 UNIT/ML X5UNITS SUBQ SCH (20:13)
[2020-07-17 02:32] LABS: Hematocrit 39.9 % (35.3-44.9); Hemoglobin 11.7 g/dL (11.5-15.4); Mean Corpuscular HGB Conc 29.3 g/dL (31.6-35.5); Mean Corpuscular Hemoglobin 25.8 pg (28.0-33.3); Mean Corpuscular Volume 87.9 fL (83.0-100.0); Mean Platelet Volume 11.9 fL (9.4-12.4); Platelet Count 164 K/mcL (140-400); Red Blood Count 4.54 M/mcL (3.82-4.97); Red Cell Distribution Width 15.8 % (11.5-14.5)
[2020-07-17 02:34] LABS: White Blood Count 13.1 K/mcL (4.3-11.1)
[2020-07-17 02:53] LABS: Calcium 9.2 mg/dL (8.6-10.3); Potassium 3.8 mEq/L (3.5-5.1)
[2020-07-17] MEDS: Doxycycline 100 MG in 0.9 % Sodium Chloride Mini Bag 100 ML IVPB SCH ×2 (05:59→17:31)
[2020-07-17] MEDS: *HR* Enoxaparin 40 MG/0.4 ML SYRINGE SQ SCH (06:01)
[2020-07-17] MEDS: Insulin LISPRO 300 UNITS/3 ML VIAL SUBQ SCH ×4 (09:04→21:36)
[2020-07-17] MEDS: Cholecalciferol (D-3) 1,000 UNIT (25MCG) TABLET PO SCH (10:05)
[2020-07-17] MEDS: Aspirin Enteric Coated 81 MG Tablet PO SCH (10:06)
[2020-07-17] MEDS: allopurinoL 100 MG TABLET PO SCH (10:06)
[2020-07-17] MEDS: hydrALAZINE 25 MG TABLET PO SCH ×3 (10:10→21:36)
[2020-07-17] MEDS: cloNIDine HCL 0.1 MG TABLET PO SCH ×3 (10:10→21:36)
[2020-07-17] MEDS: Metoprolol XL (24 HR) Succ 50 MG TAB.ER.24H PO SCH (10:11)
[2020-07-17] MEDS: lisinopriL 20 MG TABLET PO SCH (10:11)
[2020-07-17] MEDS: Nystatin POWDER 30 GM BOTTLE TP SCH ×2 (10:11→21:36)
[2020-07-17] MEDS: Insulin DETEMIR 100 UNIT/ML X5UNITS SUBQ SCH (21:36)
[2020-07-18 05:38] LABS: Basophils % 0.1 %; Eosinophils # 0.2 K/mcL (0.0-0.6); Eosinophils % 1.4 %; Hematocrit 36.9 % (35.3-44.9); Hemoglobin 10.4 g/dL (11.5-15.4); Immature Granulocytes % 0.6 % (0-4); Lymphocytes # 1.1 K/mcL (0.6-4.6); Lymphocytes % 9.2 %; Mean Corpuscular HGB Conc 28.2 g/dL (31.6-35.5); Mean Corpuscular Hemoglobin 25.5 pg (28.0-33.3); Mean Corpuscular Volume 90.4 fL (83.0-100.0); Mean Platelet Volume 12.3 fL (9.4-12.4); Monocytes # 1.8 K/mcL (0.0-1.3); Monocytes % 14.5 %; Neutrophils # 9.1 K/mcL (1.6-8.9); Platelet Count 140 K/mcL (140-400); Red Blood Count 4.08 M/mcL (3.82-4.97); Red Cell Distribution Width 16.3 % (11.5-14.5); Segmented Neutrophils % 74.2 %; White Blood Count 12.2 K/mcL (4.3-11.1)
[2020-07-18 05:58] LABS: Calcium 8.5 mg/dL (8.6-10.3); Potassium 3.7 mEq/L (3.5-5.1)
[2020-07-18 06:01] LABS: Anisocytosis 1+ (Not Present); Hypochromasia Present (Not Present); Platelet Estimate Normal (Normal); Poikilocytosis 1+ (Not Present)
[2020-07-18] MEDS: Doxycycline 100 MG in 0.9 % Sodium Chloride Mini Bag 100 ML IVPB SCH (06:15)
[2020-07-18] MEDS: *HR* Enoxaparin 40 MG/0.4 ML SYRINGE SQ SCH (06:16)
[2020-07-18 06:34] LABS: ABG Base Excess 17 mEq/L (-2 to 3); ABG HCO3 46 mEq/L (21-27); ABG Oxygen Saturation 91 % (95-98); ABG PCO2 84 mmHg (35-45); ABG PH 7.35 pH Units (7.32-7.45); ABG PO2 68 mmHg (85-104); ABG TCO2 49 mEq/L (20-26)
[2020-07-18] MEDS: Insulin LISPRO 300 UNITS/3 ML VIAL SUBQ SCH ×4 (08:53→20:14)
[2020-07-18] MEDS: cloNIDine HCL 0.1 MG TABLET PO SCH (09:01)
[2020-07-18] MEDS: hydrALAZINE 25 MG TABLET PO SCH (09:02)
[2020-07-18] MEDS: lisinopriL 20 MG TABLET PO SCH (09:02)
[2020-07-18] MEDS: allopurinoL 100 MG TABLET PO SCH (09:04)
[2020-07-18] MEDS: Metoprolol XL (24 HR) Succ 50 MG TAB.ER.24H PO SCH (09:04)
[2020-07-18] MEDS: Aspirin Enteric Coated 81 MG Tablet PO SCH (09:05)
[2020-07-18] MEDS: Cholecalciferol (D-3) 1,000 UNIT (25MCG) TABLET PO SCH (09:05)
[2020-07-18] MEDS ORDERED: 0.9 % Sodium Chloride 500 ML IV ONE ×2 (11:25→18:37)
[2020-07-18] MEDS ORDERED: 0.9 % Sodium Chloride 500 ML ONE (11:26)
[2020-07-18 11:54] LABS: ABG Base Excess 15 mEq/L (-2 to 3); ABG HCO3 43 mEq/L (21-27); ABG Oxygen Saturation 96 % (95-98); ABG PCO2 71 mmHg (35-45); ABG PH 7.39 pH Units (7.32-7.45); ABG PO2 88 mmHg (85-104); ABG TCO2 45 mEq/L (20-26); Blood Gas Modality ASSIST CONTROL; Blood Gas Pressure Support 8 cm H2O
[2020-07-18 12:09] LABS: Hematocrit 36.4 % (35.3-44.9); Hemoglobin 10.4 g/dL (11.5-15.4)
[2020-07-18] MEDS: Nystatin POWDER 30 GM BOTTLE TP SCH ×2 (12:21→20:54)
[2020-07-18] MEDS ORDERED: 0.9 % Sodium Chloride 500 ML IVPB ONE (15:45)
[2020-07-18] MEDS ORDERED: 0.9 % Sodium Chloride 500 ML IVC ONE (18:40)
[2020-07-18] MEDS: Piperacillin/Tazobactam 3.375 GM in 0.9 % Sodium Chloride Mini Bag 100 ML IVPB SCH (19:56)
[2020-07-18] MEDS: 0.9 % Sodium Chloride 1,000 ML IVC SCH (20:47)
[2020-07-18] MEDS: Insulin DETEMIR 100 UNIT/ML X5UNITS SUBQ SCH (21:02)
[2020-07-19] MEDS ORDERED: Piperacillin/Tazobactam 3.375 GM in 0.9 % Sodium Chloride Mini Bag 100 ML IVPB SCH
[2020-07-19 03:40] LABS: ABG Base Excess 16 mEq/L (-2 to 3); ABG HCO3 43 mEq/L (21-27); ABG Oxygen Saturation 97 % (95-98); ABG PCO2 65 mmHg (35-45); ABG PH 7.43 pH Units (7.32-7.45); ABG PO2 94 mmHg (85-104); ABG TCO2 45 mEq/L (20-26)
[2020-07-19] MEDS: Piperacillin/Tazobactam 3.375 GM in 0.9 % Sodium Chloride Mini Bag 100 ML IVPB SCH ×3 (04:06→20:01)
[2020-07-19] MEDS: *HR* Enoxaparin 40 MG/0.4 ML SYRINGE SQ SCH (05:29)
[2020-07-19] MEDS: Insulin LISPRO 300 UNITS/3 ML VIAL SUBQ SCH ×4 (08:35→21:39)
[2020-07-19] MEDS: Metoprolol XL (24 HR) Succ 50 MG TAB.ER.24H PO SCH (08:42)
[2020-07-19] MEDS: Cholecalciferol (D-3) 1,000 UNIT (25MCG) TABLET PO SCH (08:47)
[2020-07-19] MEDS: Nystatin POWDER 30 GM BOTTLE TP SCH ×2 (08:48→21:42)
[2020-07-19] MEDS: 0.9 % Sodium Chloride 1,000 ML IVC SCH (08:48)
[2020-07-19] MEDS: Aspirin Enteric Coated 81 MG Tablet PO SCH (08:48)
[2020-07-19] MEDS: allopurinoL 100 MG TABLET PO SCH (08:48)
[2020-07-19] MEDS: Insulin DETEMIR 100 UNIT/ML X5UNITS SUBQ SCH (21:39)
[2020-07-20] MEDS: Piperacillin/Tazobactam 3.375 GM in 0.9 % Sodium Chloride Mini Bag 100 ML IVPB SCH ×3 (03:18→18:38)
[2020-07-20] MEDS: *HR* Enoxaparin 40 MG/0.4 ML SYRINGE SQ SCH (05:50)
[2020-07-20] MEDS: Insulin LISPRO 300 UNITS/3 ML VIAL SUBQ SCH ×4 (08:02→20:51)
[2020-07-20] MEDS: Aspirin Enteric Coated 81 MG Tablet PO SCH (08:06)
[2020-07-20] MEDS: allopurinoL 100 MG TABLET PO SCH (08:08)
[2020-07-20] MEDS: Metoprolol XL (24 HR) Succ 50 MG TAB.ER.24H PO SCH (08:09)
[2020-07-20] MEDS: Cholecalciferol (D-3) 1,000 UNIT (25MCG) TABLET PO SCH (08:11)
[2020-07-20] MEDS: Nystatin POWDER 30 GM BOTTLE TP SCH ×2 (09:12→20:52)
[2020-07-20] MEDS: Insulin DETEMIR 100 UNIT/ML X5UNITS SUBQ SCH (20:51)
[2020-07-21] MEDS: Piperacillin/Tazobactam 3.375 GM in 0.9 % Sodium Chloride Mini Bag 100 ML IVPB SCH ×3 (02:46→20:26)
[2020-07-21] MEDS: *HR* Enoxaparin 40 MG/0.4 ML SYRINGE SQ SCH (06:23)
[2020-07-21] MEDS: Insulin LISPRO 300 UNITS/3 ML VIAL SUBQ SCH ×4 (08:22→20:38)
[2020-07-21] MEDS: Metoprolol XL (24 HR) Succ 50 MG TAB.ER.24H PO SCH (08:37)
[2020-07-21] MEDS: Aspirin Enteric Coated 81 MG Tablet PO SCH (08:37)
[2020-07-21] MEDS: Cholecalciferol (D-3) 1,000 UNIT (25MCG) TABLET PO SCH (08:37)
[2020-07-21] MEDS: allopurinoL 100 MG TABLET PO SCH (08:37)
[2020-07-21] MEDS: Nystatin POWDER 30 GM BOTTLE TP SCH ×2 (08:39→20:48)
[2020-07-21] MEDS: Insulin DETEMIR 100 UNIT/ML X5UNITS SUBQ SCH (20:38)
[2020-07-22] MEDS: Piperacillin/Tazobactam 3.375 GM in 0.9 % Sodium Chloride Mini Bag 100 ML IVPB SCH ×2 (02:51→11:49)
[2020-07-22] MEDS: *HR* Enoxaparin 40 MG/0.4 ML SYRINGE SQ SCH (05:19)
[2020-07-22] MEDS: Insulin LISPRO 300 UNITS/3 ML VIAL SUBQ SCH ×2 (08:38→12:10)
[2020-07-22] MEDS: allopurinoL 100 MG TABLET PO SCH (09:47)
[2020-07-22] MEDS: Cholecalciferol (D-3) 1,000 UNIT (25MCG) TABLET PO SCH (09:47)
[2020-07-22] MEDS: Metoprolol XL (24 HR) Succ 50 MG TAB.ER.24H PO SCH (09:47)
[2020-07-22] MEDS: Nystatin POWDER 30 GM BOTTLE TP SCH (09:48)
[2020-07-22] MEDS: Aspirin Enteric Coated 81 MG Tablet PO SCH (09:48)
[2020-07-22 14:59] VITALS: BP 130/77
== END 2020-07-22 16:22 | disposition home health service (06) | DRG 291 ==
LOC: ICNU → 2NNU 07-12 17:33 → 3ANU 07-17 18:36
PROVIDERS: ADMIT Internal Medicine; ATTEND Internal Medicine